=== PATIENT | female | born 1950 | race Caucasian/White ===

== ENCOUNTER → 2017-01-26 | Outpatient (CLI) | payer OTHER ==
[2017-01-26 16:51] LABS: CHCM 32.1; HCT 42.9 % (34.0-46.0); HDW 2.16; MCH 32.6 pg (25.0-35.0); MCHC 32.6 g/dL (31.0-37.0); MCV 99.9 fL (80.0-100.0); Mean Platelet Volume 8.9; RBC 4.29 m/uL (3.80-5.40); WBC 6.5 k/uL (3.8-10.6)
[2017-01-26 17:20] LABS: ALT 34 U/L (9-52); AST 21 U/L (14-36); Alkaline Phosphatase 95 U/L (38-126); Anion Gap 11 mmol/L; Blood Urea Nitrogen 8 mg/dL (7-17); Calcium 9.6 mg/dL (8.4-10.2); Carbon Dioxide 25 mmol/L (22-30); Chloride 106 mmol/L (98-107); Glucose 91 mg/dL (74-99); Non-African American GFR(MDRD) >60 (>60 ml/min/1.73 sqM); Potassium 4.3 mmol/L (3.5-5.1); Sodium 142 mmol/L (137-145); Total Bilirubin 0.3 mg/dL (0.2-1.3); Total Protein 6.6 g/dL (6.3-8.2)
[2017-01-26 17:34] LABS: Prolactin 8.1 ng/mL (3.0-18.6)
[2017-01-26 18:05] LABS: Vitamin B12 449 pg/mL (239-931)
== END | disposition home or self-care (01) ==
LOC: LABWHC1 16:10
PROVIDERS: ATTEND Internal Medicine Endocrinology, Diabetes & Metabolism
DX: R53.83 Other fatigue (principal)
CPT/HCPCS: 36415; 80053; 82533; 82607; 84146; 84439; 84443; 84481; 85027

== ENCOUNTER 2017-02-21 16:04 | Emergency (ER) | payer OTHER ==
[2017-02-21 16:16] VITALS: RESP 18; TEMP 98.1
[2017-02-21] MEDS ORDERED: SODIUM CHLORIDE 0.9% 1,000 ML IV STA (16:20)
[2017-02-21] MEDS ORDERED: LORazepam 2 MG/ML SYRINGE IV STA (16:20)
--- NOTE | 2017-02-21 16:24 | ED ---
General Adult HPI - General Chief complaint: Arrhythmia/Palpitations Stated complaint: Palpitations Time Seen by Provider: 02/21/17 16:14 Source: patient, RN notes reviewed Mode of arrival: EMS Limitations: no limitations - History of Present Illness Initial comments: Patient is a pleasant [age]-year-old female presenting to the emergency department complaining of palpitations. Onset of symptoms was several months ago. Patient admits to having some associated anxiety and tremors. Symptoms are intermittent and occur daily. Patient has seen a couple of doctors for this previously. Patient has also seen a psychiatrist. No chest pain. Patient is currently symptom-free. - Related Data Home Medications Medication Instructions Recorded Confirmed Albuterol Inhaler [Ventolin Hfa 1 - 2 puff INHALATION RT-BID 02/21/17 02/21/17 Inhaler] Diazepam [Valium] 5 mg PO BID PRN 02/21/17 02/21/17 Losartan Potassium [Cozaar] 50 mg PO HS 02/21/17 02/21/17 Multivit with Calcium,Iron,Min 1 tab PO DAILY 02/21/17 02/21/17 [Women's Multivitamin] [place]-3 Fatty Acids/Fish Oil [Fish 1 cap PO DAILY 02/21/17 02/21/17 Oil 1,000 mg Softgel] PARoxetine HCL [Paxil] 20 mg PO HS 02/21/17 02/21/17 Simvastatin [Zocor] 20 mg PO HS 02/21/17 02/21/17 Ubidecarenone [Co Q-10] 100 mg PO DAILY 02/21/17 02/21/17 Vitamin B Complex 1 cap PO DAILY 02/21/17 02/21/17 amLODIPine [Norvasc] 5 mg PO DAILY 02/21/17 02/21/17 Allergies Allergy/AdvReac Type Severity Reaction Status Date / Time No Known Allergies Allergy Unverified 02/21/17 16:41 Review of Systems ROS Statement: Those systems with pertinent positive or pertinent negative responses have been documented in the HPI. ROS Other: All systems not noted in ROS Statement are negative. Constitutional: Denies: fever Eyes: Denies: eye pain ENT: Denies: ear pain Respiratory: Denies: cough Cardiovascular: Reports: palpitations. Denies: chest pain Endocrine: Denies: heat or cold intolerance Gastrointestinal: Denies: abdominal pain Genitourinary: Denies: dysuria Musculoskeletal: Denies: back pain Skin: Denies: rash Neurological: Reports: headache (Patient does have occasional headaches.). Denies: weakness, confusion Past Medical History Past Medical History: COPD History of Any Multi-Drug Resistant Organisms: None Reported Past Surgical History: Breast Surgery, Tubal Ligation Past Psychological History: Depression Smoking Status: Current every day smoker Past Alcohol Use History: None Reported Past Drug Use History: None Reported General Exam Limitations: no limitations General appearance: alert, in no apparent distress Head exam: Present: atraumatic Eye exam: Present: normal appearance, PERRL ENT exam: Present: normal oropharynx Neck exam: Present: normal inspection Respiratory exam: Present: normal lung sounds bilaterally Cardiovascular Exam: Present: regular rate, normal rhythm Expanded Peripheral pulses: 2+: Radial (R), Radial (L) GI/Abdominal exam: Present: soft. Absent: tenderness Extremities exam: Present: normal inspection. Absent: pedal edema, calf tenderness Neurological exam: Present: alert Psychiatric exam: Present: anxious Skin exam: Absent: rash Course Vital Signs 02/21/17 16:13 Temperature 98.1 F Pulse Rate 80 Respiratory 18 Rate Blood Pressure 166/71 O2 Sat by Pulse 97 Oximetry EKG Findings - EKG Comments: EKG Findings:: Normal sinus rhythm at 77. SC 138. QRS 88. QT 44. QTC 457. Normal axis. Normal QRS. Normal ST-T. Medical Decision Making - Medical Decision Making Patient reexamined and resting comfortably in bed. Patient symptom-free at this time. Patient appears much more relaxed. Patient updated on results and need for follow-up. Patient is advised to consider Holter monitor. - Lab Data Result diagrams: 02/21/17 16:35 02/21/17 16:35 Lab Results 02/21/17 02/21/17 02/21/17 Range/Units 16:35 16:35 16:35 WBC 6.8 (3.8-10.6) k/uL RBC 4.67 (3.80-5.40) m/uL Hgb 14.8 (11.4-16.0) gm/dL Hct 45.5 (34.0-46.0) % MCV 97.3 (80.0-100.0) fL MCH 31.8 (25.0-35.0) pg MCHC 32.6 (31.0-37.0) g/dL RDW 13.3 (11.5-15.5) % Plt Count 250 (150-450) k/uL Neutrophils % 66 % Lymphocytes % 24 % Monocytes % 7 % Eosinophils % 1 % Basophils % 0 % Neutrophils # 4.5 (1.3-7.7) k/uL Lymphocytes # 1.6 (1.0-4.8) k/uL Monocytes # 0.5 (0-1.0) k/uL Eosinophils # 0.1 (0-0.7) k/uL Basophils # 0.0 (0-0.2) k/uL PT (9.0-12.0) sec INR (<1.1) APTT (22.0-30.0) sec Sodium 140 (137-145) mmol/L Potassium 4.0 (3.5-5.1) mmol/L Chloride 105 (98-107) mmol/L Carbon Dioxide 24 (22-30) mmol/L Anion Gap 11 mmol/L BUN 5 L (7-17) mg/dL Creatinine 0.66 (0.52-1.04) mg/dL Est GFR (MDRD) Af Amer >60 (>60 ml/min/1.73 sqM) Est GFR (MDRD) Non-Af >60 (>60 ml/min/1.73 sqM) Glucose 106 H (74-99) mg/dL Calcium 9.8 (8.4-10.2) mg/dL Magnesium 1.9 (1.6-2.3) mg/dL Total Bilirubin 0.6 (0.2-1.3) mg/dL AST 27 (14-36) U/L ALT 28 (9-52) U/L Alkaline Phosphatase 96 (38-126) U/L Total Creatine Kinase 101 (30-135) U/L CK-MB (CK-2) 0.5 (0.0-2.4) ng/mL CK-MB (CK-2) Rel Index 0.5 Troponin I <0.012 (0.000-0.034) ng/mL Total Protein 7.4 (6.3-8.2) g/dL Albumin 4.5 (3.5-5.0) g/dL TSH 1.090 (0.465-4.680) mIU/L Free T4 0.90 (0.78-2.19) ng/dL Free T3 pg/mL 3.4 (2.8-5.3) pg/ml 02/21/17 Range/Units 16:35 WBC (3.8-10.6) k/uL RBC (3.80-5.40) m/uL Hgb (11.4-16.0) gm/dL Hct (34.0-46.0) % MCV (80.0-100.0) fL MCH (25.0-35.0) pg MCHC (31.0-37.0) g/dL RDW (11.5-15.5) % Plt Count (150-450) k/uL Neutrophils % % Lymphocytes % % Monocytes % % Eosinophils % % Basophils % % Neutrophils # (1.3-7.7) k/uL Lymphocytes # (1.0-4.8) k/uL Monocytes # (0-1.0) k/uL Eosinophils # (0-0.7) k/uL Basophils # (0-0.2) k/uL PT 10.2 (9.0-12.0) sec INR 1.0 (<1.1) APTT 23.8 (22.0-30.0) sec Sodium (137-145) mmol/L Potassium (3.5-5.1) mmol/L Chloride (98-107) mmol/L Carbon Dioxide (22-30) mmol/L Anion Gap mmol/L BUN (7-17) mg/dL Creatinine (0.52-1.04) mg/dL Est GFR (MDRD) Af Amer (>60 ml/min/1.73 sqM) Est GFR (MDRD) Non-Af (>60 ml/min/1.73 sqM) Glucose (74-99) mg/dL Calcium (8.4-10.2) mg/dL Magnesium (1.6-2.3) mg/dL Total Bilirubin (0.2-1.3) mg/dL AST (14-36) U/L ALT (9-52) U/L Alkaline Phosphatase (38-126) U/L Total Creatine Kinase (30-135) U/L CK-MB (CK-2) (0.0-2.4) ng/mL CK-MB (CK-2) Rel Index Troponin I (0.000-0.034) ng/mL Total Protein (6.3-8.2) g/dL Albumin (3.5-5.0) g/dL TSH (0.465-4.680) mIU/L Free T4 (0.78-2.19) ng/dL Free T3 pg/mL (2.8-5.3) pg/ml - Radiology Data Radiology results: report reviewed (Computed tomography scan of the brain shows no acute process.), image reviewed (Chest x-ray shows no acute process.) Disposition Clinical Impression: Palpitations Disposition: HOME SELF-CARE Condition: Stable Instructions: Palpitations (ED) Additional Instructions: Please follow-up tomorrow with Dr. Kenyon as planned. Consider Holter monitor. Return for changing or worsening symptoms or other concerns. Referrals: Lavern Kenyon MD [Primary Care Provider] - 1-2 days
[2017-02-21 16:47] LABS: Basophils % (A) 0 %; CH 31.4; CHCM 32.4; Eosinophils # (A) 0.1 k/uL (0-0.7); Eosinophils % (A) 1 %; HCT 45.5 % (34.0-46.0); HGB 14.8 gm/dL (11.4-16.0); Luc # (Auto) 0.11; Luc % (Auto) 2; Lymphocytes # (A) 1.6 k/uL (1.0-4.8); Lymphocytes % (A) 24 %; MCH 31.8 pg (25.0-35.0); MCHC 32.6 g/dL (31.0-37.0); MCV 97.3 fL (80.0-100.0); Monocytes # (A) 0.5 k/uL (0-1.0); Monocytes % (A) 7 %; Neutrophils # (A) 4.5 k/uL (1.3-7.7); Neutrophils % (A) 66 %; RBC 4.67 m/uL (3.80-5.40); RDW 13.3 % (11.5-15.5); WBC 6.8 k/uL (3.8-10.6); WBC (Perox) 6.63
[2017-02-21 16:54] LABS: Partial Thromboplastin Time 23.8 sec (22.0-30.0); Prothrombin Time 10.2 sec (9.0-12.0)
[2017-02-21 17:02] LABS: ALT 28 U/L (9-52); AST 27 U/L (14-36); Alkaline Phosphatase 96 U/L (38-126); Anion Gap 11 mmol/L; Blood Urea Nitrogen 5 mg/dL (7-17); Calcium 9.8 mg/dL (8.4-10.2); Carbon Dioxide 24 mmol/L (22-30); Chloride 105 mmol/L (98-107); Glucose 106 mg/dL (74-99); Magnesium 1.9 mg/dL (1.6-2.3); Non-African American GFR(MDRD) >60 (>60 ml/min/1.73 sqM); Sodium 140 mmol/L (137-145); Total Bilirubin 0.6 mg/dL (0.2-1.3); Total Protein 7.4 g/dL (6.3-8.2)
[2017-02-21 17:12] LABS: Creatine Kinase 101 U/L (30-135)
[2017-02-21 17:24] LABS: Creatine Kinase MB 0.5 ng/mL (0.0-2.4); Troponin I <0.012 ng/mL (0.000-0.034)
--- NOTE | 2017-02-21 17:36 | XR ---
EXAMINATION TYPE: XR chest 1V portable DATE OF EXAM: 02/21/2017 5:25 PM COMPARISON: NONE HISTORY: Headache and neck pain with tachycardia TECHNIQUE: Single frontal view of the chest is obtained. FINDINGS: There is no focal air space opacity, pleural effusion, or pneumothorax seen. The cardiac silhouette size is within normal limits. Smoothly marginated calcific opacity projecting over the rig ht midlung zone just inferior to the scapula, likely pulmonary granuloma. The osseous structures are intact. IMPRESSION: No acute process.
--- NOTE | 2017-02-21 17:43 | CT ---
EXAMINATION TYPE: CT brain wo con DATE OF EXAM: 02/21/2017 5:30 PM COMPARISON: NONE HISTORY: headaches CT DLP: 1022 mGycm Automated exposure control for dose reduction was used. FINDINGS: There is no acute intracranial hemorrhage, mass effect, or midline shift identified. The ventricles and sulci are within normal limits in size. The globes are intact and the visualized sinuses are noel ar. IMPRESSION: No acute intracranial hemorrhage, mass effect, or midline shift is seen.
[2017-02-21 18:04] VITALS: BP 133/63; PULSE 73
== END 2017-02-21 18:25 | disposition home or self-care (01) ==
LOC: EC 16:04
DX: R00.2 Palpitations (principal); R25.1 Tremor, unspecified; F41.9 Anxiety disorder, unspecified; J44.9 Chronic obstructive pulmonary disease, unspecified; F32.9 Major depressive disorder, single episode, unspecified; F17.200 Nicotine dependence, unspecified, uncomplicated; Z79.899 Other long term (current) drug therapy
CPT/HCPCS: 99285; 96374; 36415; 93005; 84439; 84481; 80053; 82550; 82553; 83735; 84443; 84484; 85025; 85610; 85730; 71010; 70450; J2060

== ENCOUNTER 2017-03-03 17:44 | Emergency (ER) | payer OTHER ==
[2017-03-03 17:51] VITALS: RESP 16
[2017-03-03 19:58] VITALS: BP 134/76; PULSE 93; TEMP 98.5
[2017-03-03] MEDS ORDERED: LORazepam 1 MG TAB PO STA (20:10)
--- NOTE | 2017-03-03 20:13 | ED ---
Anxiety HPI - General Chief Complaint: Anxiety Stated Complaint: Anxiety Time Seen by Provider: 03/03/17 19:27 Source: patient, RN notes reviewed, old records reviewed Mode of arrival: ambulatory - History of Present Illness Initial Comments: Patient is a 66 year old woman with chief omplaint of anxiety. She reports she has suffered from anxiety for many months, and her PCP and psychiatrist have switched her from paxil to celexa to prozac, back to paxil. She states she was seen in and given Ativan. Patient reports she saw her PCP and was prescribed ativan and has been taking it as it was directed. She states that she called her PCP for refill of medication, and PCP is out of town. She denies any suicidal ideation, denies homicidal thoughts. She reports that she has racing thoughts and can't calm down. She states she has appt with psychiatrist in 2 weeks. - Related Data Home Medications: Home Medications Medication Instructions Recorded Confirmed Albuterol Inhaler [Ventolin Hfa 2 puff INHALATION RT-BID PRN 02/21/17 03/03/17 Inhaler] Losartan Potassium [Cozaar] 50 mg PO HS 02/21/17 03/03/17 Multivit with Calcium,Iron,Min 1 tab PO DAILY 02/21/17 03/03/17 [Women's Multivitamin] PARoxetine HCL [Paxil] 40 mg PO HS 02/21/17 03/03/17 amLODIPine [Norvasc] 5 mg PO DAILY 02/21/17 03/03/17 LORazepam [Ativan] 0.5 mg PO QID PRN 03/03/17 03/03/17 Previous Rx's Medication Instructions Recorded LORazepam [Ativan] 1 mg PO BID #20 tab 03/03/17 Allergies/Adverse Reactions: Allergies Allergy/AdvReac Type Severity Reaction Status Date / Time No Known Allergies Allergy Verified 03/03/17 19:31 Review of Systems ROS Statement: Those systems with pertinent positive or pertinent negative responses have been documented in the HPI. ROS Other: All systems not noted in ROS Statement are negative. Past Medical History Past Medical History: COPD History of Any Multi-Drug Resistant Organisms: None Reported Past Surgical History: Breast Surgery, Tubal Ligation Past Psychological History: Anxiety, Depression Smoking Status: Current every day smoker Past Alcohol Use History: None Reported Past Drug Use History: None Reported General Exam - General Exam Comments Initial Comments: pleasant, anxious appearing 66 year old female, no distress. Limitations: no limitations General appearance: alert, in no apparent distress Head exam: Present: atraumatic, normocephalic, normal inspection Eye exam: Present: normal appearance, PERRL, EOMI. Absent: scleral icterus, conjunctival injection, periorbital swelling ENT exam: Present: normal exam, mucous membranes moist Neck exam: Present: normal inspection. Absent: tenderness, meningismus, lymphadenopathy Respiratory exam: Present: normal lung sounds bilaterally. Absent: respiratory distress, wheezes, rales, rhonchi, stridor Cardiovascular Exam: Present: regular rate, normal rhythm, normal heart sounds. Absent: systolic murmur, diastolic murmur, rubs, gallop, clicks GI/Abdominal exam: Present: soft, normal bowel sounds. Absent: distended, tenderness, guarding, rebound, rigid Extremities exam: Present: normal inspection, full ROM, normal capillary refill. Absent: tenderness, pedal edema, joint swelling, calf tenderness Back exam: Present: normal inspection Neurological exam: Present: alert, oriented X3, CN II-XII intact Psychiatric exam: Present: normal affect, normal mood, anxious Skin exam: Present: warm, dry, intact, normal color. Absent: rash Course Vital Signs 03/03/17 03/03/17 17:46 19:32 Temperature 98.1 F 98.5 F Pulse Rate 98 93 Respiratory 16 16 Rate Blood Pressure 146/66 134/76 O2 Sat by Pulse 97 97 Oximetry Medical Decision Making - Medical Decision Making Patient is a 66 year old woman with chief omplaint of anxiety. She reports she has suffered from anxiety for many months, and her PCP and psychiatrist have switched her from paxil to celexa to prozac, back to paxil. She states she was seen in and given Ativan. Patient reports she saw her PCP and was prescribed ativan and has been taking it as it was directed. She states that she called her PCP for refill of medication, and PCP is out of town. Patient given refill for ativan, discussed follow up with PCP. Patient agrees to see psychiatrist. Patient understands treatment plan and return parameters, denies any other physical symptoms. Disposition Clinical Impression: Acute anxiety Disposition: HOME SELF-CARE Condition: Good Instructions: Generalized Anxiety Disorder (ED) Additional Instructions: Patient resting medications and follow-up with primary care provider. Return to the emergency department if any alarming signs or symptoms occur. Prescriptions: LORazepam [Ativan] 1 mg PO BID #20 tab Referrals: Lavern Kenyon MD [Primary Care Provider] - 1-2 days Time of Disposition: 20:10
== END 2017-03-03 20:39 | disposition home or self-care (01) ==
LOC: EC 17:44
DX: F41.9 Anxiety disorder, unspecified (principal); F32.9 Major depressive disorder, single episode, unspecified; F17.200 Nicotine dependence, unspecified, uncomplicated; Z79.899 Other long term (current) drug therapy
CPT/HCPCS: 99283

== ENCOUNTER → 2017-03-07 | Outpatient (CLI) | payer OTHER ==
--- NOTE | 2017-03-08 09:47 | WWHP ---
DATE OF SERVICE: 03/07/2017 CHIEF COMPLAINT: The patient is here for her routine gynecologic exam and mammogram. HPI: This is a 66-year-old G4, P3-0-1-3 with an LMP of 2005. The patient is without gynecologic complaints and denies any postmenopausal bleeding. PAST MEDICAL HISTORY: Chronic hypertension, emphysema, depression. MEDICATIONS: 1. Amlodipine 5 mg daily. 2. Losartan 50 mg daily. 3. Paroxetine 40 mg daily. 4. Ativan 2 mg daily. 5. Ventolin inhaler b.i.d. ALLERGIES: No known drug allergies. 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 SOCIAL HISTORY: She still smokes about 1 pack of cigarettes per day and denies alcohol and drug use. She has been since 2010. Her has chronic kidney problems. She is retired. REVIEW OF SYSTEMS: She has lost about 10 pounds over the last year. She denies respiratory, cardiac, or GI problems. PHYSICAL EXAM: Blood pressure 129/60. Height 5 feet 4-1/2 inches. Weight 164 pounds. Temperature 97.9, pulse 85. This is a well-developed, well-nourished white female who is alert and oriented x3 in no acute distress. HEENT is within normal limits. NECK: Supple without mass or thyromegaly. CHEST AND LUNGS: Clear to auscultation. HEART: Regular rate and rhythm. BREASTS: Without mass or discharge. Axillary exam is negative for adenopathy. BACK: Negative for CVA tenderness. ABDOMEN: Soft, nontender, without palpable masses. PELVIC EXAM: External genitalia reveals mild atrophy without lesions. Cervix and vagina reveal mild atrophy without lesions. There is no significant prolapse. The uterus is midposition, nongravid size and nontender. There are no palpable adnexal masses or tenderness. Rectovaginal exam is negative for mass or tenderness and is negative for occult blood. EXTREMITIES: Nontender. IMPRESSION: A 66-year-old menopausal female with normal gynecologic exam. PLAN: 1. Pap smear was deferred since she had a normal one last year. 2. Self-breast examination was discussed. 3. Mammogram will be done today. 4. Osteoporosis prevention was discussed. Will plan on repeating bone density testing in about 4 years. 5. She will return in one year.
--- NOTE | 2017-03-09 10:42 | MM ---
Reason for exam: screening (asymptomatic). Last mammogram was performed 1 year and 5 months ago. History: Patient is postmenopausal. Benign excisional biopsy of the left breast, 1997. Physical Findings: A clinical breast exam by your physician is recommended on an annual basis and results should be correlated with mammographic findings. MG 3D Screening Mammo W/Cad Bilateral CC and MLO view(s) were taken. Prior study comparison: October 20, 2015, bilateral MG 3d screening mammo w/cad. There are scattered fibroglandular densities. Finding: There are typically benign round calcifications in the right breast. No significant changes in finding since October 20, 2015. ASSESSMENT: Benign, BI-RAD 2 RECOMMENDATION: Routine screening mammogram of both breasts in 1 year.
== END | disposition home or self-care (01) ==
LOC: WWCWWP 15:16
PROVIDERS: ATTEND Obstetrics & Gynecology
DX: Z12.31 Encounter for screening mammogram for malignant neoplasm of breast (principal)
CPT/HCPCS: 77063; G0202

== ENCOUNTER → 2017-04-12 | Outpatient (CLI) | payer OTHER ==
[2017-04-12 17:11] LABS: Blood Urea Nitrogen 11 mg/dL (7-17); Non-African American GFR(MDRD) >60 (>60 ml/min/1.73 sqM)
--- NOTE | 2017-04-12 21:54 | MR ---
EXAMINATION TYPE: MR brain wo/w con DATE OF EXAM: 04/12/2017 COMPARISON: CT brain February 21, 2017. HISTORY: Headaches per order not further specified. Headaches and dizziness per patient. TECHNIQUE: Multiplanar, multisequence images of the brain and brainstem is performed without and with IV contras t, utilizing 15 mL intravenous MultiHance . FINDINGS: Diffusion weighted images demonstrate no evidence of a recent infarct or other diffusion ab normality. There is no worrisome extra-axial fluid collection. The ventricular system and cisternal spaces are normal in size and appearance. The brain volume is age appropriate. There are few scatte red foci of T2 hyperintensity seen throughout the white matter bilaterally. Less than 6 lesions are p resent. For reference largest lesion measures 3 mm right frontal lobe on axial image 24. Lesions are nonspecific in appearance and distribution. Midline structures demonstrate normal morphology. The craniocervical junction appears within normal limits. Post contrast images demonstrate no abnormal enhancement. The dural venous sinuses appear pa tent. The visualized sinuses are clear. There is artifact distortion of both globes which appear with in normal limits on CT. On inferior most axial images there is round well-circumscribed 11 mm T2 hype rintense nonenhancing lesion favoring thin-walled cyst in the superior oropharynx left aspect at leve l of the parotid gland deep aspect favoring benign etiology, can be correlated with contrast-enhanced neck CT if desired. T2 shine through suspected on diffusion-weighted imaging. IMPRESSION: 1. Minimal nonspecific white matter changes likely of clinical insignificance as detailed above, no s ignificant finding is seen to account for patient's symptoms. Attention to deep left parotid gland at level of the superior oropharynx.
== END | disposition home or self-care (01) ==
LOC: RADMRIMAIN 16:37
PROVIDERS: ATTEND Psychiatry & Neurology Pain Medicine
DX: R90.82 White matter disease, unspecified (principal); R51 Headache
CPT/HCPCS: 82565; 84520; 70553; A9577

== ENCOUNTER 2017-05-28 19:16 | Emergency (ER) | payer OTHER ==
[2017-05-28 19:26] VITALS: RESP 20
--- NOTE | 2017-05-28 19:49 | ED ---
Psych HPI - General Chief Complaint: Psychiatric Symptoms Stated Complaint: mental health Time Seen by Provider: 05/28/17 19:38 Source: patient, family, RN notes reviewed Mode of arrival: ambulatory Limitations: no limitations - History of Present Illness Initial Comments: This a 66-year-old female presents emergency department with family chief complaint psychiatric evaluation. Patient states that that she has been on multiple psychiatric medications and had constantly switching her. Patient states that she is currently being weaned off Prozac and states that she is switching to another medication. Patient uses see a psychiatrist but currently does not. Patient states she cannot live like this anymore she states that she feels that she is suicidal but has not that plan herself. Denies any homicidal thoughts. Denies any drug abuse or any alcohol abuse. Patient has no physical complaints this time. Patient offers no other complaints. - Related Data Home Medications Medication Instructions Recorded Confirmed Albuterol Inhaler [Ventolin Hfa 2 puff INHALATION RT-BID PRN 02/21/17 05/28/17 Inhaler] Losartan Potassium [Cozaar] 50 mg PO HS 02/21/17 05/28/17 amLODIPine [Norvasc] 5 mg PO DAILY 02/21/17 05/28/17 FLUoxetine HCL [PROzac] 10 mg PO DAILY 05/28/17 05/28/17 LORazepam [Ativan] 1 mg PO DAILY PRN 05/28/17 05/28/17 Simvastatin [Zocor] 20 mg PO HS 05/28/17 05/28/17 Verapamil HCl [Verapamil ER] 120 mg PO HS 05/28/17 05/28/17 Vortioxetine Hydrobromide 5 mg PO Q48H 05/28/17 05/28/17 [Trintellix] Allergies Allergy/AdvReac Type Severity Reaction Status Date / Time No Known Allergies Allergy Verified 05/28/17 19:53 Review of Systems ROS Statement: Those systems with pertinent positive or pertinent negative responses have been documented in the HPI. ROS Other: All systems not noted in ROS Statement are negative. Past Medical History Past Medical History: COPD History of Any Multi-Drug Resistant Organisms: None Reported Past Surgical History: Breast Surgery, Tubal Ligation Past Psychological History: Anxiety, Depression Smoking Status: Current every day smoker Past Alcohol Use History: None Reported Past Drug Use History: None Reported General Exam Limitations: no limitations General appearance: alert, in no apparent distress Head exam: Present: atraumatic, normocephalic, normal inspection Respiratory exam: Present: normal lung sounds bilaterally. Absent: respiratory distress, wheezes, rales, rhonchi, stridor Cardiovascular Exam: Present: regular rate, normal rhythm, normal heart sounds. Absent: systolic murmur, diastolic murmur, rubs, gallop, clicks GI/Abdominal exam: Present: soft, normal bowel sounds. Absent: distended, tenderness, guarding, rebound, rigid Neurological exam: Present: alert, oriented X3, CN II-XII intact Skin exam: Present: warm, dry, intact, normal color. Absent: rash Course Vital Signs 05/28/17 19:23 Temperature 98.6 F Pulse Rate 106 H Respiratory 20 Rate Blood Pressure 138/69 O2 Sat by Pulse 99 Oximetry Medical Decision Making - Medical Decision Making 66-year-old female presented emergency Department for psychiatric evaluation. 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 They do not recommend inpatient treatment this time. Patient is on a low-dose dose of all her psychiatric medication isn't currently being weaned off him. This most likely is making worsening of her symptoms. - Lab Data Lab Results 05/28/17 Range/Units 19:59 Urine Color Colorless Urine Appearance Clear (Clear) Urine pH 6.5 (5.0-8.0) Ur Specific [place] 1.000 L (1.001-1.035) Urine Protein Negative (Negative) Urine Glucose (UA) Negative (Negative) Urine Ketones Negative (Negative) Urine Blood Negative (Negative) Urine Nitrite Negative (Negative) Urine Bilirubin Negative (Negative) Urine Urobilinogen <2.0 (<2.0) mg/dL Ur Leukocyte Esterase Negative (Negative) Urine Opiates Screen Not Detected (NotDetected) Ur Oxycodone Screen Not Detected (NotDetected) Urine Methadone Screen Not Detected (NotDetected) Ur Propoxyphene Screen Not Detected (NotDetected) Ur Barbiturates Screen Not Detected (NotDetected) U Tricyclic Antidepress Not Detected (NotDetected) Ur Phencyclidine Scrn Not Detected (NotDetected) Ur Amphetamines Screen Not Detected (NotDetected) U Methamphetamines Scrn Not Detected (NotDetected) U Benzodiazepines Scrn Not Detected (NotDetected) Urine Cocaine Screen Not Detected (NotDetected) U Marijuana (THC) Screen Not Detected (NotDetected) Disposition Clinical Impression: Acute anxiety Disposition: HOME SELF-CARE Condition: Stable Instructions: Generalized Anxiety Disorder (ED) Additional Instructions: Please return to the Emergency Department if symptoms worsen or any other concerns. Referrals: Frank Grant MD [Primary Care Provider] - 1-2 days Time of Disposition: 22:00
[2017-05-28 20:17] LABS: Appearance,Urine Clear (Clear); Bilirubin,Urine Negative (Negative); Glucose,Urine (UA) Negative (Negative); Ketones,Urine Negative (Negative); Leukocyte Esterase,Urine Negative (Negative); Nitrite,Urine Negative (Negative); PH, Urine 6.5 (5.0-8.0); Protein,Urine Negative (Negative); UA Billing (MACRO vs. MICRO) CHEM; Urobilinogen,Urine <2.0 mg/dL (<2.0)
[2017-05-28 22:11] VITALS: BP 148/70; PULSE 77; TEMP 97.4
== END 2017-05-28 22:24 | disposition home or self-care (01) ==
LOC: EC 19:16
DX: R45.851 Suicidal ideations (principal); F41.9 Anxiety disorder, unspecified; F32.9 Major depressive disorder, single episode, unspecified; F17.200 Nicotine dependence, unspecified, uncomplicated; Z79.899 Other long term (current) drug therapy
CPT/HCPCS: 80306; 81003; 82075; 99284

== ENCOUNTER → 2017-06-28 | Outpatient (CLI) | payer OTHER ==
--- NOTE | 2017-06-28 14:08 | CT ---
EXAMINATION TYPE: CT soft tissue neck wo con DATE OF EXAM: 06/28/2017 COMPARISON: NONE HISTORY: Parotid cyst (pt doesn't know what side feels nothing) CT DLP: 373.[address] of the neck was performed from the skull base through the lung apices. The lack of cont rast does limit evaluation. AIRWAY: The supraglottic, glottic, and subglottic portions of the airway appear patent and free of mass. SALIVARY GLANDS: The submandibular and parotid glands are free of mass or inflammatory process. THYROID GLAND: No nodules or masses seen. LYMPH NODES: No adenopathy seen greater than 1cm. LUNG APICES: No nodule or mass is seen. OTHER: Vascular structures are patent. Moderate to severe degenerative narrowing and reversal of cer vical lordosis. No abscess seen. IMPRESSION: No distinct parotid lesions identified.
== END | disposition home or self-care (01) ==
LOC: RADCTMAIN 13:12
PROVIDERS: ATTEND Family Medicine
DX: K11.6 Mucocele of salivary gland (principal)
CPT/HCPCS: 70490

== ENCOUNTER → 2017-11-17 | Outpatient (CLI) | payer MEDICARE, OTHER ==
[2017-11-17 13:22] LABS: Blood Urea Nitrogen 11 mg/dL (7-17)
--- NOTE | 2017-11-17 14:22 | MR ---
EXAMINATION TYPE: MR brain wo/w con DATE OF EXAM: 11/17/2017 COMPARISON: Prior MRI brain April 12, 2017 HISTORY: BAUTISTA unusual duration per order. Brain spots per cheryl ent. TECHNIQUE: Multiplanar, multisequence images of the brain and brainstem is performed without and with IV contras t, utilizing 7.5 mL intravenous Gadavist gadolinium contrast is administered intravenously. Demyelin ating disease protocol with additional Sagittal Flair sequence performed. FINDINGS: T2 Lesions Present : Yes Approximate Number of Lesions: (Less than 6 Locations Identified : Stable scattered Size of Reference Lesion(s): 1. 0.4 x 0.3 x 0.2 cm on axial image 22 and sagittal image 14 left frontal lesion felt stable. Enhancing Lesion(s) Present: No Change from Prior: Stable Diffusion weighted images demonstrate no evidence of a recent infarct or other diffusion abnormality. There is no worrisome extra-axial fluid collection. The ventricular system and cisternal spaces ar e normal in size and appearance. The brain volume is age appropriate. Midline structures demonstrate normal morphology. The craniocervical junction appears within normal limits. Post contrast images demonstrate no abnormal enhancement. The dural venous sinuses appear pa tent. The visualized sinuses are clear and the globes are intact. Thin-walled cystic lesion deep inf erior left parotid gland level is not clearly identified on current study. IMPRESSION: Mild to minimal nonspecific white matter changes redemonstrated felt stable. No new or en hancing lesions are seen. No significant new finding identified to account for patient's symptoms.
== END | disposition home or self-care (01) ==
LOC: RADMRIMAIN 12:42
PROVIDERS: ATTEND Psychiatry & Neurology Neurology
DX: R90.82 White matter disease, unspecified (principal)
CPT/HCPCS: 82565; 84520; 70553; A9581

== ENCOUNTER → 2018-03-16 | Outpatient (CLI) | payer MEDICARE, OTHER ==
[2018-03-16 18:00] LABS: Blood Urea Nitrogen 7 mg/dL (7-17)
--- NOTE | 2018-03-17 11:21 | CT ---
EXAMINATION TYPE: CT abdomen wo/w con DATE OF EXAM: 03/16/2018 COMPARISON: NONE HISTORY: Upper Abdominal pain CT DLP: 1595 mGycm Automated exposure control for dose reduction was used. TECHNIQUE: Helical acquisition of images was performed from the lung bases through the top of iliac crest to include entire abdomen. CONTRAST: Performed with Oral Contrast and without and with IV Contrast, patient injected with 100 mL of Isovu e 300. FINDINGS: LUNG BASES: No significant abnormality is appreciated. LIVER/GB: At least 2 subcentimeter hepatic cysts are seen. No solid hepatic lesions noted. The gallbl adder is unremarkable. PANCREAS: No significant abnormality is seen. SPLEEN: No significant abnormality is seen. ADRENALS: No significant abnormality is seen. KIDNEYS: No significant abnormality is seen. BOWEL: Appendix is normal. Visualized small and large bowel are of normal caliber. LYMPH NODES: No significant abnormality is seen. OSSEOUS STRUCTURES: No significant abnormality is seen. FREE AIR: No free air is visualized. OTHER: . Atheromatous change of the abdominal aorta without evidence for aneurysm. IMPRESSION: 1. NO SIGNIFICANT ABNORMALITY TO ACCOUNT FOR THE PATIENT'S SYMPTOMS.
== END | disposition home or self-care (01) ==
LOC: RADCTMAIN 17:28
PROVIDERS: ATTEND Urology
DX: D41.01 Neoplasm of uncertain behavior of right kidney (principal)
CPT/HCPCS: 82565; 84520; 74170; 36415; Q9967

== ENCOUNTER → 2018-05-22 | Outpatient (CLI) | payer MEDICARE, OTHER ==
[2018-05-22 13:00] VITALS: BP 123/77; PULSE 77; TEMP 97.8
--- NOTE | 2018-05-22 13:44 | P.HPOB ---
History of Present Illness H&P Date: 05/22/18 Chief Complaint: The patient is here for her routine gynecologic exam and mammogram. This is a 67-year-old with an LMP of 2004. The patient recently was experiencing some intermittent right pelvic pains and underwent a pelvic ultrasound at [facility] within the last 2 months. She states the ultrasound was unremarkable. She is otherwise without gynecologic complaints and denies any postmenopausal bleeding. Review of Systems Weight has been stable. She denies respiratory, cardiac and G.I. problems. She denies maltreatment. She states she did have some episodes of following during the past year when she was wearing a cast. She is no longer having problems with this. : she denies any significant problems with urinary leakage. 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 History of Any Multi-Drug Resistant Organisms: None Reported Past Surgical History: Breast Surgery (Biopsy 1992), Joint Replacement (Hip surgery 2006), Tubal Ligation Additional Past Surgical History / Comment(s): D&C 2007, colonoscopy 2018(2nd) Past Psychological History: Anxiety, Depression Smoking Status: Current every day smoker (1- 1 1/2 packs per day) Past Alcohol Use History: None Reported Past Drug Use History: None Reported Additional History: She has been since 2010. Her has dementia and chronic renal problems. She is retired. - Past Family History Father Family Medical History: Myocardial Infarction ([place]) Mother Family Medical History: Cancer ([place]erv[place]) Sister(s) Family Medical History: Diabetes Mellitus Medications and Allergies Home Medications Medication Instructions Recorded Confirmed Type Losartan Potassium [Cozaar] 50 mg PO HS 02/21/17 05/22/18 History amLODIPine [Norvasc] 5 mg PO DAILY 02/21/17 05/22/18 History FLUoxetine HCL [PROzac] 30 mg PO DAILY 05/28/17 05/22/18 History Simvastatin [Zocor] 20 mg PO HS 05/28/17 05/22/18 History ALPRAZolam [Xanax XR] mg PO DAILY 05/22/18 History risperiDONE [Risperdal M-Tab] mg PO DAILY 05/22/18 History Allergies Allergy/AdvReac Type Severity Reaction Status Date / Time No Known Allergies Allergy Verified 05/22/18 12:52 Exam Vital Signs Temp Pulse BP 05/22/18 12:52 97.8 F 77 123/77 Intake and Output 05/21/18 05/22/18 05/22/18 22:59 06:59 14:59 Other: Weight 79.379 kg Height 5'4", BMI 30.0. This is a well-developed well-nourished white female who is alert and oriented times 3 in no acute distress. HEENT: Within normal limits. NECK: Supple without mass or thyromegaly. CHEST AND LUNGS: mildly increased time of expiration , otherwise clear to auscultation. HEART: Regular rate and rhythm. BREASTS: Are without mass or discharge. AXILLARY EXAM: Negative for adenopathy. BACK: Negative for CVA tenderness. ABDOMEN: Soft, nontender, without palpable masses. PELVIC EXAM: Normal external genitalia with mild atrophy. Cervix and vagina appear normal with mild atrophy. There is no unusual discharge. There is no evidence of prolapse. The uterus is midposition, nongravid size and nontender. There are no palpable adnexal masses or tenderness. RECTAL EXAM: recto- vaginal exam is negative for mass or tenderness and is negative for occult blood. EXTREMITIES: non-tender. IMPRESSION: 1. 67-year-old menopausal female with normal gynecologic exam. PLAN: 1. Pap smear was performed. 2. Self breast awareness was discussed. 3. Screening mammogram will be done today. 4. Osteoporosis prevention was discussed. She had a normal bone density test on 10/20/2015. We will plan on repeating this in the year 2020. 5. She will try to have the pelvic ultrasound done within the last 2 months results sent to me. 6. She does not get flu shots in the fall and is not interested in getting them. 7. I have recommended that she tried to quit smoking and we've discussed ways of trying to do this. 8. She will return one year.
--- NOTE | 2018-05-24 11:46 | MM ---
Reason for exam: screening (asymptomatic). Last mammogram was performed 1 year and 2 months ago. History: Patient is postmenopausal. Benign excisional biopsy of the left breast, 1997. Physical Findings: A clinical breast exam by your physician is recommended on an annual basis and results should be correlated with mammographic findings. MG 3D Screening Mammo W/Cad Bilateral CC and MLO view(s) were taken. Prior study comparison: March 07, 2017, bilateral MG 3d screening mammo w/cad. October 20, 2015, bilateral MG 3d screening mammo w/cad. There are scattered fibroglandular densities. No significant changes when compared with prior studies. ASSESSMENT: Negative, BI-RAD 1 RECOMMENDATION: Routine screening mammogram of both breasts in 1 year.
== END | disposition home or self-care (01) ==
LOC: WWCWWP 12:32
PROVIDERS: ATTEND Obstetrics & Gynecology
DX: Z12.31 Encounter for screening mammogram for malignant neoplasm of breast (principal); Z78.0 Asymptomatic menopausal state
CPT/HCPCS: 77063; 77067

== ENCOUNTER → 2018-11-28 | Outpatient (CLI) | payer MEDICARE, OTHER ==
--- NOTE | 2018-11-28 21:32 | MR ---
EXAMINATION TYPE: MR lumbar spine wo con DATE OF EXAM: 11/28/2018 COMPARISON: CT abdomen March 16, 2018 HISTORY: Acute Low back pain with sciatica per order. Lower back and bilateral leg pain/weakness for several weeks per patient. TECHNIQUE: Multiplanar, multisequence imaging of the lumbar spine is performed without IV contrast. FINDINGS: Sagittal images of the lumbar spine show vertebral body heights and alignment to remain sat isfactory. Multilevel disc desiccation is seen. There is persistent moderate to advanced disc space narrowing L4-L5 level with vacuum disc phenomenon and advanced disc space narrowing L5-S1 level. Hete rogeneous multinodular type II endplate changes at these levels are present with moderate anterior sp urring. Posterior disc herniations are seen at these levels as well as at L2-L3 level on sagittal vale ges. The conus medullaris is normal in position and signal ending inferior L1 level. Axial images at the T12-L1 level shows mild broad-based disc bulge minimally effaces the anterior the yessi sac, bilateral neural foramina are patent. Axial images at L1-L2 level mild broad disc bulge mildly effaces the anterior thecal sac on axial vale ge 29 with mild facet degenerative changes bilaterally. Bilateral neural foramen are patent. Axial images at L2-L3 level show moderate broad disc bulge with right paracentral superior protrusion component effacing the anterior thecal sac and mild facet degenerative changes bilaterally. There is mild to moderate bilateral anterior inferior neural foraminal narrowing seen. Axial images at L3-L4 level show mild broad disc bulge but spinal canal is minimally effaced and bila teral neural foramina are patent. Axial images at L4-L5 level shows mild facet degenerative changes bilaterally. There is moderate to s evere broad-based disc bulge effacing anterior thecal sac. There is moderate left greater than right inferior neural foraminal narrowing. Axial images at L5-S1 level show moderate facet degenerative changes bilaterally. There is broad-base d posterior disc protrusion seen. There is moderate left and [id number] right-sided inferior ne ural foraminal narrowing noted. No suspicious incidental retroperitoneal findings are seen. IMPRESSION: Multilevel degenerative changes in the lumbar spine most prominent at L2-L3, L4-L5, and L 5-S1 levels as detailed above.
== END | disposition home or self-care (01) ==
LOC: RADMRIMAIN 17:03
PROVIDERS: ATTEND Family Medicine
DX: M47.816 Spondylosis without myelopathy or radiculopathy, lumbar region (principal); M47.817 Spondylosis without myelopathy or radiculopathy, lumbosacral region
CPT/HCPCS: 72148

== ENCOUNTER 2019-08-19 07:53 | Day surgery (SDC) | payer MEDICARE, OTHER ==
[2019-08-14 15:28] VITALS: BMI 26.2
[~2019-08-19 07:53] MED LIST: DEXAMETHASONE SOD PHOSPHATE 10 MG/ML 1 ML VIAL IV ONE; HEPARIN SODIUM,PORCINE 5,000 UNIT/ML 1 ML VIAL SQ ONE; LACTATED RINGERS 1,000 ML IV SCH; LIDOCAINE 1% 20 ML VIAL (10MG/ML) FOR IV START INTRADERMA PRN; MIDAZOLAM 2 MG/2 ML VIAL IV PRN; fentaNYL (PF) 50 MCG/ML 2 ML AMP IV PRN
[2019-08-19] MEDS ORDERED: DEXAMETHASONE SOD PHOSPHATE 10 MG/ML 1 ML VIAL IV ONE (08:18)
[2019-08-19] MEDS ORDERED: MIDAZOLAM PF (FBP) 2 MG/2 ML VIAL IV ONE (08:47)
--- NOTE | 2019-08-19 08:51 | P.GSHP ---
History of Present Illness H&P Date: 08/19/19 Chief Complaint: Right upper quadrant pain This is a 69-year-old female referred from Dr. Hernandez. The patient presents today for laparoscopic cholestatic. She's had chronic issues right quadrant pain. Her recent HIDA scan shows abnormal ejection fraction consistent with ch ronic cholecystitis. Past Medical History Past Medical History: COPD, Fibromyalgia, GERD/Reflux, Hyperlipidemia, Hypertension, Osteoarthritis (OA), Sleep Apnea/CPAP/BIPAP Additional Past Medical History / Comment(s): heart skips a beat occ., no CPAP used, IBS, History of Any Multi-Drug Resistant Organisms: None Reported Past Surgical History: Breast Surgery, Tubal Ligation Additional Past Surgical History / Comment(s): lumpectomy left breast Past Anesthesia/Blood Transfusion Reactions: Previous Problems w/ Anesthesia Additional Past Anesthesia/Blood Transfusion Reaction / Comment(s): "i get violent when I come out" Smoking Status: Current every day smoker - Past Family History Father Family Medical History: Myocardial Infarction ([place]) Mother Family Medical History: Cancer Sister(s) Family Medical History: Diabetes Mellitus Medications and Allergies Home Medications Medication Instructions Recorded Confirmed Type Losartan Potassium [Cozaar] 50 mg PO HS 02/21/17 08/19/19 History amLODIPine [Norvasc] 5 mg PO DAILY 02/21/17 08/19/19 History Simvastatin [Zocor] 20 mg PO HS 05/28/17 08/19/19 History ALPRAZolam [Xanax] 0.5 mg PO BID PRN 08/14/19 08/19/19 History FLUoxetine HCL [PROzac] 40 mg PO DAILY 08/14/19 08/19/19 History Lurasidone [Latuda] 20 mg PO HS 08/14/19 08/19/19 History Multivitamins, Thera [Multivitamin 1 tab PO DAILY 08/14/19 08/19/19 History (formulary)] lamoTRIgine [LaMICtal] 200 mg PO HS 08/14/19 08/19/19 History Allergies Allergy/AdvReac Type Severity Reaction Status Date / Time No Known Allergies Allergy Verified 08/14/19 15:16 Surgical - Exam Vital Signs Temp Pulse Resp BP Pulse Ox 97.1 F L 70 16 132/86 96 08/19/19 08:10 08/19/19 08:10 08/19/19 08:10 08/19/19 08:10 08/19/19 08:10 - General well developed, well nourished, no distress - Eyes PERRL - ENT normal pinna - Neck no masses - Respiratory normal expansion - Cardiovascular Rhythm: regular - Abdomen Abdomen: soft, non tender Assessment and Plan Assessment: Right upper quadrant pain Chronic cholecystitis We'll perform laparoscopic cholecystectomy.
[2019-08-19] MEDS ORDERED: GLYCOPYRROLATE 0.2 MG/ML 2 ML VIAL ONE (09:10)
[2019-08-19] MEDS ORDERED: HYDROmorphone (PF) 1 MG/ML ONE (09:10)
[2019-08-19] MEDS ORDERED: ePHEDrine SULFATE/0.9% NACL/PF 50 MG/5 ML SYRINGE IV ONE (09:10)
[2019-08-19] MEDS ORDERED: MIDAZOLAM 2 MG/2 ML VIAL ONE (09:10)
[2019-08-19] MEDS ORDERED: LIDOCAINE 1% INJ 10MG/ML (20 ML MDV) ONE (09:10)
[2019-08-19] MEDS ORDERED: ROCURONIUM BROMIDE 10 MG/ML 10 ML VIAL IV ONE (09:10)
[2019-08-19] MEDS ORDERED: NEOSTIGMINE 1 MG/ML 10 ML VIAL ONE (09:10)
[2019-08-19] MEDS ORDERED: PROPOFOL 10 MG/ML 20 ML VIAL IV ONE (09:10)
[2019-08-19] MEDS ORDERED: SUCCINYLCHOLINE CHLORIDE 100 MG/5 ML SYR IV ONE (09:10)
[2019-08-19] MEDS ORDERED: fentaNYL (PF) 50 MCG/ML 2 ML AMP ONE (09:10)
[2019-08-19] MEDS ORDERED: BUPIVACAINE (PF) 0.25% 30 ML VIAL SQ ONE (09:25)
--- NOTE | 2019-08-19 09:48 | P.OP ---
Date of Procedure: 08/19/19 Preoperative Diagnosis: Biliary dyskinesia Postoperative Diagnosis: Biliary dyskinesia Chronic cholecystitis Procedure(s) Performed: Laparoscopic cholecystectomy Anesthesia: JARETT Surgeon: Isidro Turner Estimated Blood Loss (ml): 5 Pathology: other (Gallbladder) Condition: stable Disposition: PACU Description of Procedure: The patient was placed on the operating table. The patient received a general endotracheal tube anesthesia. The patients abdomen was prepped and draped in the usual sterile fashion. Through an infraumbilical stab incision, the fascia of the anterior abdominal wall was grasped with a pair of Kochers and then the Veress needle was placed in the peritoneal cavity. Position of the Veress needle was confirmed with positive drop test. The abdomen was then insufflated. After adequate insufflation, the 10 mm trocar was placed in the peritoneal cavity. Following this the laparoscope was placed in the peritoneal cavity. The patient was placed in the head-up, right side up position and then a 5 mm trocar was placed in the right lateral and right subcostal position under direct visualization. A 8 mm trocar was placed in the epigastric position. The gallbladder was grasped in the fundus and infundibulum. Traction on the gallbladder was placed in the lateral and the cephalad positions. The triangle of Calot was visualized.. The cystic duct was bluntly dissected until the union of the cystic duct and common bile duct w as seen. A critical view of safety was achieved. The cystic duct was then divided and sealed with the Harmonic scissors. A PDS Endoloop was then placed throughout the cystic duct stump. The cystic artery divided and sealed with the Harmonic scissors. The gallbladder was then removed from the liver bed using Harmonic scissors. The gallbladder was then extracted through the epigastric port site. Operative field was checked for any bleeding spots and Harmonic scissors was used to coagulate the liver bed. The abdomen was irrigated. The trocars were removed. The skin was closed using interrupted 3-0 Vicryl suture. Dermabond dressing were applied. The patient tolerated the procedure well.
[2019-08-19 10:00] VITALS: TEMP 97.5
[2019-08-19] MEDS: HYDROmorphone 1 MG/ML 1 ML SYRINGE IVP ONE ×4 (10:05→10:49)
[2019-08-19] MEDS ORDERED: ONDANSETRON 4 MG/2 ML VIAL IVP ONE (11:06)
[2019-08-19 12:19] VITALS: RESP 18
[2019-08-19 13:12] VITALS: BP 122/64; PULSE 66
== END 2019-08-19 13:42 | disposition home or self-care (01) ==
LOC: OR 07:53
PROVIDERS: ATTEND Surgery
DX: K81.1 Chronic cholecystitis (principal); I10 Essential (primary) hypertension; E78.5 Hyperlipidemia, unspecified; K21.9 Gastro-esophageal reflux disease without esophagitis; J44.9 Chronic obstructive pulmonary disease, unspecified; M79.7 Fibromyalgia; M19.90 Unspecified osteoarthritis, unspecified site; G47.33 Obstructive sleep apnea (adult) (pediatric); F39 Unspecified mood [affective] disorder; K58.9 Irritable bowel syndrome, unspecified; F17.200 Nicotine dependence, unspecified, uncomplicated; Z98.51 Tubal ligation status; Z83.3 Family history of diabetes mellitus; Z82.49 Family history of ischemic heart disease and other diseases of the circulatory system; Z97.2 Presence of dental prosthetic device (complete) (partial); Z79.899 Other long term (current) drug therapy
CPT/HCPCS: 88304; 47562; J2250 ×2; J1644; J1100; J2710; J0690; J2405; J2001; J3010; J1170; J0330; J2704

== ENCOUNTER → 2020-01-14 | Outpatient (CLI) | payer MEDICARE, OTHER ==
[2020-01-14 15:39] VITALS: BP 155/80; PULSE 88; RESP 20; TEMP 98.6
--- NOTE | 2020-01-14 17:36 | P.HPOB ---
History of Present Illness H&P Date: 01/14/20 Chief Complaint: The patient is here for her routine gynecologic exam and ma mmogram. This is a 69-year-old with an LMP of 2005. The patient states she has been experiencing bad hot flashes at night for the past 4 months and now is experiencing some hot flashes during the day as well. The hot flashes can be associated with headaches as well. She has not had these types of hot flashes since her menopausal change about 15 years ago. She believes this may be due to multiple medication changes for her depression during the past 6 months. She states her depression medications have changed about 6 times over the past few months. She denies any postmenopausal bleeding. Review of Systems The patient's weight has been stable over the last year. She denies respiratory, cardiac, or G.I. problems. Past Medical History Past Medical History: COPD, Fibromyalgia, GERD/Reflux, Hyperlipidemia, Hypertension, Osteoarthritis (OA), Sleep Apnea/CPAP/BIPAP Additional Past Medical History / Comment(s): Sleep apnea no CPAP used, IBS. 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 History of Any Multi-Drug Resistant Organisms: None Reported Past Surgical History: Breast Surgery, Joint Replacement, Tubal Ligation Additional Past Surgical History / Comment(s): lumpectomy left breast. Hip replacement surgery 2006. D&C 2007, colonoscopy 2018(2ND). Past Anesthesia/Blood Transfusion Reactions: Previous Problems w/ Anesthesia Additional Past Anesthesia/Blood Transfusion Reaction / Comment(s): "i get violent when I come out" Past Psychological History: Anxiety, Depression Smoking Status: Current every day smoker (2 packs per day which is increased following her 's ) Past Alcohol Use History: None Reported Additional Past Alcohol Use History / Comment(s): smokes 1 1/2 PPD FOR ABOUT 45 YRS Past Drug Use History: None Reported Additional History: She is a since 2019. Her had dementia and chronic health problems. She is retired. - Past Family History Father Family Medical History: Myocardial Infarction ([place]) Mother Family Medical History: Cancer Additional Family Medical History / Comment(s): Cervical cancer. Sister(s) Family Medical History: Diabetes Mellitus Medications and Allergies Home Medications Medication Instructions Recorded Confirmed Type Losartan Potassium [Cozaar] 50 mg PO HS 02/21/17 01/14/20 History amLODIPine [Norvasc] 5 mg PO DAILY 02/21/17 01/14/20 History Simvastatin [Zocor] 20 mg PO HS 05/28/17 01/14/20 History FLUoxetine HCL [PROzac] 40 mg PO DAILY 08/14/19 01/14/20 History lamoTRIgine [LaMICtal] 200 mg PO HS 08/14/19 01/14/20 History Cariprazine HCl [Vraylar] 1.5 mg PO DAILY 01/14/20 01/14/20 History LORazepam [Ativan] 1 mg PO HS 01/14/20 01/14/20 History Allergies Allergy/AdvReac Type Severity Reaction Status Date / Time No Known Allergies Allergy Verified 01/14/20 15:30 Exam Vital Signs Temp Pulse Resp BP Pulse Ox 01/14/20 15:34 98.6 F 88 20 155/80 95 Intake and Output 01/14/20 01/14/20 01/14/20 06:59 14:59 22:59 Other: Weight 80.286 kg Height 5 feet 4 inches, weight 177 pounds, BMI 30.4. This is a well-developed well-nourished white female who is alert and oriented times 3 in no acute distress. HEENT: Within normal limits. NECK: Supple without mass or thyromegaly. CHEST AND LUNGS: Clear to auscultation. HEART: Regular rate and rhythm. BREASTS: Are without mass or discharge. AXILLARY EXAM: Negative for adenopathy. BACK: Negative for CVA tenderness. ABDOMEN: Soft, nontender, without palpable masses. PELVIC EXAM: Normal external genitalia with mild atrophy. Cervix and vagina appear normal of mild atrophy. There is no unusual discharge. There is no evidence of prolapse. The uterus is midposition, nongravid size and nontender. There are no palpable adnexal masses or tenderness. RECTAL EXAM: Rectovaginal exam is negative for mass or tenderness and is negative for occult blood. EXTREMITIES: Nontender. IMPRESSION: 1. 69-year-old menopausal female with normal gynecologic exam. 2. Recent onset of vasomotor symptoms. Since this is very remote from her and a possible change 15 years ago, I do not believe this is gynecologic in nature nor is it related to her menopausal status. PLAN: 1. Pap smear was deferred since she had a normal one on 05/22/2018. 2. Self breast awareness was discussed with the patient. 3. Screening mammogram will be done today. 4. Osteoporosis prevention was discussed. I have stressed the importance of adequate calcium, vitamin D and regular exercise. Recommended amounts of calcium and vitamin D were also discussed. Her last bone density test was normal in 2014. I have recommended that she repeat this in the upcoming year. The order slip was given to the patient for this. 5. She will discuss her hot flashes and night sweats with her PCP and her healthcare provider that treats her depression. I did not feel that they are gynecologic in nature nor are they related to her long time postmenopausal status. Other health conditions should be considered as well as possible side effects from her medications or changes in medications. 6. She was advised to return in one year for her annual well woman exam.
--- NOTE | 2020-01-15 11:14 | MM ---
Reason for exam: screening (asymptomatic). Last mammogram was performed 1 year and 8 months ago. History: Patient is postmenopausal. Benign excisional biopsy of the left breast, 1997. Physical Findings: A clinical breast exam by your physician is recommended on an annual basis and results should be correlated with mammographic findings. MG 3D Screening Mammo W/Cad Bilateral CC and MLO view(s) were taken. Prior study comparison: May 22, 2018, bilateral MG 3d screening mammo w/cad. March 07, 2017, bilateral MG 3d screening mammo w/cad. There are scattered fibroglandular densities. There are benign appearing round calcifications in the right breast. Asymmetric breast tissue left outer breast, stable. There is no discrete abnormality. ASSESSMENT: Benign, BI-RAD 2 RECOMMENDATION: Routine screening mammogram of both breasts in 1 year.
== END ==
LOC: WWCWWP 15:03
PROVIDERS: ATTEND Obstetrics & Gynecology
DX: Z12.31 Encounter for screening mammogram for malignant neoplasm of breast (principal)
CPT/HCPCS: 77063; 77067

== ENCOUNTER 2023-02-14 13:42 | Emergency (ER) | payer MEDICARE, OTHER ==
[2023-02-14 13:53] VITALS: RESP 18; TEMP 98
--- NOTE | 2023-02-14 14:14 | ED ---
General Adult HPI - General Chief complaint: Chest Pain Stated complaint: chest pain Time Seen by Provider: 02/14/23 13:43 Source: patient, EMS, RN notes reviewed, old records reviewed Mode of arrival: EMS Limitations: no limitations - History of Present Illness Initial comments: 72-year-old female presents for evaluation of chest pain. Pain began just prior to arrival. Paramedics were called. The patient had severe chest pain radiating into her upper back. She describes this as dull in nature. She has no prior history of CAD. She states she does have high blood pressure. She states she had similar episode in the past which prompted an admission at outside hospital. She has no chest pain at the time my evaluation. There was nausea without significant vomiting or diaphoresis. She has no chest pain or back pain currently. - Related Data Home Medications Medication Instructions Recorded Confirmed Simvastatin [Zocor] 20 mg PO HS 05/28/17 02/14/23 ALPRAZolam [Xanax] 1 mg PO TID 02/14/23 02/14/23 ARIPiprazole [Abilify] 5 mg PO DAILY 02/14/23 02/14/23 Albuterol Sulfate [Albuterol 1 - 2 puff PO RT-Q4H PRN 02/14/23 02/14/23 Sulfate Hfa] Chlorthalidone 50 mg PO DAILY 02/14/23 02/14/23 Famotidine [Pepcid] 20 mg PO BID 02/14/23 02/14/23 Folic Acid 1 mg PO DAILY 02/14/23 02/14/23 Metoprolol Succinate [Toprol XL] 50 mg PO HS 02/14/23 02/14/23 PARoxetine HCL [Paxil] 40 mg PO DAILY 02/14/23 02/14/23 PARoxetine [Paxil] 10 mg PO DAILY 02/14/23 02/14/23 Sucralfate [Carafate] 1 gm PO AC-BID 02/14/23 02/14/23 Valsartan 320 mg PO HS 02/14/23 02/14/23 busPIRone HCl [Buspar] 10 mg PO TID 02/14/23 02/14/23 predniSONE See Taper PO DAILY 02/14/23 02/14/23 Allergies Allergy/AdvReac Type Severity Reaction Status Date / Time No Known Allergies Allergy Verified 02/14/23 14:47 Review of Systems ROS Statement: Those systems with pertinent positive or pertinent negative responses have been documented in the HPI. ROS Other: All systems not noted in ROS Statement are negative. Past Medical History Past Medical History: COPD, Fibromyalgia, GERD/Reflux, Hyperlipidemia, Hypertension, Osteoarthritis (OA), Sleep Apnea/CPAP/BIPAP Additional Past Medical History / Comment(s): Sleep apnea no CPAP used, IBS. 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 History of Any Multi-Drug Resistant Organisms: None Reported Past Surgical History: Breast Surgery, Joint Replacement, Tubal Ligation Additional Past Surgical History / Comment(s): lumpectomy left breast. Hip replacement surgery 2007. D&C 2008, colonoscopy 2018(2ND). Past Anesthesia/Blood Transfusion Reactions: Previous Problems w/ Anesthesia Additional Past Anesthesia/Blood Transfusion Reaction / Comment(s): "i get violent when I come out" Past Psychological History: Anxiety, Depression Past Alcohol Use History: None Reported Past Drug Use History: None Reported - Past Family History Father Family Medical History: Myocardial Infarction (OR) Mother Family Medical History: Cancer Additional Family Medical History / Comment(s): Cervical cancer. Sister(s) Family Medical History: Diabetes Mellitus General Exam Limitations: no limitations General appearance: alert, in no apparent distress Head exam: Present: atraumatic, normocephalic Eye exam: Present: normal appearance, PERRL ENT exam: Present: normal exam Neck exam: Present: normal inspection. Absent: tenderness, meningismus Respiratory exam: Present: normal lung sounds bilaterally. Absent: respiratory distress, wheezes Cardiovascular Exam: Present: regular rate, normal rhythm GI/Abdominal exam: Present: soft. Absent: distended, tenderness, guarding, rebound Extremities exam: Present: normal inspection, normal capillary refill. Absent: pedal edema, joint swelling Neurological exam: Present: alert, oriented X3, CN II-XII intact. Absent: motor sensory deficit Psychiatric exam: Present: normal affect, normal mood Skin exam: Present: warm, dry, intact. Absent: cyanosis, diaphoretic Course Vital Signs 02/14/23 02/14/23 13:48 14:57 Temperature 98.0 F Pulse Rate 58 L 66 Respiratory 18 18 Rate Blood Pressure 143/63 120/79 O2 Sat by Pulse 99 98 Oximetry EKG Findings - EKG Comments: EKG Findings:: EKG: Sinus rhythm intracranial rate is 63, TN interval 133, QRS d uration 87, QTC 435. No ST segment elevation Medical Decision Making - Medical Decision Making Was pt. sent in by a medical professional or institution ([facility], [employer], urgent care, hospital, or group home...) When possible be specific @ -[No] Did you speak to anyone other than the patient for history (EMS, parent, family, police, friend...)? What history was obtained from this source @ -[No] Did you review nursing and triage notes (agree or disagree)? Why? @ -[I reviewed and agree with nursing and triage notes] Were old charts reviewed (outside hosp., previous admission, EMS record, old EKG, old radiological studies, urgent care reports/EKG's, group home records)? Report findings @ -[No old charts were reviewed] Differential Diagnosis (chest pain, altered mental status, abdominal pain women, abdominal pain men, vaginal bleeding, weakness, fever, dyspnea, syncope, headache, dizziness, GI bleed, back pain, seizure, CVA, palpatations, mental health, musculoskeletal)? @ -Differential Chest Pain: Stable Angina, Unstable Angina, STEMI, NSTEMI Aortic Dissection, Pneumothorax, Musculoskeletal, Esophageal Spasm GERD, Cholecystitis, Pancreatitis, Zoster, this is not meant to be an all-inclusive list. EKG interpreted by me (3pts min.). @ -[As above] X-rays interpreted by me (1pt min.). @ -Chest x-ray negative for acute cardiopulmonary findings CT interpreted by me (1pt min.). @ -CT showing chronic stable findings without aortic dissection or acute pathology U/S interpreted by me (1pt. min.). @ -[None done] What testing was considered but not performed or refused? (CT, X-rays, U/S, labs)? Why? @ -[None] What meds were considered but not given or refused? Why? @ -[None] Did you discuss the management of the patient with other professionals (professionals i.e. [facility], [employer], lab, RT, psych nurse, social science teacher, race car driver, teacher, branch lending officer, onsite case manager)? Give summary @ -[No] Was smoking cessation discussed for >3mins.? @ -[No] Was critical care preformed (if so, how long)? @ -[No] Were there social determinants of health that impacted care today? How? (Homelessness, low income, unemployed, alcoholism, drug addiction, transportation, low edu. Level, literacy, decrease access to med. care, alf, rehab)? @ -[No] Was there de-escalation of care discussed even if they declined (Discuss DNR or withdrawal of care, Hospice)? DNR status @ -[No] What co-morbidities impacted this encounter? (DM, HTN, Smoking, COPD, CAD, Cancer, CVA, ARF, Chemo, Hep., AIDS, mental health diagnosis, sleep apnea, morbid obesity)? @ -Hypertension, COPD Was patient admitted / discharged? Hospital course, mention meds given and route, prescriptions, significant lab abnormalities, going to OR and other pertinent info. @ -72-year-old female presented with an episode of chest pain and back pain which was resolved prior to arrival. EKG is sinus rhythm without ST segment elevation. I did perform laboratory testing as well as chest x-ray and CT imaging. Laboratory testing revealed a mild leukocytosis of 14.7. A positive d-dimer which did prompt CT angiography of the aorta. Patient remained asymptomatic throughout her stay in the emergency department and didn't want to be discharged. She did not want any further testing stating that she's had multiple hospital admissions and evaluations for this same complaint. She stat es she's had at least 6 times in the past year. She states that she follows with cardiology on a regular basis. She is informed that she did not have a specific diagnosis made for the cause of her chest pain and despite this she prefers to be discharged. Undiagnosed new problem with uncertain prognosis? @ -[Chest pain] Drug Therapy requiring intensive monitoring for toxicity (Heparin, Nitro, Insulin, Cardizem)? @ -[No] Were any procedures done? @ -[No] Diagnosis/symptom? @ -[Chest pain] Acute, or Chronic, or Acute on Chronic? @ -[Acute] Uncomplicated (without systemic symptoms) or Complicated (systemic symptoms)? @ -[Complicated] Side effects of treatment? @ -[No] Exacerbation, Progression, or Severe Exacerbation? @ -[No] Poses a threat to life or bodily function? How? (Chest pain, [place], OR, pneumonia, PE, COPD, DKA, ARF, appy, cholecystitis, CVA, Diverticulitis, Homicidal, Suicidal, threat to staff... and all critical care pts) @ -[Yes, cardiac ischemia, arrhythmia, sudden cardiac - Lab Data Result diagrams: 02/14/23 14:13 02/14/23 14:13 Lab Results 02/14/23 02/14/23 02/14/23 Range/Units 14:13 14:13 14:13 WBC 14.7 H (3.8-10.6) k/uL RBC 4.15 (3.80-5.40) m/uL Hgb 12.4 (11.4-16.0) gm/dL Hct 39.7 (34.0-46.0) % MCV 95.6 (80.0-100.0) fL MCH 30.0 (25.0-35.0) pg MCHC 31.3 (31.0-37.0) g/dL RDW 14.4 (11.5-15.5) % Plt Count 403 (150-450) k/uL MPV 8.1 Neutrophils % 54 % Lymphocytes % 36 % Monocytes % 7 % Eosinophils % 1 % Basophils % 0 % Neutrophils # 7.9 H (1.3-7.7) k/uL Lymphocytes # 5.3 H (1.0-4.8) k/uL Monocytes # 1.1 H (0-1.0) k/uL Eosinophils # 0.1 (0-0.7) k/uL Basophils # 0.0 (0-0.2) k/uL Manual Slide Review Performed PT 9.5 (9.0-12.0) sec INR 0.9 (<1.2) APTT 20.4 L (22.0-30.0) sec D-Dimer 0.75 H (<0.60) mg/L FEU Sodium 139 (137-145) mmol/L Potassium 4.4 (3.5-5.1) mmol/L Chloride 102 (98-107) mmol/L Carbon Dioxide 33 H (22-30) mmol/L Anion Gap 4 mmol/L BUN 19 H (7-17) mg/dL Creatinine 0.95 (0.52-1.04) mg/dL Est GFR (CKD-EPI)AfAm 71 (>60 ml/min/1.73 sqM) Est GFR (CKD-EPI)NonAf 61 (>60 ml/min/1.73 sqM) Glucose 95 (74-99) mg/dL Calcium 8.7 (8.4-10.2) mg/dL Magnesium 2.1 (1.6-2.3) mg/dL Total Bilirubin 0.3 (0.2-1.3) mg/dL AST 25 (14-36) U/L ALT 37 H (4-34) U/L Alkaline Phosphatase 95 (38-126) U/L Troponin I (0.000-0.034) ng/mL Total Protein 6.6 (6.3-8.2) g/dL Albumin 3.7 (3.5-5.0) g/dL Lipase 262 (23-300) U/L 02/14/23 Range/Units 14:13 WBC (3.8-10.6) k/uL RBC (3.80-5.40) m/uL Hgb (11.4-16.0) gm/dL Hct (34.0-46.0) % MCV (80.0-100.0) fL MCH (25.0-35.0) pg MCHC (31.0-37.0) g/dL RDW (11.5-15.5) % Plt Count (150-450) k/uL MPV Neutrophils % % Lymphocytes % % Monocytes % % Eosinophils % % Basophils % % Neutrophils # (1.3-7.7) k/uL Lymphocytes # (1.0-4.8) k/uL Monocytes # (0-1.0) k/uL Eosinophils # (0-0.7) k/uL Basophils # (0-0.2) k/uL Manual Slide Review PT (9.0-12.0) sec INR (<1.2) APTT (22.0-30.0) sec D-Dimer (<0.60) mg/L FEU Sodium (137-145) mmol/L Potassium (3.5-5.1) mmol/L Chloride (98-107) mmol/L Carbon Dioxide (22-30) mmol/L Anion Gap mmol/L BUN (7-17) mg/dL Creatinine (0.52-1.04) mg/dL Est GFR (CKD-EPI)AfAm (>60 ml/min/1.73 sqM) Est GFR (CKD-EPI)NonAf (>60 ml/min/1.73 sqM) Glucose (74-99) mg/dL Calcium (8.4-10.2) mg/dL Magnesium (1.6-2.3) mg/dL Total Bilirubin (0.2-1.3) mg/dL AST (14-36) U/L ALT (4-34) U/L Alkaline Phosphatase (38-126) U/L Troponin I <0.012 (0.000-0.034) ng/mL Total Protein (6.3-8.2) g/dL Albumin (3.5-5.0) g/dL Lipase (23-300) U/L Disposition Clinical Impression: Chest pain Disposition: HOME SELF-CARE Condition: Fair Instructions (If sedation given, give patient instructions): Chest Pain (ED) Is patient prescribed a controlled substance at d/c from ED?: No Referrals: Robin Jose MD [Primary Care Provider] - 1-2 days Time of Disposition: 17:01
[2023-02-14 14:21] LABS: Basophils % (A) 0 %; Eosinophils # (A) 0.1 k/uL (0-0.7); Eosinophils % (A) 1 %; HCT 39.7 % (34.0-46.0); HGB 12.4 gm/dL (11.4-16.0); Lymphocytes # (A) 5.3 k/uL (1.0-4.8); Lymphocytes % (A) 36 %; MCHC 31.3 g/dL (31.0-37.0); MCV 95.6 fL (80.0-100.0); Mean Platelet Volume 8.1; Monocytes # (A) 1.1 k/uL (0-1.0); Monocytes % (A) 7 %; Neutrophils # (A) 7.9 k/uL (1.3-7.7); Neutrophils % (A) 54 %; Platelet Count 403 k/uL (150-450); RBC 4.15 m/uL (3.80-5.40); RDW 14.4 % (11.5-15.5); WBC 14.7 k/uL (3.8-10.6)
--- NOTE | 2023-02-14 14:35 | XR ---
EXAMINATION TYPE: XR chest 2V DATE OF EXAM: 02/14/2023 2:30 PM COMPARISON: Chest radiographs from 02/21/2017 TECHNIQUE: XR chest 2V Frontal and lateral views of the chest. CLINICAL INDICATION:Female, 72 years old with history of Chest Pain; FINDINGS: Lungs/Pleura: There is flattening of the diaphragm with increased lucency of the lungs. No evidence o f pneumothorax, pleural effusion or focal consolidation. Pulmonary vascularity: Unremarkable. Heart/mediastinum: Cardiomediastinal silhouette is unremarkable. Musculoskeletal: No acute osseous pathology. IMPRESSION: 1. No acute cardiopulmonary disease process. 2. COPD changes.
[2023-02-14 14:41] LABS: INR 0.9 (<1.2); Prothrombin Time 9.5 sec (9.0-12.0)
[2023-02-14 14:44] LABS: Albumin 3.7 g/dL (3.5-5.0); Calcium 8.7 mg/dL (8.4-10.2); Magnesium 2.1 mg/dL (1.6-2.3); Potassium 4.4 mmol/L (3.5-5.1); Total Bilirubin 0.3 mg/dL (0.2-1.3); Total Protein 6.6 g/dL (6.3-8.2)
[2023-02-14 14:58] VITALS: BP 120/79; PULSE 66
[2023-02-14 14:58] LABS: Partial Thromboplastin Time 20.4 sec (22.0-30.0)
--- NOTE | 2023-02-14 16:43 | CT ---
EXAMINATION TYPE: CT angio thor/abd pel aorta CT DLP: 2070.8 mGycm, Automated exposure control for dose reduction was used. DATE OF EXAM: 02/14/2023 4:08 PM COMPARISON: CT abdomen 03/16/2018. CLINICAL INDICATION:Female, 72 years old with history of CP/Back pain; PHH, chest and back pain TECHNIQUE: Dissection protocol: Multiple axial CT images of the chest, abdomen, and pelvis were obtai susanne prior and to the administration of IV contrast. 3-D reformats and maximum intensity projection fo rmat were performed on a separate workstation. Contrast used:80 mL of Isovue 370 with IV Contrast, Oral contrast used: without Oral Contrast FINDINGS: ARTERIAL VASCULATURE: The aorta is normal in course and caliber. There is no evidence of acute aortic dissection. Stable focal outpouching suggestive of a penetrating atheromatous ulcer redemonstrated i nvolving the distal abdominal aorta (series 501, image 179). Great arch vessels patent and normal in course and caliber. Mild atherosclerotic changes of the thoracic aorta. Moderate atherosclerotic calc ification of the abdominal aorta and its branches. Moderate stenosis at the origin of the SMA. 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 The single bila teral renal arteries are patent. The DOM is patent. The bilateral common and arteries are patent. Sev ere stenosis at the origin of the right common hepatic artery secondary to calcified plaque. Lungs/pleura: No pleural effusion or pneumothorax. Moderate centrilobular emphysematous changes. Con solidative density along the posterior aspect of the left upper lobe abutting the major fissure measu ring 1.0 x 2.0 cm (series 506, image 45). Heart: Within normal limits. No pericardial effusion. Mild coronary artery calcifications. Mediastinum: No gross evidence of adenopathy. Lower Neck: No significant findings. Abdomen: Liver: Unremarkable. Gallbladder and Bile ducts: Unremarkable. Pancreas: Unremarkable. Spleen: Unremarkable. Adrenal glands: Unremarkable. Kidneys and Ureters: Unremarkable. No hydronephrosis. Stomach and Bowel: Small hiatal hernia. Distal colonic diverticulosis without evidence for acute div erticulitis. No evidence of bowel obstruction. Peritoneum/retroperitoneum: No evidence of pneumoperitoneum, free fluid, or adenopathy. Similar stra nding density around the origin of the celiac access dating back to 03/16/2018. Bladder: Unremarkable. Reproductive: Unremarkable. Abdominal wall/soft tissues: Small fat filled umbilical hernia. Musculoskeletal: The osseous structures appear intact. Mild to moderate bilateral hip osteoarthritic changes. Mild multilevel degenerative disc disease most pronounced involving the lumbar spine. IMPRESSION: 1. No evidence for acute aortic dissection. 2. 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 3. 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 Clinical correlation is recommended. Additionally there is moderate stenosis at the origin of the SMA again demonstrated. Additionally the re is a 1 cm aneurysm emanating from the proximal SMA. 4. Moderate COPD changes. 5. Consolidative opacity demonstrated within the posterior aspect of the left upper lobe abutting the major fissure which may represent atelectasis. Continued follow-up is recommended. 6. Colonic diverticulosis without evidence for acute diverticulitis. 7. Small hiatal hernia.
== END 2023-02-14 17:50 | disposition home or self-care (01) ==
LOC: EC 13:42
DX: R07.9 Chest pain, unspecified (principal); E78.5 Hyperlipidemia, unspecified; I10 Essential (primary) hypertension; J44.9 Chronic obstructive pulmonary disease, unspecified; F41.9 Anxiety disorder, unspecified; F32.A Depression, unspecified; K21.9 Gastro-esophageal reflux disease without esophagitis; Z98.51 Tubal ligation status; Z79.899 Other long term (current) drug therapy; Z96.649 Presence of unspecified artificial hip joint
CPT/HCPCS: 36415; 93005; 85379; 80053; 83690; 83735; 84484; 85025; 85610; 85730; 71046; 71275; 74174; 99285; Q9967

== ENCOUNTER → 2023-05-08 | Outpatient (CLI) | payer MEDICARE, OTHER ==
[2023-05-08 14:56] LABS: African American GFR (CKD) 62 (>60 ml/min/1.73 sqM); Blood Urea Nitrogen 21 mg/dL (7-17); Non-African American GFR(CKD) 54 (>60 ml/min/1.73 sqM)
--- NOTE | 2023-05-08 20:16 | CT ---
EXAMINATION TYPE: CT chest wo/w con CT DLP: Combined DLP of 2865.7 mGycm, Automated exposure control for dose reduction was used. DATE OF EXAM: 05/08/2023 3:37 PM COMPARISON: CTA thoracoabdominal pelvis aorta 02/14/2023 CLINICAL INDICATION:Female, 72 years old with history of I10.401 R60.0 Z91.89; PHH, Epigastric pain, acid reflux, hx of GERD and hiatal hernia. TECHNIQUE: Multiple axial images were obtained through the chest before and after the administration of 50 cc of Isovue 300. . Coronal and sagittal reformats reviewed. FINDINGS: LUNGS/ PLEURA: No pleural effusion, pneumothorax, focal consolidation. Mild centrilobular emphysemato us changes. No suspicious pulmonary nodule or mass. AIRWAY: Patent and unremarkable.. HEART: Size within normal limits. No pericardial effusion. Mild coronary tear calcifications. MEDIASTINUM: No evidence of adenopathy. VASCULATURE: No aortic aneurysm. Mild atherosclerotic calcification of the aorta. MUSCULOSKELETAL: No acute osseous abnormalities SOFT TISSUES/LYMPH NODES: Unremarkable. LOWER NECK: No significant findings. UPPER ABDOMEN: Please refer to dedicated CT abdomen of the same day for findings. IMPRESSION: 1. No acute thoracic process. 2. Mild COPD changes.
--- NOTE | 2023-05-09 11:29 | CT ---
EXAMINATION TYPE: CT abdomen w con DATE OF EXAM: 05/08/2023 COMPARISON: None INDICATION: Epigastric pain, acid reflux, hx of GERD and hiatal hernia. DLP: Combined DLP of 2865.7 mGycm, Automated exposure control for dose reduction was used. CONTRAST: 50 ml mL of Isovue 300. Study performed with Oral Contrast TECHNIQUE: Axial images were obtained from above the diaphragm to the pubic rami in the axial plane a t 5 mm thick sections. Reconstructed images are reviewed on the computer in the coronal plane. FINDINGS: Limited CT sections are obtained the lung bases. The lung bases are clear. Small hiatal hernia may be present. No reflux is identified during the exam. CT ABDOMEN: Liver: Normal Spleen: Normal Pancreas: Normal Adrenal glands: The adrenal glands are normal. Gallbladder: Not identified. Kidneys: No masses are evident. No hydronephrosis is present. No cysts are present. No renal stone s are identified. No hydroureter is evident within the field of view. Aorta: Vascular calcification is within the aorta. Inferior vena cava: Normal. Loops of bowel within the abdomen and pelvis are normal. Note is made of partially visualized sigmoi d colon diverticulosis. No diverticulitis within the [id number] is evident. There are loops of b owel which are incompletely distended or lack oral contrast limiting their evaluation. Appendix: Normal as visualized. IMPRESSIONS: 1. No suspicious acute changes CT abdomen. 2. Small hiatal hernia. Reflux is not identified during the exam.
== END | disposition home or self-care (01) ==
LOC: RADCTMAIN 13:56
PROVIDERS: ATTEND Family Medicine
DX: J44.9 Chronic obstructive pulmonary disease, unspecified (principal); R60.0 Localized edema; R91.1 Solitary pulmonary nodule; R10.9 Unspecified abdominal pain; Z91.89 Other specified personal risk factors, not elsewhere classified
CPT/HCPCS: 82565; 84520; 71270; 74160; 36415; Q9967

== ENCOUNTER → 2023-08-01 | Outpatient (CLI) | payer MEDICARE, OTHER ==
[2023-08-01 14:05] VITALS: BP 122/79; PULSE 79; RESP 18; TEMP 98.6
--- NOTE | 2023-08-01 15:15 | P.HPOB ---
History of Present Illness H&P Date: 08/01/23 Chief Complaint: The patient is here for her routine gynecologic exam and ma mmogram. This is a 73-year-old 013 with an LMP of 2005. The patient is without gynecologic complaints and denies any postmenopausal bleeding. She states she has had multiple medical issues over the past 1-2 years. She attributes many of these problems including weight gain, water retention, and heart issues to the Covid vaccination since she states many of these issues started after receiving the Covid vaccination. Review of Systems She is getting about 69 pounds over the past 3 years. Respiratory: She does get short of breath on exertion. She denies current cardiac or GI problems. Past Medical History Past Medical History: COPD, Fibromyalgia, GERD/Reflux, Hyperlipidemia, Hypertension, Osteoarthritis (OA), Sleep Apnea/CPAP/BIPAP, Thyroid Disorder Additional Past Medical History / Comment(s): Sleep apnea no CPAP used, IBS. Possible CHF however different doctors differ on this diagnosis. 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 History of Any Multi-Drug Resistant Organisms: None Reported Past Surgical History: Breast Surgery, Joint Replacement, Tubal Ligation Additional Past Surgical History / Comment(s): lumpectomy left breast. Hip replacement surgery 2006. D&C 2008, colonoscopy 2018(2ND). Past Anesthesia/Blood Transfusion Reactions: Previous Problems w/ Anesthesia Additional Past Anesthesia/Blood Transfusion Reaction / Comment(s): "i get v iolent when I come out" Past Psychological History: Anxiety, Depression (She is currently being treated for depression. Her PHQ 9 score is 21. She denies any thoughts of hurting herself.) Smoking Status: Former smoker Past Alcohol Use History: None Reported Additional Past Alcohol Use History / Comment(s): smokes 1 1/2 PPD FOR ABOUT 45 YRS . Quit smoking 2020. Past Drug Use History: Marijuana (Occasional use, not daily.) Additional History: She is a since 2019. She is retired. - Past Family History Father Family Medical History: Myocardial Infarction ([place]) Mother Family Medical History: Cancer Additional Family Medical History / Comment(s): Cervical cancer. Sister(s) Family Medical History: Diabetes Mellitus Medications and Allergies Home Medications Medication Instructions Recorded Confirmed Type Simvastatin [Zocor] 20 mg PO HS 05/28/17 08/01/23 History ALPRAZolam [Xanax] 1 mg PO TID 02/14/23 08/01/23 History ARIPiprazole [Abilify] 5 mg PO DAILY 02/14/23 08/01/23 History Albuterol Sulfate [Albuterol 1 - 2 puff PO RT-Q4H PRN 02/14/23 08/01/23 History Sulfate Hfa] Chlorthalidone 50 mg PO DAILY 02/14/23 08/01/23 History Famotidine [Pepcid] 20 mg PO BID 02/14/23 08/01/23 History Folic Acid 1 mg PO DAILY 02/14/23 08/01/23 History Metoprolol Succinate [Toprol XL] 50 mg PO HS 02/14/23 08/01/23 History PARoxetine HCL [Paxil] 40 mg PO DAILY 02/14/23 08/01/23 History PARoxetine [Paxil] 10 mg PO DAILY 02/14/23 08/01/23 History Sucralfate [Carafate] 1 gm PO AC-BID 02/14/23 08/01/23 History Valsartan 320 mg PO HS 02/14/23 08/01/23 History predniSONE See Taper PO DAILY 02/14/23 08/01/23 History Allergies Allergy/AdvReac Type Severity Reaction Status Date / Time No Known Allergies Allergy Verified 08/01/23 13:56 Exam Vital Signs Temp Pulse Resp BP Pulse Ox 08/01/23 13:58 98.6 F 79 18 122/79 99 Intake and Output 07/31/23 08/01/23 08/01/23 22:59 06:59 14:59 Other: Weight 111.584 kg Height 5 feet 4 inches, weight 246 pounds, BMI 42.2. This is a well-developed well-nourished obese white female who is alert and oriented times 3 in no acute distress. HEENT: Within normal limits. NECK: Supple without mass or thyromegaly. CHEST AND LUNGS: Clear to auscultation. HEART: Regular rate and rhythm. BREASTS: Are without mass or discharge. AXILLARY EXAM: Negative for adenopathy. BACK: Negative for CVA tenderness. ABDOMEN: Soft, obese, nontender, without palpable masses. PELVIC EXAM: Normal external genitalia with mild atrophy. Cervix and vagina appear normal mild atrophy. There is no unusual discharge. There is no evidence of prolapse. The uterus is midposition, nongravid size and nontender. There are no palpable adnexal masses or tenderness. Bimanual examination is somewhat limited secondary to her size. RECTAL EXAM: Rectovaginal exam is negative for mass or tenderness and is negative for occult blood. EXTREMITIES: Nontender. IMPRESSION: 1. 73-year-old menopausal female with normal gynecologic exam 2. Multiple medical problems 3. Obesity. 4. Depression which seems not well controlled with her current medications. She denies suicidal thoughts or thoughts of hurting herself. PLAN: 1. Pap smear was performed. She had negative Pap smears on 10/20/2015 and 05/22/2018. If today's Pap smear is negative, we will plan on discontinuing the Pap smears. 2. Self breast awareness was discussed with the patient. We have also discussed symptoms associated with inflammatory breast cancer. 3. Screening mammogram will be done today. 4. Bone density test was last done in 2014 and was normal. I recommended repeating the bone density test and the order slip was given to the patient for this. 5. Her PHQ 9 score is 21 which seems to indicate her depression is not well controlled despite her treatment for depression. I recommended that she further discuss her depression symptoms with her PCP. If her depression is not improving, she understands that a psychiatrist may be worthwhile to see for her depression. She denies any suicidal thoughts or thoughts of hurting herself. She was advised to go to the emergency room if she does have such thoughts. 6. Weight control was discussed with the patient. I stressed the importance of good nutrition, regular meals, adequate fiber and regular exercise as tolerated. 7. She was advised to return in one year for her annual well woman exam.
--- NOTE | 2023-08-03 09:30 | MM ---
Reason for Exam: Screening (asymptomatic). Last mammogram was performed 3 year(s) and 6 month(s) ago. Patient History: Menarche at age 16. First Full-Term at age 20. Postmenopausal. Estrogen and Progesterone for 1 year from age 52 until age 53. 1998, Benign Excisional Biopsy on the left side. Risk Values: Tiana 5 year model risk: 1.4%. NCI Lifetime model risk: 3.8%. Prior Study Comparison: 03/07/2017 Bilateral Screening Mammogram, [facility]. 05/22/2018 Bilateral Screening Mammogram, [facility]. 01/14/2020 Bilateral Screening Mammogram, [facility]. Tissue Density: There are scattered fibroglandular densities. Findings: Analyzed By CAD. There is no suspicious group of microcalcifications or new suspicious mass in either breast. Overall Assessment: Negative, BI-RAD 1 Management: Screening Mammogram of both breasts in 1 year. . Patient should continue monthly self-breast exams. A clinical breast exam by your physician is recommended on an annual basis. This exam should not preclude additional follow-up of suspicious palpable abnormalities. Note on Tiana scores and lifetime risk: 1. A Tiana score greater than 3% is considered moderate risk. If this is the case, consider specialist referral to assess eligibility for a risk reducing agent. 2. If overall lifetime risk for the development of breast cancer is 20% or higher, the patient may qualify for future screening with alternating mammogram and breast MRI. Electronically signed and approved by: Iker Pérez M.D. Radiologis
== END ==
LOC: WWCWWP 13:48
PROVIDERS: ATTEND Obstetrics & Gynecology
DX: Z01.419 Encounter for gynecological examination (general) (routine) without abnormal findings (principal); E66.9 Obesity, unspecified; E78.5 Hyperlipidemia, unspecified; F32.A Depression, unspecified; G47.30 Sleep apnea, unspecified; I10 Essential (primary) hypertension; J44.9 Chronic obstructive pulmonary disease, unspecified; K21.9 Gastro-esophageal reflux disease without esophagitis; M19.90 Unspecified osteoarthritis, unspecified site; M79.7 Fibromyalgia; E07.9 Disorder of thyroid, unspecified; K58.9 Irritable bowel syndrome, unspecified; Z87.891 Personal history of nicotine dependence; Z12.31 Encounter for screening mammogram for malignant neoplasm of breast; Z71.82 Exercise counseling; Z68.41 Body mass index [BMI] 40.0-44.9, adult; Z79.899 Other long term (current) drug therapy; Z79.51 Long term (current) use of inhaled steroids
CPT/HCPCS: 77063; 77067

== ENCOUNTER 2023-09-11 07:48 | Day surgery (SDC) | payer MEDICARE, OTHER ==
[~2023-09-11 07:48] MED LIST changes: -DEXAMETHASONE SOD PHOSPHATE 10 MG/ML 1 ML VIAL IV ONE; -HEPARIN SODIUM,PORCINE 5,000 UNIT/ML 1 ML VIAL SQ ONE; -LACTATED RINGERS 1,000 ML IV SCH; -LIDOCAINE 1% 20 ML VIAL (10MG/ML) FOR IV START INTRADERMA PRN; -MIDAZOLAM 2 MG/2 ML VIAL IV PRN; +SODIUM CHLORIDE 0.9% 1,000 ML IV SCH; -fentaNYL (PF) 50 MCG/ML 2 ML AMP IV PRN
[2023-09-11 08:22] VITALS: BP 146/65; PULSE 80; RESP 18; TEMP 97.6
--- NOTE | 2023-09-11 10:35 | P.EPPROC ---
- EP Procedure Note Electrophysiology Procedure Note: Diagnosis Recurrent presyncope and dizzy spells History of hypertension on multiple medications including amlodipine 2.5 g by mouth daily, valsartan 320 mg in the evening Spironolactone 25 mg in the morning, metoprolol succinate 50 mg daily Twelve-lead EKG Sinus mechanism normal CO narrow QRS normal ST segments Tilt table test for protocol Baseline blood pressure 144/64 mmHg, baseline 167 beats a minute Patient was tilted upright at an angle of 70 per protocol Heart rate and blood pressure remained within the normal range Blood pressures were normal based on [employer] data There was no evidence for dysautonomia No evidence for neurocardiogenic syncope When she was laid supine her blood pressure was in the 130s/60s Heart rate was in the 60s Impression Normal 12-lead EKG and Reasonably well controlled blood pressure on current medications
== END 2023-09-11 10:26 | disposition home or self-care (01) ==
LOC: CATHEP 07:48
PROVIDERS: ATTEND Internal Medicine Clinical Cardiac Electrophysiology
DX: R55 Syncope and collapse (principal); I10 Essential (primary) hypertension; J44.9 Chronic obstructive pulmonary disease, unspecified; E78.5 Hyperlipidemia, unspecified; I25.10 Atherosclerotic heart disease of native coronary artery without angina pectoris; Z82.49 Family history of ischemic heart disease and other diseases of the circulatory system; F17.210 Nicotine dependence, cigarettes, uncomplicated; Z79.82 Long term (current) use of aspirin; Z79.899 Other long term (current) drug therapy
CPT/HCPCS: 93660

== ENCOUNTER → 2024-01-26 | Outpatient (CLI) | payer MEDICARE, OTHER ==
[2024-01-26 15:26] LABS: ABG Base Excess 2.9 mmol/L; ABG HCO3 27 mmol/L (21-25); ABG PCO2 39 mmHg (35-45); ABG PH 7.45 (7.35-7.45); ABG PO2 67 mmHg (83-108); ABG TCO2 28 mmol/L (19-24); Allen Test Performed? Yes
[2024-01-27 04:46] LABS: ALT 19 U/L (8-44); AST 24 U/L (13-35); Albumin/Globulin Ratio 1.43 Ratio (1.60-3.17); Alkaline Phosphatase 107 U/L (41-126); BUN/Creat Ratio 18.94 Ratio (12.00-20.00); Blood Urea Nitrogen 30.3 mg/dL (9.0-27.0); Calcium 9.3 mg/dL (8.7-10.3); Carbon Dioxide 26.1 mmol/L (21.6-31.8); Chloride 105 mmol/L (96-109); Creatine Kinase 173 U/L (26-186); Globulin 2.8 g/dL (1.6-3.3); Glucose 99 mg/dL (70-110); Potassium 3.9 mmol/L (3.5-5.5); Rheumatoid Factor, Qnt <15 IU/mL (0-15); Sodium 145 mmol/L (135-145); T4, Free (Free Thyroxine) 1.16 ng/dL (0.80-1.80); Total Bilirubin 0.2 mg/dL (0.3-1.2); Total Protein 6.8 g/dL (6.2-8.2)
[2024-01-27 05:01] LABS: Basophils # (A) 0.04 X 10*3/uL (0.00-0.10); Basophils % (A) 0.6 %; Eosinophils # (A) 0.23 X 10*3/uL (0.04-0.35); Eosinophils % (A) 3.7 %; HCT 38.1 % (37.2-46.3); HGB 11.4 g/dL (12.0-15.0); Lymphocytes # (A) 1.96 X 10*3/uL (0.90-5.00); Lymphocytes % (A) 31.2 %; MCH 29.2 pg (27.0-32.0); MCHC 29.9 g/dL (32.0-37.0); MCV 97.7 FL (80.0-97.0); Mean Platelet Volume 11.8 FL (9.5-12.2); Monocytes # (A) 0.56 X 10*3/uL (0.20-1.00); Monocytes % (A) 8.9 %; NRBC Per 100 WBC 0 X 10*3/uL (0.00-0.01); Neutrophils # (A) 3.49 X 10*3/uL (1.80-7.70); Neutrophils % (A) 55.4 %; Platelet Count 314 X 10*3/uL (140-440); RDW 14.8 % (11.5-14.5); WBC 6.29 X 10*3/uL (4.50-10.00)
[2024-01-27 05:24] LABS: Erythrocyte Sedimentation Rate 54 mm/Hr (0-30)
== END | disposition home or self-care (01) ==
LOC: LABWHC1 14:53
PROVIDERS: ATTEND Internal Medicine Critical Care Medicine
DX: E66.2 Morbid (severe) obesity with alveolar hypoventilation (principal)
CPT/HCPCS: 36415; 36600; 80053; 82550; 82805; 84439; 84443; 85025; 85652; 86038; 86140; 86431

== ENCOUNTER → 2024-04-26 | Outpatient (CLI) | payer MEDICARE, OTHER ==
--- NOTE | 2024-04-26 19:43 | CA ---
Transthoracic Echo Report Name: Africa Stevens Age: 73 Gender: F : 1950 Exam Date: 04/26/2024 16:49 Exam Location: [facility] Ht (in): 64 Wt (lb): 213 Ordering Physician: Richardson Rodriguez MD ([id number]) Attending/Referring Phys: Richardson Rodriguez MD ([id number]) Internal Review And Audit Compliance Pilar Smith RDCS Procedure CPT: Indications: Z01.818 ENCOUNTER FOR OTHER PREPROCEDURAL EXAMINAT Cardiac Hx: Pt. sittimg upright in wheelchair during Echocardiogram. Technical Quality: Technically difficult study Contrast 1: Total Dose (mL): Contrast 2: Total Dose (mL): MEASUREMENTS (Male / Female) Normal Values 2D ECHO LV Diastolic Diameter PLAX 3.4 cm 4.2 - 5.9 / 3.9 - 5.3 cm LV Systolic Diameter PLAX 2.6 cm IVS Diastolic Thickness 1.1 cm 0.6 - 1.0 / 0.6 - 0.9 cm LVPW Diastolic Thickness 1.1 cm 0.6 - 1.0 / 0.6 - 0.9 cm LV Relative Wall Thickness 0.6 RV Internal Dim ED PLAX 2.2 cm LV Diastolic Volume MOD 4C 37.2 cm??? LV Systolic Volume MOD 4C 17.2 cm??? LV Ejection Fraction MOD 4C 53.9 % LV Diastolic Length 4C 5.7 cm LV Systolic Length 4C 5.5 cm M-MODE Aortic Root Diameter MM 3.1 cm LA Systolic Diameter MM 3.4 cm LA Ao Ratio MM 1.1 AV Cusp Separation MM 2.1 cm DOPPLER Mitral E Point Velocity 69.1 cm/s Mitral A Point Velocity 103.1 cm/s Mitral E to A Ratio 0.7 MV Deceleration Time 258.4 ms TR Peak Velocity 294.8 cm/s TR Peak Gradient 34.8 mmHg Right Ventricular Systolic Press 39.8 mmHg FINDINGS Left Ventricle Left ventricular ejection fraction is estimated at 55-60 %. Mildly increased septal wall thickness. Mildly increased posterior wall thickness. Left ventricular cavity size normal. No obvious regional wall motion abnormalities. Right Ventricle Normal right ventricular size and function. Mild pulmonary hypertension. Right Atrium Normal right atrial size. Left Atrium Normal left atrial size. Mitral Valve Structurally normal mitral valve. Mild mitral regurgitation. Aortic Valve Trileaflet aortic valve. No aortic valve stenosis or regurgitation. Tricuspid Valve Structurally normal tricuspid valve. Mild tricuspid regurgitation. Pulmonic Valve Structurally normal pulmonic valve. Trace pulmonic regurgitation. No pulmonic stenosis. Pericardium No pericardial or pleural effusion. Aorta Normal size aortic root and proximal ascending aorta. CONCLUSIONS Left ventricular ejection fraction is estimated at 55-60 %. No obvious regional wall motion abnormalities. No significant valvular dysfunction No significant chamber size abnormality Previewed by: Dr Van Lemos (Electronically Signed) Final Date: 26 April 2024 19:42
== END | disposition home or self-care (01) ==
LOC: RADECHMAIN 04-25 17:36
PROVIDERS: ATTEND Internal Medicine Clinical Cardiac Electrophysiology
DX: Z01.818 Encounter for other preprocedural examination (principal); R06.02 Shortness of breath
CPT/HCPCS: 93306

== ENCOUNTER 2024-05-03 05:43 | Day surgery (SDC) | payer MEDICARE, OTHER ==
[2024-04-30 10:44] VITALS: BMI 36.8
[2024-05-03] MEDS: LACTATED RINGERS 1,000 ML IV SCH (05:58)
[2024-05-03] MEDS ORDERED: TRANEXAMIC 1,000 MG/100ML-NACL 1,000 MG in SALINE 1 100ML.BAG IV PRN (06:00)
[2024-05-03] MEDS ORDERED: TRANEXAMIC 1,000 MG/100ML-NACL 1,000 MG in SALINE 1 100ML.BAG IVPB PRN (06:00)
[2024-05-03] MEDS ORDERED: MIDAZOLAM 2 MG/2 ML VIAL IV PRN (07:00)
[2024-05-03] MEDS ORDERED: HYDROmorphone 0.5 MG/0.5 ML SYRINGE IVP PRN ×3 (07:00→09:59)
[2024-05-03] MEDS: MIDAZOLAM 2 MG/2 ML VIAL IVP ONE (07:00)
[2024-05-03] MEDS: fentaNYL (PF) 50 MCG/ML 2 ML AMP IVP ONE (07:00)
[2024-05-03] MEDS: FAMOTIDINE 20 MG/2 ML VIAL IVP PRN (07:15)
[2024-05-03] MEDS: KETOROLAC 15 MG/ML 1 ML VIAL IVP PRN (07:15)
[2024-05-03] MEDS: DEXAMETHASONE SOD PHOSPHATE 10 MG/ML 1 ML VIAL IV PRN (07:16)
[2024-05-03] MEDS: ONDANSETRON 4 MG/2 ML VIAL IVP PRN (07:16)
[2024-05-03] MEDS: DOCUSATE 100 MG CAP PO PRN (07:17)
[2024-05-03] MEDS: ACETAMINOPHEN TAB 500 MG TAB PO PRN (07:17)
[2024-05-03] MEDS: oxyCODONE ER 10 MG TAB.ER.12H PO PRN (07:17)
--- NOTE | 2024-05-03 07:26 | P.ANPRN ---
Procedure Note - Anesthesia - Nerve Block Performed Left Omid Single Time Out Performed: Yes Date of Procedure: 05/03/24 Procedure Start Time: 06:59 Procedure Stop Time: 07:03 Location of Patient: PreOp Indication: Acute Post-Operative Pain, Requested by Surgeon Specifically requested for management of pain by DrYue: Ricky Beth Sedation Type: Sedate with meaningful contact maintained Preparation: Sterile Prep, Sterile Dressing Catheter: None Needle Types: Facet Needle Gauge: 20 Ultrasound used to visualize needle placement: Yes Ultrasound used to observe medication spread: Yes Injectate: 0.5% Ropivacaine (see comment for volume) (30 ml + decadron 4 mg) Blood Aspirated: No Pain Paresthesia on Injection Noted: No Resistance on Injection: Normal Image Stored and Saved: Yes Events: Uneventful and Well Tolerated
[2024-05-03] MEDS ORDERED: fentaNYL (PF) 50 MCG/ML 2 ML AMP ONE (07:32)
[2024-05-03] MEDS ORDERED: KETAMINE HCL IN 0.9 % NACL 50 MG/5 ML SYRINGE ONE (07:32)
[2024-05-03] MEDS ORDERED: PROPOFOL 10 MG/ML 20 ML VIAL IV ONE (07:32)
[2024-05-03] MEDS ORDERED: GLYCOPYRROLATE 0.2 MG/ML 2 ML VIAL ONE (07:32)
[2024-05-03] MEDS ORDERED: ROCURONIUM 10 MG/ML (5 ML VIAL) IV ONE (07:32)
[2024-05-03] MEDS ORDERED: LIDOCAINE 1% INJ 10MG/ML (20 ML MDV) ONE (07:32)
[2024-05-03] MEDS ORDERED: TRANEXAMIC 1,000 MG/100ML-NACL PREMIX BAG ONE (07:32)
[2024-05-03] MEDS ORDERED: NEOSTIGMINE 1 MG/ML 10 ML VIAL ONE (07:32)
[2024-05-03] MEDS ORDERED: ROPIVACAINE 5 MG/ML 30 ML VIAL ONE (07:32)
[2024-05-03] MEDS ORDERED: SUCCINYLCHOLINE CHLORIDE 200 MG/10 ML VIAL IV ONE (07:32)
[2024-05-03] MEDS ORDERED: DEXAMETHASONE SOD PHOSPHATE 4 MG/ML 1 ML VIAL ONE (07:32)
[2024-05-03] MEDS: ROPIVACAINE/EPI/CLONIDINE/KET 50 ML SYRINGE MISCELLANE PRN (09:15)
[2024-05-03] MEDS: LACTATED RINGERS 1,000 ML IV ONE (09:47)
[2024-05-03] MEDS ORDERED: HYDROcodone/APAP 5-325MG 1 EACH TAB PO PRN (09:59)
[2024-05-03] MEDS ORDERED: MAGNESIUM HYDROXIDE 2,400 MG/30 ML CUP PO PRN (09:59)
[2024-05-03] MEDS ORDERED: NALOXONE 0.4 MG/ML 1 ML VIAL IV PRN (09:59)
--- NOTE | 2024-05-03 10:02 | P.OP ---
Date of Procedure: 05/03/24 Preoperative Diagnosis: 1. Severe left hip arthritis 2. COPD 3. BMI 36.6 Postoperative Diagnosis: same Procedure(s) Performed: left direct anterior total hip arthroplasty Implants: 1. Tristen Trident II Acetabular Cup, Size #48 2. [place] Insignia Size # 3 Femoral Stem, Standard Offset 3. Dual Mobility OD 38 mm, ID 22.2 mm, +0 mm neck Anesthesia: JARETT, regional Surgeon: Ricky Beth Home Economist #1: Can Celaya Estimated Blood Loss (ml): 300 IV fluids (ml): 800 Pathology: none sent Condition: stable Disposition: PACU Indications for Procedure: I had a long discussion with the patient in the office on the potential risks and complications of an elective total hip replacement through a direct anterior approach. Risks discussed include, but are certainly not limited to, risks from anesthesia, superficial infection requiring local wound care or antibiotics, deep milana-prosthetic joint infection and the treatment required to eradicate infection, intraoperative fracture, postoperative periprosthetic fracture, damage to local blood vessels or nerves particularly the lateral femoral cutaneous nerve, delayed wound healing requiring local wound care or possibly surgical debridement, hip dislocation, leg length discrepancy, soft tissue irritation around the total hip implant such as iliopsoas tendinitis or trochanteric bursitis, wear and osteolysis from the implants, squeaking or nella ble noises, groin pain, thigh pain, heterotopic ossification, stiffness, aseptic loosening of the implants, dissatisfaction with surgical outcome, need for revision surgery, DVT, PE, swelling of the operative extremity, acute coronary event, stroke, failure to thrive, and possibly loss of life or limb. The patient understands that while these are the most common complications after an elective hip replacement there are certainly other less common complications possible. They were given ample time to ask questions regarding the potential complications of a hip replacement. Following our discussion the patient provided their verbal and written consent to go forward with an elective total hip replacement. Operative Findings: severe left hip osteoarthritis Description of Procedure: The patient was identified in the preoperative holding area and the correct hip was marked with my initials. I reviewed the procedure and consent with the patient. All of their questions were answered. The patient was then brought back into the operating room by anesthesia. While on the [facility] anesthesia was administered by the anesthesia team. Preoperative antibiotics and tranexamic acid were also given. After the patient was under anesthesia I examined their ankles to determine their preoperative leg length discrepancy. The skin over the anterior aspect of the hip was shaved to remove hair over the site of planned incision. Both feet and ankles were padded with webril and boots for the Success were applied. The patient was then carefully transferred onto the Success table. A perineal post was immediately placed. The arms were placed on arm holders and were well-padded. Both boots were secured to the spars on the Success table. The patient was positioned so that the pelvis was centered over the post. Nonsterile drapes were applied. A timeout was performed identifying the correct patient, operative extremity, and procedure. At this point fluoroscopy was brought in to take preoperative images of the pelvis and operative hip. Using the standing AP pelvis from the office as a template, a comparable image was obtained with fluoroscopy. A metallic bar was used to create a bi-ischial line for use as a reference to leg length adjustments during the procedure. Global offset was also measured on both the operative and nonoperative leg. Fluoroscopy was then brought out and a pre-scrub using a chlorhexidine scrub brush was performed. The operative limb was then prepped and draped in the standard sterile fashion. An anterior longitudinal incision was made lateral and distal to the ASIS. The skin and subcutaneous tissues were incised sharply. The underlying tensor fascia was identified and incised in its midportion. The fascia was dissected free from the underlying muscle and the muscle belly was retracted. A blunt tipped cobra retractor was placed over the superior neck under the muscle fibers of the gluteus minimus. The deep enveloping fascia of the tensor was incised. The anterior leash of vessels were then identified and cauterized. The fascia between the rectus and the capsule was then incised and the pre-capsular fat was excised. A second Cobra was placed inferior to the neck. The interval between the rectus and iliocapsularis and the hip capsule was developed and a retractor was placed carefully over the anterior rim of the acetabulum. A T-shaped anterior capsulotomy was performed. The superior capsular leaflet was left in place in the inferior capsular flap was excised. The Cobra retractors were placed intracapsularly. We then made a femoral neck osteotomy according to preoperative and intraoperative templating and confirmed the level of the osteotomy using fluoroscopic imaging. The femoral head was removed, passed off to the back table, and sized. The superior capsular flap was excised. Retractors were placed circumferentially exposing the acetabulum. We then circumferentially debrided the acetabulum free of labrum and osteophytes. The pulvinar was removed to fully visualize the cotyloid fossa. We then sequentially reamed to achieve peripheral fit and excellent bleeding subchondral bone. The socket was thoroughly irrigated. The acetabular component was impacted into the appropriate position using fluoroscopy to guide version, inclination, and depth of insertion taking care to have a comparable image of the AP pelvis to the standing image taken in the office. An excellent press-fit was achieved and final position was confirmed using fluoroscopy. The press fit was augmented with bony cancellus dome screws. The liner was then impacted into the socket. Attention was then turned to the femur. The remnant dorsal lateral capsule was excised. The short external rotators were visible and protected. A bone hook was used to confirm appropriate translation of the trochanter away from the acetabulum. The leg was then extended and adducted and the bone hook was used to elevate the femur for broaching. A box osteotome and blunt tipped canal sound was then utilized to gain access to the femoral canal. We then sequentially broached the femur in appropriate anteversion until excellent torsional stability was achieved. The neck cut was brought flush to the trial broach with a calcar planar. A trial neck and head were then placed onto the broach and the hip was atraumatically reduced under direct visualization. External rotation to 90 was performed to assess stability. Fluoroscopy was brought in. An AP and lateral fluoroscopic image of the proximal femur was obtained to assess position and fill of the trial broach. An AP of the pelvis was then obtained and matched to the preoperative image taken. A bi-ischial bar was then placed and measurements were taken to assess changes in length and offset. The hip was then carefully dislocated, the proximal femur was exposed, and the trial implants were removed. The wound and proximal femur was thoroughly irrigated using sterile saline and pulsatile lavage. The final femoral implant was dispensed and gently tapped into place generating an excellent press-fit. The trunnion was cleansed and the final head was tapped into place to engage the Ramos taper. The acetabulum was irrigated and visualized to be free of debris. The hip was carefully reduced. Stability was checked clinically with external rotation to 90 and there was no evidence of instability. Final fluoroscopic images were taken. The wound was then thoroughly irrigated and soaked with a dilute Betadine rinse for 3 minutes. 3 L of sterile saline was irrigated through the wound using pulsatile lavage. Local anesthetic cocktail was injected into the soft tissues around the surgical field. The wound was then closed in layers. An incisional wound VAC was placed over the closed incision to help lower the risk of delayed wound healing and surgical site infection. After connecting the wound VAC to it's power source, there was an excellent seal. The drapes were taken down and the patient was carefully transferred off of the Success table. Following removal of the boots the leg lengths felt acceptable. The patient was then taken to recovery room having tolerated the procedure well. Can Celaya PA-C was required as a skilled campaign assistant due to the complexity of the procedure for patient positioning, draping, exposure, retraction, closure of wound and application of dressing. PLAN: The patient can weight-bear as tolerated on the operative extremity. 2 doses of postoperative antibiotics. DVT prophylaxis with aspirin 81 mg twice a day based on preoperative risk stratification. Physical therapy for gait training.
[2024-05-03] MEDS: IV FLUID CONTINUATION 900 ML IV ONE (10:17)
--- NOTE | 2024-05-03 11:37 | FL ---
EXAMINATION TYPE: FL guidance operating room, XR Hip Limited LT Intraoperative/procedural fluoroscopi c services were provided. Total fluoroscopy time is 6 seconds with a total of 20.7 submitted images t o PACS. Please see the operative/procedural note for further details. DAP: 0.65 5 Gycm2
[2024-05-03] MEDS: SODIUM CHLORIDE 0.9% 1,000 ML IV SCH (13:35)
[2024-05-03] MEDS ORDERED: PANTOPRAZOLE 40 MG TABLET PO PRN (17:18)
--- NOTE | 2024-05-03 20:50 | P.CONS ---
History of Present Illness - Reason for Consult Consult date: 05/03/24 Medical management Requesting physician: Ricky Beth - Chief Complaint Left hip surgery - History of Present Illness Very pleasant 73-year-old patient who follows with Dr. Shrestha. Chronic stable medical condition include COPD, fibromyalgia, GERD, hypertension, hyperlipidemia, osteoarthritis, hypothyroid supposed to use oxygen at home only to but does not use it, IBS anxiety depression. Patient is undergone, left total hip anterior arthroplasty. Pain is controlled. No nausea vomiting. Did eat a light supper. Denies any chest pain. Review of systems: GEN.: None EYES: None HEENT: None NECK: None RESPIRATORY: None CARDIOVASCULAR: None GASTROINTESTINAL: None GENITOURINARY: None MUSCULOSKELETAL: Joint pains e LYMPHATICS: None HEMATOLOGICAL: None PSYCHIATRY: None NEUROLOGICAL: None Social history: Smoked 1 and half pack a day for about 45 years. Stopped in 2021. No alcohol. Does smoke some marijuana Physical examination: VITAL SIGNS: Afebrile, 66, 16, 109/60, 96% on 2 L GENERAL: BMI 36.6, reclining bed awake a bit tired. EYES: Pupils equal. Conjunctiva sumeet l. HEENT: External appearance of nose and ears normal, oral cavity grossly normal. NECK: JVD not raised; masses not palpable. HEART: First and second heart sounds are normal; no edema. LUNGS: Respiratory rate normal; decreased breath sounds. ABDOMEN: Soft, nontender, liver spleen not palpable, no masses palpable. PSYCH: Alert and oriented x3; mood and affect sumeet l. MUSCULOSKELETAL:No Clubbing/cyanosis;muscles-grossly intact. OA. Dressing over the left hip incision site. Prevena NEUROLOGICAL: Cranial nerves grossly intact; no facial asymmetry, power and sensation grossly intact. LYMPHATICS: No lymph nodes palpable in the axilla and neck INVESTIGATIONS, reviewed in the clinical context: March 27, 2024: White count 6.2 hemoglobin 11.4 platelets 314 potassium 3.9 BUN 30.3 creatinine 1.6 Assessment plan: -Left total hip arthroplasty anterior approach Aspirin for DVT prophylaxis. Pain controlled. IV cefazolin for infection prophylaxis -Essential hypertension. Currently blood pressure running on the lower side. Resume Toprol-XL. Hold amlodipine. Hold valsartan -Primary osteoarthritis Pain medications as needed -GERD PPI -Hypothyroid Synthroid 25 mcg a day -Anxiety and depression Paxil. Xanax. Abilify. -COPD and a prior smoker Symbicort 1 puff twice daily. Albuterol as needed -Hyperlipidemia Zocor 20 mg nightly -Suspect chronic kidney disease stage III from nephrosclerosis Note that patient takes Motrin and NSAIDs at home IV fluids. Repeat labs in the morning -Obesity BMI 36.6 Weight loss measures Care was discussed with the patient. Questions answered. Check CBC BMP in the morning. Thank you Dr. Beth. Past Medical History Past Medical History: COPD, Fibromyalgia, GERD/Reflux, Hyperlipidemia, Hypertension, Osteoarthritis (OA), Thyroid Disorder Additional Past Medical History / Comment(s): "suppose to sleep with oxygen @ 1 L NC but I don't use it.",idris lower ext edema, IBS. "I have a little leaking in a heart valve-not sure which one," tilt table test 2022 History of Any Multi-Drug Resistant Organisms: None Reported Past Surgical History: Breast Surgery, Joint Replacement, Tubal Ligation Additional Past Surgical History / Comment(s): lumpectomy left breast. Hip replacement surgery 2006. D&C 2007, colonoscopy 2017. Gallbladder 2019. Past Anesthesia/Blood Transfusion Reactions: Previous Problems w/ Anesthesia Additional Past Anesthesia/Blood Transfusion Reaction / Comm: "I get violent when I come out". no problems with prior blood transfusion approx 40 yrs ago Past Psychological History: Anxiety, Depression Smoking Status: Former smoker Past Alcohol Use History: None Reported Additional Past Alcohol Use History / Comment(s): smokes 1 1/2 PPD FOR ABOUT 45 YRS . Quit smoking cigarettes 2021. Past Drug Use History: Marijuana Additional Drug Use History / Comment(s): smokes marijuana weekly - Past Family History Father Family Medical History: Myocardial Infarction (NH) Mother Family Medical History: Cancer Additional Family Medical History / Comment(s): Cervical cancer. Sister(s) Family Medical History: Diabetes Mellitus Medications and Allergies Home Medications Medication Instructions Recorded Confirmed Type Simvastatin [Zocor] 20 mg PO HS 05/28/17 05/03/24 History ALPRAZolam [Xanax] 1 mg PO TID PRN 02/14/23 05/03/24 History ARIPiprazole [Abilify] 15 mg PO QAM 02/14/23 05/03/24 History Albuterol Sulfate [Albuterol 1 - 2 puff PO RT-Q4H PRN 02/14/23 05/03/24 History Sulfate Hfa] Folic Acid 1 mg PO QAM 02/14/23 05/03/24 History Metoprolol Succinate [Toprol XL] 50 mg PO HS 02/14/23 05/03/24 History PARoxetine HCL [Paxil] 40 mg PO QAM 02/14/23 05/03/24 History Valsartan 320 mg PO HS 02/14/23 05/03/24 History Aspirin [Adult Low Dose Aspirin EC] 81 mg PO QAM 09/08/23 05/03/24 History Budesonide-Formot 160-4.5 Mcg 1 dose INHALATION BID 09/08/23 05/03/24 History [Symbicort 160-4.5 Mcg Inhaler] Cholecalciferol [Vitamin D3 (25 50 mcg PO QAM 09/08/23 05/03/24 History Mcg = 1000 Iu)] Levothyroxine Sodium [Synthroid] 25 mcg PO QAM 09/08/23 05/03/24 History Omeprazole 20 mg PO QAM PRN 09/08/23 05/03/24 History Ondansetron [Zofran] 4 mg PO TID PRN 09/08/23 05/03/24 History amLODIPine [Norvasc] 2.5 mg PO QAM 09/08/23 05/03/24 History Mupirocin 2% Oint [Bactroban 2% 1 applic EA NOSTRIL BID 04/30/24 05/03/24 History Oint] oxyCODONE-APAP 7.5-325MG [Percocet 1 tab PO BID PRN 04/30/24 05/03/24 History 7.5-325 mg] Aspirin 81 mg PO BID #60 tab 05/03/24 Rx Diclofenac Sodium [Voltaren] 75 mg PO BID #60 tab 05/03/24 Rx Omeprazole 20 mg PO DAILY #30 tab 05/03/24 Rx Ondansetron [Zofran] 4 mg PO Q6HR PRN #30 tab 05/03/24 Rx Sennosides-Docusate Sodium 1 tab PO BID PRN #60 tablet 05/03/24 Rx [Senokot-S] oxyCODONE HCL/ACETAMINOPHEN 1 tab PO Q4HR PRN #21 tab 05/03/24 Rx [Percocet 7.5-325 mg] Allergies Allergy/AdvReac Type Severity Reaction Status Date / Time No Known Allergies Allergy Verified 05/03/24 06:27 Physical Exam Vitals: Vital Signs Temp Pulse Pulse Resp BP BP Pulse Ox 05/03/24 13:28 66 16 109/60 96 05/03/24 13:09 123/61 05/03/24 12:57 60 16 104/46 96 05/03/24 12:45 61 16 95/47 96 05/03/24 12:30 61 16 90/46 97 05/03/24 12:15 63 16 101/43 96 05/03/24 12:00 66 16 89/47 96 05/03/24 11:45 79 16 90/47 96 05/03/24 11:30 62 14 97/53 96 05/03/24 11:00 68 14 111/45 95 05/03/24 10:54 70 14 100/50 96 05/03/24 10:39 76 14 119/56 95 05/03/24 10:24 67 13 93/57 94 L 05/03/24 10:09 98.1 F 76 16 125/65 98 05/03/24 07:30 67 16 148/68 98 05/03/24 06:08 97.5 F L 71 16 153/67 96 05/03/24 01:45 70 16 120/61 92 L Intake and Output 05/03/24 05/03/24 05/03/24 06:59 14:59 22:59 Intake Total 100 1650 Output Total 300 Balance 100 1350 Intake: IV 100 1650 Output: Estimated Blood Loss 300 Other: # Voids 1 Weight 96.62 kg 96.62 kg
[2024-05-03] MEDS ORDERED: VALSARTAN 160 MG TAB PO SCH (21:00)
[2024-05-03] MEDS: SYMBICORT 160-4.5 MCG INHALER INHALATION SCH (21:09)
[2024-05-03] MEDS: SENNOSIDES-DOCUSATE SODIUM 1 EACH TAB PO SCH (22:09)
[2024-05-03] MEDS: METOPROLOL SUCCINATE (ER) 50 MG TAB.ER.24H PO SCH (22:09)
[2024-05-03] MEDS: ASPIRIN 81 MG PO SCH (22:09)
[2024-05-03] MEDS: ATORVASTATIN 10 MG TAB PO SCH (22:09)
[2024-05-03] MEDS: ALPRAZolam 1 MG TAB PO PRN (22:28)
[2024-05-04] MEDS: MUPIROCIN 2% OINT 22 GM TUBE NASAL SCH (00:20)
[2024-05-04] MEDS: HYDROcodone/APAP 10-325MG 1 EACH TAB PO PRN (03:22)
[2024-05-04] MEDS: LEVOTHYROXINE 25 MCG TAB PO SCH (06:05)
[2024-05-04 06:48] LABS: Basophils % (A) 0 %; Eosinophils # (A) 0.1 k/uL (0-0.7); Eosinophils % (A) 1 %; HCT 27.9 % (34.0-46.0); HGB 8.6 gm/dL (11.4-16.0); Hypochromasia Marked; Lymphocytes # (A) 1.1 k/uL (1.0-4.8); Lymphocytes % (A) 12 %; MCH 29.9 pg (25.0-35.0); MCHC 30.6 g/dL (31.0-37.0); MCV 97.8 fL (80.0-100.0); Macrocytosis Slight; Monocytes # (A) 0.8 k/uL (0-1.0); Monocytes % (A) 8 %; Neutrophils # (A) 7.5 k/uL (1.3-7.7); Neutrophils % (A) 79 %; Platelet Count 184 k/uL (150-450); RBC 2.86 m/uL (3.80-5.40); RDW 15.7 % (11.5-15.5); WBC 9.6 k/uL (3.8-10.6)
[2024-05-04 07:26] LABS: African American GFR (CKD) 59 (>60 ml/min/1.73 sqM); Anion Gap 3 mmol/L; Blood Urea Nitrogen 16 mg/dL (7-17); Carbon Dioxide 25 mmol/L (22-30); Chloride 111 mmol/L (98-107); Glucose 126 mg/dL (74-99); Non-African American GFR(CKD) 51 (>60 ml/min/1.73 sqM); Sodium 139 mmol/L (137-145)
[2024-05-04] MEDS: ARIPiprazole 15 MG TAB PO SCH (08:09)
[2024-05-04] MEDS: PARoxetine 20 MG TAB PO SCH (08:09)
[2024-05-04] MEDS: hydrOXYzine pamoate 25 MG CAP PO PRN (08:14)
--- NOTE | 2024-05-04 08:21 | P.PN ---
Subjective Patient is doing well this morning. She is sitting up at bedside in the My evaluation. She has mild discomfort in her left hip is otherwise doing well. She denies chest pain or shortness of breath. She has been up to the bathroom several times with a walker and assistance. Objective - Vital Signs Vital signs: Vital Signs Temp 97.8 F 05/04/24 02:19 Pulse 68 05/04/24 02:19 Resp 18 05/04/24 02:19 BP 97/57 05/04/24 02:19 Pulse Ox 94 L 05/04/24 02:19 FiO2 Intake & Output 05/03/24 05/04/24 05/04/24 18:59 06:59 18:59 Intake Total 1650 Output Total 300 Balance 1350 Weight 96.62 kg Intake: IV 1650 Output: Estimated Blood Loss 300 Other: Voiding Method Toilet # Voids 1 1 - Exam The patient is sitting up at bedside. She is alert and able to answer qu estions. A focused exam the left lower extremity was conducted. On inspection there is no intact incisional wound VAC with good seal. Her thigh is soft. Femoral nerve function is intact. She is able to actively plantarflex and dorsiflex her ankle and her toes. - Labs CBC & Chem 7: 05/04/24 06:37 05/04/24 06:37 Labs: Abnormal Lab Results - Last 24 Hours (Table) 05/04/24 05/04/24 Range/Units 06:37 06:37 RBC 2.86 L (3.80-5.40) m/uL Hgb 8.6 L (11.4-16.0) gm/dL Hct 27.9 L (34.0-46.0) % MCHC 30.6 L (31.0-37.0) g/dL RDW 15.7 H (11.5-15.5) % Chloride 111 H (98-107) mmol/L Creatinine 1.09 H (0.52-1.04) mg/dL Glucose 126 H (74-99) mg/dL Calcium 8.0 L (8.4-10.2) mg/dL Assessment and Plan Assessment: Postoperative day #1 status post left direct anterior total hip arthroplasty, doing well. Plan: 1. Weight bear as tolerated on the operative extremity, up with assistance and a walker 2. DVT prophylaxis with aspirin 81 mg BID 3. 2 doses of post operative antibiotics, followed by doxycycline 100 mg twice a day until her incision heals given her body habitus 4. Leave surgical dressing in place 5. Internal medicine for milana-operative medical management 6. Physical therapy for gait training and mobilization 7. Dispo: Awaiting evaluation by physical therapy for discharge recommendations, home versus rehab. We will plan on keeping the patient until tomorrow. If she is cleared to discharge home we will discharge her and if she requires discharged to rehab she will likely be in-house over the weekend.
[2024-05-04] MEDS: DOXYCYCLINE 100 MG CAP PO SCH (09:21)
[2024-05-04] MEDS: FERROUS SULFATE 325 MG TAB PO SCH (13:32)
[2024-05-04] MEDS: SODIUM FERRIC GLUCONAT-SUCROSE 125 MG in SODIUM CHLORIDE 0.9% 100 ML IVPB SCH (13:35)
--- NOTE | 2024-05-04 15:08 | P.PN ---
Progress Note - Text Progress Note Date: 05/04/24 - Chief Complaint Left hip surgery - History of Present Illness Very pleasant 73-year-old patient who follows with Dr. Shrestha. Chronic stable medical condition include COPD, fibromyalgia, GERD, hypertension, hyperlipidemia, osteoarthritis, hypothyroid supposed to use oxygen at home only to but does not use it, IBS anxiety depression. Patient is undergone, left total hip anterior arthroplasty. Pain is controlled. No nausea vomiting. Did eat a light supper. Denies any chest pain. May 04: Feels a bit tired. Denies lightheadedness. Hemoglobin dropped. IV Ferrlecit 2 doses ordered. Blood pressure borderline. Currently amlodipine and valsartan has been held. Discussed with patient. Eating fair. Has been out of bed. Active Medications Hydrocodone Bitart/Acetaminophen (Hydrocodone/Apap 5-325mg 1 Each Tab) 1 each PO Q6HR PRN PRN Reason: Pain Scale 1 to 5 Stop: 06/02/24 10:00 Hydrocodone Bitart/Acetaminophen (Hydrocodone/Apap 10-325mg 1 Each Tab) 1 each PO Q6H PRN PRN Reason: Pain Scale 6 to 10 Stop: 06/02/24 10:00 Last Admin: 05/04/24 13:32 Dose: 1 each Alprazolam (Alprazolam 1 Mg Tab) 1 mg PO TID PRN PRN Reason: Anxiety Last Admin: 05/04/24 15:02 Dose: 1 mg Aripiprazole (Aripiprazole 15 Mg Tab) 15 mg PO QAM [facility] Last Admin: 05/04/24 08:09 Dose: 15 mg Aspirin (Aspirin 81 Mg) 81 mg PO BID [facility] Stop: 06/02/24 21:01 Last Admin: 05/04/24 08:09 Dose: 81 mg Atorvastatin Calcium (Atorvastatin 10 Mg Tab) 10 mg PO HS [facility] Last Admin: 05/03/24 22:09 Dose: 10 mg Budesonide/Formoterol Fumarate (Symbicort 160-4.5 Mcg Inhaler) 2 puff INHALATION RT-BID [facility] Last Admin: 05/04/24 08:47 Dose: 2 puff Doxycycline Monohydrate (Doxycycline 100 Mg Cap) 100 mg PO BID [facility]; Protocol Last Admin: 05/04/24 09:21 Dose: 100 mg Ferrous Sulfate (Ferrous Sulfate 325 Mg Tab) 325 mg PO W/LUNCH [facility] Last Admin: 05/04/24 13:32 Dose: 325 mg Hydromorphone HCl (Hydromorphone 0.5 Mg/0.5 Ml Syringe) 0.125 mg IVP Q3HR PRN PRN Reason: Pain Scale 1 to 3 Stop: 06/02/24 10:00 Hydromorphone HCl (Hydromorphone 0.5 Mg/0.5 Ml Syringe) 0.25 mg IVP Q3HR PRN PRN Reason: Pain Scale 4 to 6 Stop: 06/02/24 10:00 Hydromorphone HCl (Hydromorphone 0.5 Mg/0.5 Ml Syringe) 0.5 mg IVP Q3HR PRN PRN Reason: Pain Scale 7 to 10 Stop: 06/02/24 10:00 Hydroxyzine Pamoate (Hydroxyzine Pamoate 25 Mg Cap) 25 mg PO Q4HR PRN PRN Reason: Nausea, Anxiety, Pain Control Stop: 06/02/24 10:00 Last Admin: 05/04/24 13:35 Dose: 25 mg Sodium Chloride (Saline 0.9%) 1,000 mls @ 100 mls/hr IV .Q10H [facility] Stop: 06/02/24 10:01 Last Admin: 05/04/24 07:07 Dose: Not Given Ferric Sodium Gluconate 125 mg (/ Sodium Chloride) 110 mls @ 100 mls/hr IVPB DAILY [facility] Stop: 05/05/24 10:05 Last Admin: 05/04/24 13:35 Dose: 100 mls/hr Levothyroxine Sodium (Levothyroxine 25 Mcg Tab) 25 mcg PO DAILY@0630 [facility] Last Admin: 05/04/24 06:05 Dose: 25 mcg Magnesium Hydroxide (Magnesium Hydroxide 2,400 Mg/30 Ml Cup) 2,400 mg PO DAILY PRN PRN Reason: Constipation Stop: 06/02/24 10:00 Metoprolol Succinate (Metoprolol Succinate (Er) 50 Mg Tab.Er.24h) 50 mg PO HS [facility] Last Admin: 05/03/24 22:09 Dose: Not Given Mupirocin (Mupirocin 2% Oint 22 Gm Tube) 1 applic NASAL BID [facility]; Protocol Last Admin: 05/04/24 08:09 Dose: 1 applic Naloxone HCl (Naloxone 0.4 Mg/Ml 1 Ml Vial) 0.2 mg IV Q2M PRN PRN Reason: Opioid Reversal Stop: 06/02/24 10:00 Pantoprazole Sodium (Pantoprazole 40 Mg Tablet) 40 mg PO QAM PRN PRN Reason: reflux Paroxetine HCl (Paroxetine 20 Mg Tab) 40 mg PO QAM [facility] Last Admin: 05/04/24 08:09 Dose: 40 mg Senna/Docusate Sodium (Sennosides-Docusate Sodium 1 Each Tab) 2 each PO HS [facility] Stop: 06/02/24 21:01 Last Admin: 05/03/24 22:09 Dose: 2 each Social history: Smoked 1 and half pack a day for about 45 years. Stopped in 2021. No alcohol. Does smoke some marijuana Physical examination: VITAL SIGNS: 98, 70, 18, 112 565, 95% room air GENERAL: Awake pending bed, comfortable EYES: Pupils equal. Conjunctiva sumeet l. HEENT: External appearance of nose and ears normal, oral cavity grossly normal. NECK: JVD not raised; masses not palpable. HEART: First and second heart sounds are normal; no edema. LUNGS: Respiratory rate normal; decreased breath sounds. ABDOMEN: Soft, nontender, liver spleen not palpable, no masses palpable. PSYCH: Alert and oriented x3; mood and affect sumeet l. MUSCULOSKELETAL:No Clubbing/cyanosis;muscles-grossly intact. OA. Dressing over the left hip incision site. Prevena NEUROLOGICAL: Cranial nerves grossly intact; no facial asymmetry, power and sensation grossly intact. INVESTIGATIONS, reviewed in the clinical context: May 04: White count 9.6 hemoglobin 8.6 platelets 184 potassium 4 creatinine 1.09 March 27, 2024: White count 6.2 hemoglobin 11.4 platelets 314 potassium 3.9 BUN 30.3 creatinine 1.6 Assessment plan: -Left total hip arthroplasty anterior approach Aspirin for DVT prophylaxis. Pain controlled. IV cefazolin for infection prophylaxis -Essential hypertension. Currently blood pressure running on the lower side. Resume Toprol-XL. Hold amlodipine. Hold valsartan -Acute postprocedure blood loss anemia expected from surgery IV Ferrlecit x 2 doses. Oral ferrous sulfate -Primary osteoarthritis Pain medications as needed -GERD PPI -Hypothyroid Synthroid 25 mcg a day -Anxiety and depression Paxil. Xanax. Abilify. -COPD and a prior smoker Symbicort 1 puff twice daily. Albuterol as needed -Hyperlipidemia Zocor 20 mg nightly -Suspect chronic kidney disease stage III from nephrosclerosis Note that patient takes Motrin and NSAIDs at home IV fluids. Repeat labs in the morning -Obesity BMI 36.6 Weight loss measures Discussed with patient. IV Ferrlecit. Hold antihypertensives as above Thank you Dr. Beth. Past Medical History Past Medical History: COPD, Fibromyalgia, GERD/Reflux, Hyperlipidemia, Hypertension, Osteoarthritis (OA), Thyroid Disorder Additional Past Medical History / Comment(s): "suppose to sleep with oxygen @ 1 L NC but I don't use it.",idris lower ext edema, IBS. "I have a little leaking in a heart valve-not sure which one," tilt table test 2022 History of Any Multi-Drug Resistant Organisms: None Reported Past Surgical History: Breast Surgery, Joint Replacement, Tubal Ligation Additional Past Surgical History / Comment(s): lumpectomy left breast. Hip replacement surgery 2006. D&C 2007, colonoscopy 2017. Gallbladder 2019. Past Anesthesia/Blood Transfusion Reactions: Previous Problems w/ Anesthesia Additional Past Anesthesia/Blood Transfusion Reaction / Comm: "I get violent when I come out". no problems with prior blood transfusion approx 40 yrs ago Past Psychological History: Anxiety, Depression Smoking Status: Former smoker Past Alcohol Use History: None Reported Additional Past Alcohol Use History / Comment(s): smokes 1 1/2 PPD FOR ABOUT 45 YRS . Quit smoking cigarettes 2021. Past Drug Use History: Marijuana Additional Drug Use History / Comment(s): smokes marijuana weekly
--- NOTE | 2024-05-05 09:51 | P.PN ---
Subjective Progress Note Date: 05/05/24 This is a 73-year-old female who is status post left direct anterior total hip arthroplasty. This is postoperative day #2 and patient is seen and evaluated at bedside today. Patient states that she is still requiring assistance with mobility and does not feel ready to go home today. Patient states that she is able to bear weight and ambulate with her walker, but is still quite sore and stiff. Objective - Vital Signs Vital signs: Vital Signs Temp 98.7 F 05/05/24 07:14 Pulse 74 05/05/24 07:14 Resp 18 05/05/24 07:14 BP 109/68 05/05/24 07:14 Pulse Ox 93 L 05/05/24 07:14 FiO2 Intake & Output 05/04/24 05/05/24 05/05/24 18:59 06:59 18:59 Intake Total 300 300 Output Total 1161 Balance 300 -1161 300 Intake: Oral 300 300 Output: Urine 600 Straight 600 Post Void Residual 561 Other: Voiding Method Toilet Toilet # Voids 3 1 - Exam Vital signs are stable. Patient is in no acute distress and is alert and oriented 3. Calf is soft and nontender to palpation. Prevena wound vac is cl ash, dry, and intact. Patient has full foot and ankle motion without pain or difficulty. Sensation intact. Neurovascular status and circulatory status are intact. - Labs CBC & Chem 7: 05/04/24 06:37 05/04/24 06:37 Assessment and Plan (1) Osteoarthritis of left hip Current Visit: Yes Status: Acute Code(s): M16.12 - UNILATERAL PRIMARY OSTEOARTHRITIS, LEFT HIP SNOMED Code(s): 933293612987996 (2) S/P total hip arthroplasty Current Visit: Yes Status: Acute Code(s): Z96.649 - PRESENCE OF UNSPECIFIED ARTIFICIAL HIP JOINT SNOMED Code(s): 414073033194 Plan: Continue routine postop care and pain control. Continue anticoagulation. Weightbearing as tolerated with a walker. Leave Prevena wound vac in place for 7 days. Appreciate input from internal medicine. Anticipate discharge home with homecare or to ECF in the next 24-48 hours.
--- NOTE | 2024-05-05 18:02 | P.PN ---
Progress Note - Text Progress Note Date: 05/05/24 - Chief Complaint Left hip surgery - History of Present Illness Very pleasant 73-year-old patient who follows with Dr. Shrestha. Chronic stable medical condition include COPD, fibromyalgia, GERD, hypertension, hyperlipidemia, osteoarthritis, hypothyroid supposed to use oxygen at home only to but does not use it, IBS anxiety depression. Patient is undergone, left total hip anterior arthroplasty. Pain is controlled. No nausea vomiting. Did eat a light supper. Denies any chest pain. May 04: Feels a bit tired. Denies lightheadedness. Hemoglobin dropped. IV Ferrlecit 2 doses ordered. Blood pressure borderline. Currently amlodipine and valsartan has been held. Discussed with patient. Eating fair. Has been out of bed. May 05: Patient feeling rather tired. Stiff. Pain at the operative site. Blood pressure stable off amlodipine and valsartan. Discussed with patient. Getting IV Ferrlecit. Active Medications Hydrocodone Bitart/Acetaminophen (Hydrocodone/Apap 5-325mg 1 Each Tab) 1 each PO Q6HR PRN PRN Reason: Pain Scale 1 to 5 Stop: 06/02/24 10:00 Hydrocodone Bitart/Acetaminophen (Hydrocodone/Apap 10-325mg 1 Each Tab) 1 each PO Q6H PRN PRN Reason: Pain Scale 6 to 10 Stop: 06/02/24 10:00 Last Admin: 05/05/24 15:00 Dose: 1 each Alprazolam (Alprazolam 1 Mg Tab) 1 mg PO TID PRN PRN Reason: Anxiety Last Admin: 05/05/24 12:00 Dose: 1 mg Aripiprazole (Aripiprazole 15 Mg Tab) 15 mg PO QAM [facility] Last Admin: 05/05/24 08:27 Dose: 15 mg Aspirin (Aspirin 81 Mg) 81 mg PO BID [facility] Stop: 06/02/24 21:01 Last Admin: 05/05/24 08:27 Dose: 81 mg Atorvastatin Calcium (Atorvastatin 10 Mg Tab) 10 mg PO HS [facility] Last Admin: 05/04/24 20:38 Dose: 10 mg Budesonide/Formoterol Fumarate (Symbicort 160-4.5 Mcg Inhaler) 2 puff INHALATION RT-BID [facility] Last Admin: 05/05/24 08:29 Dose: 2 puff Doxycycline Monohydrate (Doxycycline 100 Mg Cap) 100 mg PO BID [facility]; Protocol Last Admin: 05/05/24 08:27 Dose: 100 mg Ferrous Sulfate (Ferrous Sulfate 325 Mg Tab) 325 mg PO W/LUNCH [facility] Last Admin: 05/05/24 12:00 Dose: 325 mg Hydromorphone HCl (Hydromorphone 0.5 Mg/0.5 Ml Syringe) 0.125 mg IVP Q3HR PRN PRN Reason: Pain Scale 1 to 3 Stop: 06/02/24 10:00 Hydromorphone HCl (Hydromorphone 0.5 Mg/0.5 Ml Syringe) 0.25 mg IVP Q3HR PRN PRN Reason: Pain Scale 4 to 6 Stop: 06/02/24 10:00 Hydromorphone HCl (Hydromorphone 0.5 Mg/0.5 Ml Syringe) 0.5 mg IVP Q3HR PRN PRN Reason: Pain Scale 7 to 10 Stop: 06/02/24 10:00 Hydroxyzine Pamoate (Hydroxyzine Pamoate 25 Mg Cap) 25 mg PO Q4HR PRN PRN Reason: Nausea, Anxiety, Pain Control Stop: 06/02/24 10:00 Last Admin: 05/05/24 08:27 Dose: 25 mg Sodium Chloride (Saline 0.9%) 1,000 mls @ 100 mls/hr IV .Q10H [facility] Stop: 06/02/24 10:01 Last Admin: 05/05/24 08:35 Dose: Not Given Levothyroxine Sodium (Levothyroxine 25 Mcg Tab) 25 mcg PO DAILY@0630 [facility] Last Admin: 05/05/24 06:34 Dose: 25 mcg Magnesium Hydroxide (Magnesium Hydroxide 2,400 Mg/30 Ml Cup) 2,400 mg PO DAILY PRN PRN Reason: Constipation Stop: 06/02/24 10:00 Metoprolol Succinate (Metoprolol Succinate (Er) 50 Mg Tab.Er.24h) 50 mg PO [facility] Last Admin: 05/04/24 20:38 Dose: 50 mg Mupirocin (Mupirocin 2% Oint 22 Gm Tube) 1 applic NASAL BID [facility]; Protocol Last Admin: 05/05/24 08:28 Dose: 1 applic Naloxone HCl (Naloxone 0.4 Mg/Ml 1 Ml Vial) 0.2 mg IV Q2M PRN PRN Reason: Opioid Reversal Stop: 06/02/24 10:00 Pantoprazole Sodium (Pantoprazole 40 Mg Tablet) 40 mg PO QAM PRN PRN Reason: reflux Paroxetine HCl (Paroxetine 20 Mg Tab) 40 mg PO QAM [facility] Last Admin: 05/05/24 08:27 Dose: 40 mg Senna/Docusate Sodium (Sennosides-Docusate Sodium 1 Each Tab) 2 each PO HS [facility] Stop: 06/02/24 21:01 Last Admin: 05/04/24 20:38 Dose: 2 each Social history: Smoked 1 and half pack a day for about 45 years. Stopped in 2021. No alcohol. Does smoke some marijuana Physical examination: VITAL SIGNS: 98.5, 73, 17, 115/70, 94% room air GENERAL: Reclining in bed EYES: Pupils equal. Conjunctiva sumeet l. HEENT: External appearance of nose and ears normal, oral cavity grossly normal. NECK: JVD not raised; masses not palpable. HEART: First and second heart sounds are normal; no edema. LUNGS: Respiratory rate normal; decreased breath sounds. ABDOMEN: Soft, nontender, liver spleen not palpable, no masses palpable. PSYCH: Alert and oriented x3; mood and affect sumeet l. MUSCULOSKELETAL:No Clubbing/cyanosis;muscles-grossly intact. OA. Dressing over the left hip incision site. Prevena NEUROLOGICAL: Cranial nerves grossly intact; no facial asymmetry, power and sensation grossly intact. INVESTIGATIONS, reviewed in the clinical context: May 04: White count 9.6 hemoglobin 8.6 platelets 184 potassium 4 creatinine 1.09 March 27, 2024: White count 6.2 hemoglobin 11.4 platelets 314 potassium 3.9 BUN 30.3 creatinine 1.6 Assessment plan: -Left total hip arthroplasty anterior approach Aspirin for DVT prophylaxis. Pain controlled. IV cefazolin for infection prophylaxis -Essential hypertension. Currently blood pressure running on the lower side. Resume Toprol-XL. Hold amlodipine. Hold valsartan -Acute postprocedure blood loss anemia expected from surgery IV Ferrlecit x 2 doses. Oral ferrous sulfate -Primary osteoarthritis Pain medications as needed -GERD PPI -Hypothyroid Synthroid 25 mcg a day -Anxiety and depression Paxil. Xanax. Abilify. -COPD and a prior smoker Symbicort 1 puff twice daily. Albuterol as needed -Hyperlipidemia Zocor 20 mg nightly -Suspect chronic kidney disease stage III from nephrosclerosis Note that patient takes Motrin and NSAIDs at home IV fluids. Repeat labs in the morning -Obesity BMI 36.6 Weight loss measures Continue current medications. Discussed with patient. Thank you Dr. Beth. Past Medical History Past Medical History: COPD, Fibromyalgia, GERD/Reflux, Hyperlipidemia, Hypertension, Osteoarthritis (OA), Thyroid Disorder Additional Past Medical History / Comment(s): "suppose to sleep with oxygen @ 1 L NC but I don't use it.",idirs lower ext edema, IBS. "I have a little leaking in a heart valve-not sure which one," tilt table test 2022 History of Any Multi-Drug Resistant Organisms: None Reported Past Surgical History: Breast Surgery, Joint Replacement, Tubal Ligation Additional Past Surgical History / Comment(s): lumpectomy left breast. Hip replacement surgery 2006. D&C 2007, colonoscopy 2017. Gallbladder 2019. Past Anesthesia/Blood Transfusion Reactions: Previous Problems w/ Anesthesia Additional Past Anesthesia/Blood Transfusion Reaction / Comm: "I get violent when I come out". no problems with prior blood transfusion approx 40 yrs ago Past Psychological History: Anxiety, Depression Smoking Status: Former smoker Past Alcohol Use History: None Reported Additional Past Alcohol Use History / Comment(s): smokes 1 1/2 PPD FOR ABOUT 45 YRS . Quit smoking cigarettes 2021. Past Drug Use History: Marijuana Additional Drug Use History / Comment(s): smokes marijuana weekly
--- NOTE | 2024-05-06 08:19 | P.DS ---
Providers Date of admission: 05/03/2024 Attending physician: Ricky Beth Consults: 05/03/24 09:59 Consult Physician Stat Consulting Provider: Rodger Villagomez Consult Reason/Comments: Medical management Do you want consulting provider notified?: Yes Primary care physician: Arron Shrestha - Discharge Diagnosis(es) (1) S/P total hip arthroplasty Status: Acute Hospital Course: This is a 73-year-old female who presented for severe left hip osteoarthritis. On 05/03/2024 the patient had a left direct anterior total hip arthroplasty. Patient tolerated the procedure well. Patient was transferred to the floor. On 05/04/2204 POD#1 patient was up to the bathroom with a walker and worked with physical therapy. On 05/05/2024 POD#2 patient states that she is able to bear weight and ambulate with her walker, but did not feel ready for home yet. On 05/06/2024 POD#3 patient was evaluated at bedside, patient states that the have less pain in the left hip than prior to surgery and they have been up to the bathroom with a walker and feels they are ready to be discharged home with home health care. Assessment: S/P left total hip arthroplasty Plan - Discharge Summary Discharge Rx Participant: No New Discharge Prescriptions: New Aspirin 81 mg PO BID #60 tab Sennosides-Docusate Sodium [Senokot-S] 1 tab PO BID PRN #60 tablet PRN Reason: Constipation Ondansetron [Zofran] 4 mg PO Q6HR PRN #30 tab PRN Reason: Nausea Omeprazole 20 mg PO DAILY #30 tab oxyCODONE HCL/ACETAMINOPHEN [Percocet 7.5-325 mg] 1 tab PO Q4HR PRN #21 tab PRN Reason: Pain Diclofenac Sodium [Voltaren] 75 mg PO BID #60 tab Doxycycline Monohydrate [Monodox] 100 mg PO BID #28 cap No Action Simvastatin [Zocor] 20 mg PO HS Albuterol Sulfate [Albuterol Sulfate Hfa] 1 - 2 puff PO RT-Q4H PRN PRN Reason: Shortness Of Breath Folic Acid 1 mg PO QAM Cholecalciferol [Vitamin D3 (25 Mcg = 1000 Iu)] 50 mcg PO QAM Levothyroxine Sodium [Synthroid] 25 mcg PO QAM Omeprazole 20 mg PO QAM PRN PRN Reason: reflux Budesonide-Formot 160-4.5 Mcg [Symbicort 160-4.5 Mcg Inhaler] 1 dose INHALATION BID Mupirocin 2% Oint [Bactroban 2% Oint] 1 applic EA NOSTRIL BID Valsartan 320 mg PO HS ARIPiprazole [Abilify] 15 mg PO QAM ALPRAZolam [Xanax] 1 mg PO TID PRN PRN Reason: Anxiety PARoxetine HCL [Paxil] 40 mg PO QAM Metoprolol Succinate [Toprol XL] 50 mg PO HS amLODIPine [Norvasc] 2.5 mg PO QAM Aspirin [Adult Low Dose Aspirin EC] 81 mg PO QAM Ondansetron [Zofran] 4 mg PO TID PRN PRN Reason: Nausea oxyCODONE-APAP 7.5-325MG [Percocet 7.5-325 mg] 1 tab PO BID PRN PRN Reason: Pain Discharge Medication List Simvastatin [Zocor] 20 mg PO HS 05/28/17 [History] ALPRAZolam [Xanax] 1 mg PO TID PRN 02/14/23 [History] ARIPiprazole [Abilify] 15 mg PO QAM 02/14/23 [History] Albuterol Sulfate [Albuterol Sulfate Hfa] 1 - 2 puff PO RT-Q4H PRN 02/14/23 [History] Folic Acid 1 mg PO QAM 02/14/23 [History] Metoprolol Succinate [Toprol XL] 50 mg PO HS 02/14/23 [History] PARoxetine HCL [Paxil] 40 mg PO QAM 02/14/23 [History] Valsartan 320 mg PO HS 02/14/23 [History] Aspirin [Adult Low Dose Aspirin EC] 81 mg PO QAM 09/08/23 [History] Budesonide-Formot 160-4.5 Mcg [Symbicort 160-4.5 Mcg Inhaler] 1 dose INHALATION BID 09/08/23 [History] Cholecalciferol [Vitamin D3 (25 Mcg = 1000 Iu)] 50 mcg PO QAM 09/08/23 [History] Levothyroxine Sodium [Synthroid] 25 mcg PO QAM 09/08/23 [History] Omeprazole 20 mg PO QAM PRN 09/08/23 [History] Ondansetron [Zofran] 4 mg PO TID PRN 09/08/23 [History] amLODIPine [Norvasc] 2.5 mg PO QAM 09/08/23 [History] Mupirocin 2% Oint [Bactroban 2% Oint] 1 applic EA NOSTRIL BID 04/30/24 [History] oxyCODONE-APAP 7.5-325MG [Percocet 7.5-325 mg] 1 tab PO BID PRN 04/30/24 [History] Aspirin 81 mg PO BID #60 tab 05/03/24 [Rx] Diclofenac Sodium [Voltaren] 75 mg PO BID #60 tab 05/03/24 [Rx] Omeprazole 20 mg PO DAILY #30 tab 05/03/24 [Rx] Ondansetron [Zofran] 4 mg PO Q6HR PRN #30 tab 05/03/24 [Rx] Sennosides-Docusate Sodium [Senokot-S] 1 tab PO BID PRN #60 tablet 05/03/24 [Rx] oxyCODONE HCL/ACETAMINOPHEN [Percocet 7.5-325 mg] 1 tab PO Q4HR PRN #21 tab 05/03/24 [Rx] Doxycycline Monohydrate [Monodox] 100 mg PO BID #28 cap 05/04/24 [Rx] Follow up Appointment(s)/Referral(s): Ricky Beth MD [Medical Doctor] - 2 Weeks Activity/Diet/Wound Care/Special Instructions: 1. Weight bear as tolerated on your operative extremity, use a walker or cane to ambulate. 2. Leave surgical dressing in place until your follow-up appointment. It is okay to shower 48 hours after surgery but do not soak your leg 3. Take pain medications as prescribed. 4. Take Aspirin 81 mg twice a day for blood clot prevention. 5. Follow-up in the office in 2 weeks for your first postoperative appointment. Please call the office for any concerns. Discharge Disposition: HOME WITH HOME HEALTH SERVICES
[2024-05-06 08:23] LABS: Basophils # (A) 0.02 X 10*3/uL (0.00-0.10); Basophils % (A) 0.3 %; Eosinophils # (A) 0.12 X 10*3/uL (0.04-0.35); Eosinophils % (A) 1.6 %; HCT 24.8 % (37.2-46.3); HGB 7.1 g/dL (12.0-15.0); Lymphocytes # (A) 1.89 X 10*3/uL (0.90-5.00); Lymphocytes % (A) 25.4 %; MCH 28.3 pg (27.0-32.0); MCHC 28.6 g/dL (32.0-37.0); MCV 98.8 FL (80.0-97.0); Mean Platelet Volume 11.8 FL (9.5-12.2); Monocytes # (A) 0.94 X 10*3/uL (0.20-1.00); Monocytes % (A) 12.7 %; NRBC Per 100 WBC 0 X 10*3/uL (0.00-0.01); Neutrophils # (A) 4.44 X 10*3/uL (1.80-7.70); Neutrophils % (A) 59.7 %; Platelet Count 188 X 10*3/uL (140-440); RBC 2.51 X 10*6/uL (4.10-5.20); RDW 16.6 % (11.5-14.5); WBC 7.43 X 10*3/uL (4.50-10.00)
[2024-05-06] MEDS: HYDROmorphone 0.5 MG/0.5 ML SYRINGE IVP PRN (09:37)
[2024-05-06 16:02] VITALS: BP 141/72; PULSE 76; RESP 16; TEMP 98.6
--- NOTE | 2024-05-06 16:05 | P.PN ---
Progress Note - Text Progress Note Date: 05/06/24 - Chief Complaint Left hip surgery - History of Present Illness Very pleasant 73-year-old patient who follows with Dr. Shrsetha. Chronic stable medical condition include COPD, fibromyalgia, GERD, hypertension, hyperlipidemia, osteoarthritis, hypothyroid supposed to use oxygen at home only to but does not use it, IBS anxiety depression. Patient is undergone, left total hip anterior arthroplasty. Pain is controlled. No nausea vomiting. Did eat a light supper. Denies any chest pain. May 04: Feels a bit tired. Denies lightheadedness. Hemoglobin dropped. IV Ferrlecit 2 doses ordered. Blood pressure borderline. Currently amlodipine and valsartan has been held. Discussed with patient. Eating fair. Has been out of bed. May 05: Patient feeling rather tired. Stiff. Pain at the operative site. Blood pressure stable off amlodipine and valsartan. Discussed with patient. Getting IV Ferrlecit. May 06: Doing much better today. Seen by orthopedics. Being discharged home. Discussed with patient. Amlodipine discontinued. Patient to resume valsartan when systolic blood pressure equal to greater than 140. Scratch Social history: Smoked 1 and half pack a day for about 45 years. Stopped in 2021. No alcohol. Does smoke some marijuana Physical examination: VITAL SIGNS: 98.7, 74, 17, 121 x 55, 95% room air GENERAL: Comfortable EYES: Pupils equal. Conjunctiva sumeet l. HEENT: External appearance of nose and ears normal, oral cavity grossly normal. NECK: JVD not raised; masses not palpable. HEART: First and second heart sounds are normal; no edema. LUNGS: Respiratory rate normal; decreased breath sounds. ABDOMEN: Soft, nontender, liver spleen not palpable, no masses palpable. PSYCH: Alert and oriented x3; mood and affect sumeet l. MUSCULOSKELETAL:No Clubbing/cyanosis;muscles-grossly intact. OA. Dressing over the left hip incision site. Prevena INVESTIGATIONS, reviewed in the clinical context: May 06: White count 7.4 hemoglobin 7.1 May 04: White count 9.6 hemoglobin 8.6 platelets 184 potassium 4 creatinine 1.09 March 27, 2024: White count 6.2 hemoglobin 11.4 platelets 314 potassium 3.9 BUN 30.3 creatinine 1.6 Assessment plan: -Left total hip arthroplasty anterior approach Aspirin for DVT prophylaxis. Pain controlled. IV cefazolin for infection prophylaxis -Essential hypertension. Currently blood pressure running on the lower side. Resume Toprol-XL. Stop amlodipine. Resume valsartan when morning blood pressure systolic equal to greater than 140 -Acute postprocedure blood loss anemia expected from surgery IV Ferrlecit x 2 doses. Oral ferrous sulfate -Primary osteoarthritis Pain medications as needed -GERD PPI -Hypothyroid Synthroid 25 mcg a day -Anxiety and depression Paxil. Xanax. Abilify. -COPD and a prior smoker Symbicort 1 puff twice daily. Albuterol as needed -Hyperlipidemia Zocor 20 mg nightly -Suspect chronic kidney disease stage III from nephrosclerosis Note that patient takes Motrin and NSAIDs at home IV fluids. Repeat labs in the morning -Obesity BMI 36.6 Weight loss measures Discussed with patient Thank you Dr. Beth. Past Medical History Past Medical History: COPD, Fibromyalgia, GERD/Reflux, Hyperlipidemia, Hypertension, Osteoarthritis (OA), Thyroid Disorder Additional Past Medical History / Comment(s): "suppose to sleep with oxygen @ 1 L NC but I don't use it.",idris lower ext edema, IBS. "I have a little leaking in a heart valve-not sure which one," tilt table test 2022 History of Any Multi-Drug Resistant Organisms: None Reported Past Surgical History: Breast Surgery, Joint Replacement, Tubal Ligation Additional Past Surgical History / Comment(s): lumpectomy left breast. Hip replacement surgery 2006. D&C 2007, colonoscopy 2017. Gallbladder 2019. Past Anesthesia/Blood Transfusion Reactions: Previous Problems w/ Anesthesia Additional Past Anesthesia/Blood Transfusion Reaction / Comm: "I get violent when I come out". no problems with prior blood transfusion approx 40 yrs ago Past Psychological History: Anxiety, Depression Smoking Status: Former smoker Past Alcohol Use History: None Reported Additional Past Alcohol Use History / Comment(s): smokes 1 1/2 PPD FOR ABOUT 45 YRS . Quit smoking cigarettes 2021. Past Drug Use History: Marijuana Additional Drug Use History / Comment(s): smokes marijuana weekly
== END 2024-05-06 16:19 | disposition home health service (06) ==
LOC: OR 05:43 → 4SSUR 09:55 → OR 05-06 16:19
PROVIDERS: ATTEND Orthopaedic Surgery
DX: M16.12 Unilateral primary osteoarthritis, left hip (principal); G89.18 Other acute postprocedural pain; I13.10 Hypertensive heart and chronic kidney disease without heart failure, with stage 1 through stage 4 chronic kidney disease, or unspecified chronic kidney disease; N18.30 Chronic kidney disease, stage 3 unspecified; E78.5 Hyperlipidemia, unspecified; J43.9 Emphysema, unspecified; E66.01 Morbid (severe) obesity due to excess calories; Z68.35 Body mass index [BMI] 35.0-35.9, adult; M79.7 Fibromyalgia; K21.9 Gastro-esophageal reflux disease without esophagitis; F41.8 Other specified anxiety disorders; E03.9 Hypothyroidism, unspecified; Z87.891 Personal history of nicotine dependence; Z79.82 Long term (current) use of aspirin; Z79.890 Hormone replacement therapy; Z79.899 Other long term (current) drug therapy; Z79.51 Long term (current) use of inhaled steroids; Z79.1 Long term (current) use of non-steroidal anti-inflammatories (NSAID)
CPT/HCPCS: 94640 ×3; 97116; 97161; 64447; 86900; 86901; 80048; 85025 ×2; 86850; 73501; 27130; C1776; J2250; J1100; J0690 ×2; J2405; J3010; J3490; J2916 ×2; J1885; J1170

== ENCOUNTER → 2024-05-23 | Outpatient (CLI) | payer MEDICARE, OTHER ==
--- NOTE | 2024-05-23 17:10 | US ---
EXAMINATION TYPE: US venous doppler duplex LE DATE OF EXAM: 05/23/2024 4:52 PM COMPARISON: NONE CLINICAL INDICATION: Female, 73 years old with history of I80.9 PHLEBITIS THROMBOPHLEBITIS; Swelling in bilateral legs. Hx of left hip surgery 3 weeks ago. No hx of DVT. Takes baby aspirin daily. Pt has had hx of swelling in bilateral legs and just got off lasix SIDE PERFORMED: Bilateral TECHNIQUE: The lower extremity deep venous system is examined utilizing real time linear array sonog joyce with graded compression, doppler sonography and color-flow sonography. VESSELS IMAGED: Common Femoral Vein Deep Femoral Vein Greater Saphenous Vein * Femoral Vein Popliteal Vein Small Saphenous Vein * Proximal Calf Veins (* superficial vessels) Severely limited exam. Pt could not get out of wheelchair. Left leg slightly limited due to domi a Right Leg: No evidence for DVT in vessels seen Left Leg: No evidence for DVT in vessels seen IMPRESSION: 1. Bilateral lower extremity ultrasound negative thrombosis. 2. There is limitation of the examination discussed above
== END | disposition home or self-care (01) ==
LOC: RADUSWWP 16:22
PROVIDERS: ATTEND Orthopaedic Surgery
DX: I80.9 Phlebitis and thrombophlebitis of unspecified site (principal); R60.9 Edema, unspecified; Z47.1 Aftercare following joint replacement surgery; Z96.642 Presence of left artificial hip joint
CPT/HCPCS: 93970

== ENCOUNTER 2024-05-25 17:31 | Inpatient (IN) | payer MEDICARE, OTHER ==
--- NOTE | 2024-05-25 17:50 | ED ---
Recheck HPI - General Chief Complaint: Recheck/Abnormal Lab/Rx Stated Complaint: Weakness, Abnormal Labs Time Seen by Provider: 05/25/24 17:38 Source: patient, EMS, RN notes reviewed, old records reviewed Mode of arrival: EMS Limitations: no limitations - History of Present Illness Initial Comments: This is a 73-year-old female to the ER for evaluation patient presents today for evaluation of severe abnormal outpatient lab values including anemia significant and severe anemia MD Complaint: abnormal lab (Low hemoglobin) -: hour(s) Returns Today for: Called Because of Abnormal Lab/Test (low hgb) Symptoms Since Prior Visit: no new symptoms (low Hgb) Context: called for abnormal lab result Associated Symptoms: none - Related Data Home Medications Medication Instructions Recorded Confirmed Simvastatin [Zocor] 20 mg PO HS 05/28/17 05/03/24 ALPRAZolam [Xanax] 1 mg PO TID PRN 02/14/23 05/03/24 ARIPiprazole [Abilify] 15 mg PO QAM 02/14/23 05/03/24 Albuterol Sulfate [Albuterol 1 - 2 puff PO RT-Q4H PRN 02/14/23 05/03/24 Sulfate Hfa] Folic Acid 1 mg PO QAM 02/14/23 05/03/24 Metoprolol Succinate [Toprol XL] 50 mg PO HS 02/14/23 05/03/24 PARoxetine HCL [Paxil] 40 mg PO QAM 02/14/23 05/03/24 Valsartan 320 mg PO HS 02/14/23 05/03/24 Budesonide-Formot 160-4.5 Mcg 1 dose INHALATION BID 09/08/23 05/03/24 [Symbicort 160-4.5 Mcg Inhaler] Cholecalciferol [Vitamin D3 (25 50 mcg PO QAM 09/08/23 05/03/24 Mcg = 1000 Iu)] Levothyroxine Sodium [Synthroid] 25 mcg PO QAM 09/08/23 05/03/24 Omeprazole 20 mg PO QAM PRN 09/08/23 05/03/24 Mupirocin 2% Oint [Bactroban 2% 1 applic EA NOSTRIL BID 04/30/24 05/03/24 Oint] Previous Rx's Medication Instructions Recorded Aspirin 81 mg PO BID #60 tab 05/03/24 Diclofenac Sodium [Voltaren] 75 mg PO BID #60 tab 05/03/24 Omeprazole 20 mg PO DAILY #30 tab 05/03/24 Ondansetron [Zofran] 4 mg PO Q6HR PRN #30 tab 05/03/24 Sennosides-Docusate Sodium 1 tab PO BID PRN #60 tablet 05/03/24 [Senokot-S] oxyCODONE HCL/ACETAMINOPHEN 1 tab PO Q4HR PRN #21 tab 05/03/24 [Percocet 7.5-325 mg] Doxycycline Monohydrate [Monodox] 100 mg PO BID #28 cap 05/04/24 Ferrous Sulfate [Iron (65 MG 325 mg PO W/LUNCH #30 tab 05/06/24 Elemental)] Allergies Allergy/AdvReac Type Severity Reaction Status Date / Time No Known Allergies Allergy Verified 05/25/24 17:40 Review of Systems ROS Statement: Those systems with pertinent positive or pertinent negative responses have been documented in the HPI. ROS Other: All systems not noted in ROS Statement are negative. Past Medical History Past Medical History: COPD, Fibromyalgia, GERD/Reflux, Hyperlipidemia, Hypertension, Osteoarthritis (OA), Sleep Apnea/CPAP/BIPAP, Thyroid Disorder Additional Past Medical History / Comment(s): Sleep apnea no CPAP used, IBS. Possible CHF however different doctors differ on this diagnosis. 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 History of Any Multi-Drug Resistant Organisms: None Reported Past Surgical History: Breast Surgery, Joint Replacement, Tubal Ligation Additional Past Surgical History / Comment(s): lumpectomy left breast. Hip replacement surgery 2006. D&C 2007, colonoscopy 2018. Gallbladder 2019. Past Anesthesia/Blood Transfusion Reactions: Previous Problems w/ Anesthesia Additional Past Anesthesia/Blood Transfusion Reaction / Comment(s): "i get violent when I come out" Past Psychological History: Anxiety, Depression Smoking Status: Former smoker Past Alcohol Use History: None Reported Past Drug Use History: Marijuana - Past Family History Father Family Medical History: Myocardial Infarction ([place]) Mother Family Medical History: Cancer Additional Family Medical History / Comment(s): Cervical cancer. Sister(s) Family Medical History: Diabetes Mellitus General Exam Limitations: no limitations General appearance: alert, in no apparent distress Head exam: Present: atraumatic, normocephalic, normal inspection Eye exam: Present: normal appearance, PERRL, EOMI. Absent: scleral icterus, conjunctival injection, periorbital swelling ENT exam: Present: normal exam, mucous membranes moist Neck exam: Present: normal inspection. Absent: tenderness, meningismus, lymphadenopathy Respiratory exam: Present: normal lung sounds bilaterally. Absent: respiratory distress, wheezes, rales, rhonchi, stridor Cardiovascular Exam: Present: regular rate, normal rhythm, normal heart sounds. Absent: systolic murmur, diastolic murmur, rubs, gallop, clicks GI/Abdominal exam: Present: soft, normal bowel sounds. Absent: distended, tenderness, guarding, rebound, rigid Extremities exam: Present: normal inspection, full ROM, normal capillary refill. Absent: tenderness, pedal edema, joint swelling, calf tenderness Back exam: Present: normal inspection Neurological exam: Present: alert, oriented X3, CN II-XII intact Psychiatric exam: Present: normal affect, normal mood Skin exam: Present: warm, dry, intact, normal color. Absent: rash Course Vital Signs 05/25/24 05/25/24 05/25/24 17:33 20:47 20:57 Temperature 98.8 F 98.6 F 98.4 F Pulse Rate 74 67 63 Respiratory 17 18 18 Rate Blood Pressure 132/56 134/53 139/51 O2 Sat by Pulse 99 100 95 Oximetry 05/25/24 21:17 Temperature 98.0 F Pulse Rate 61 Respiratory 18 Rate Blood Pressure 139/51 O2 Sat by Pulse 100 Oximetry - Reevaluation(s) Reevaluation #1: 05/25/24 20:28 Records reviewed Reevaluation #2: 05/25/24 20:28 Symptoms are unchanged Reevaluation #3: 05/25/24 20:28 Patient informed of results questions answered Reevaluation #4: Was pt. sent in by a medical professional or institution (, PA, HELP DESK ANALYST, urgent care, hospital, or group home...) When possible be specific @ -no Did you speak to anyone other than the patient for history (EMS, parent, family, police, friend...)? What history was obtained from this source @ -no Did you review nursing and triage notes (agree or disagree)? Why? @ -agree Are old charts reviewed (outside hosp., previous admission, EMS record, old EKG, old radiological studies, urgent care reports/EKG's, group home records)? Report findings @ -yes Differential Diagnosis (chest pain, altered mental status, abdominal pain women, abdominal pain men, vaginal bleeding, weakness, fever, dyspnea, syncope, headache, dizziness, GI bleed, back pain, seizure, CVA, palpatations, mental health, musculoskeletal)? @ -prior EKG interpreted by me (3pts min.). @ -yes X-rays interpreted by me (1pt min.). @ -yes negative for acute disease CT interpreted by me (1pt min.). @ -no U/S interpreted by me (1pt. min.). @ -no What testing was considered but not performed or refused? (CT, X-rays, U/S, labs)? Why? @ -none What meds were considered but not given or refused? Why? @ -none Did you discuss the management of the patient with other professionals (professionals i.e. , PA, HELP DESK ANALYST, lab, RT, psych nurse, social service director, rn primary care, teacher, intelligence officer basic, supervisor case loading)? Give summary @ -no Was smoking cessation discussed for >3mins.? @ -no Was critical care preformed (if so, how long)? @ -no Were there social determinants of health that impacted care today? How? (Homelessness, low income, unemployed, alcoholism, drug addiction, transpor tation, low edu. Level, literacy, decrease access to med. care, usp, rehab)? @ -none Was there de-escalation of care discussed even if they declined (Discuss DNR or withdrawal of care, Hospice)? DNR status @ -no What co-morbidities impacted this encounter? (DM, HTN, Smoking, COPD, CAD, Cancer, CVA, ARF, Chemo, Hep., AIDS, mental health diagnosis, sleep apnea, morbid obesity)? @ -none Was patient admitted / discharged? Hospital course, mention meds given and route, prescriptions, significant lab abnormalities, going to OR and other pertinent info. @ - Undiagnosed new problem with uncertain prognosis? @ -no Drug Therapy requiring intensive monitoring for toxicity (Heparin, Nitro, Insuli n, Cardizem)? @ -no Were any procedures done? @ -no Diagnosis/symptom? @ - Acute, or Chronic, or Acute on Chronic? @ -Acute Uncomplicated (without systemic symptoms) or Complicated (systemic symptoms)? @ -Complicated Side effects of treatment? @ -no Exacerbation, Progression, or Severe Exacerbation? @ -exacerbation Poses a threat to life or bodily function? How? (Chest pain, [place], [place], pneumonia, PE, COPD, DKA, ARF, appy, cholecystitis, CVA, Diverticulitis, Homicidal, Suicidal, threat to staff... and all critical care pts) @ -yes Reevaluation #5: Differential GI Bleed: Esophageal varices, aortoenteric fistula, Priscila-Keller, gastritis, peptic ulcer disease, diverticulosis, inflammatory bowel disease, hemorrhoids, fissure, colitis, malignancy, Meckels diverticulum, this is not meant to be an all- inclusive list. - Consultations Consultation #1: Sound who agrees to admit this patient with surgical evaluation Consultation #2: Spoke with general surgery for possible GI bleed Medical Decision Making - Medical Decision Making 1 female to ER for severely low hemoglobin. Patient was sent in for abnormal outpatient lab test hemoglobin and patient will be admitted for transfusion - Lab Data Result diagrams: 05/25/24 17:40 05/25/24 17:40 Lab Results 05/25/24 05/25/24 05/25/24 Range/Units 17:40 17:40 17:40 WBC 6.3 (3.8-10.6) k/uL RBC 1.72 L (3.80-5.40) m/uL Hgb 5.3 L* D (11.4-16.0) gm/dL Hct 17.7 L* (34.0-46.0) % MCV 103.1 H D (80.0-100.0) fL MCH 30.6 (25.0-35.0) pg MCHC 29.7 L (31.0-37.0) g/dL RDW 19.3 H (11.5-15.5) % Plt Count 226 (150-450) k/uL MPV 10.4 Neutrophils % 52 % Lymphocytes % 35 % Monocytes % 8 % Eosinophils % 3 % Basophils % 0 % Neutrophils # 3.3 (1.3-7.7) k/uL Lymphocytes # 2.2 (1.0-4.8) k/uL Monocytes # 0.5 (0-1.0) k/uL Eosinophils # 0.2 (0-0.7) k/uL Basophils # 0.0 (0-0.2) k/uL Manual Slide Review Performed Polychromasia Present Hypochromasia Marked Anisocytosis Slight Macrocytosis Moderate PT (10.0-12.5) sec INR (<1.2) APTT (22.0-30.0) sec Sodium 143 (137-145) mmol/L Potassium 4.4 (3.5-5.1) mmol/L Chloride 113 H (98-107) mmol/L Carbon Dioxide 23 (22-30) mmol/L Anion Gap 7 mmol/L BUN 24 H (7-17) mg/dL Creatinine 1.03 (0.52-1.04) mg/dL Est GFR (CKD-EPI)AfAm 63 (>60 ml/min/1.73 sqM) Est GFR (CKD-EPI)NonAf 55 (>60 ml/min/1.73 sqM) Glucose 89 (74-99) mg/dL Plasma Lactic Acid Ousmane 1.7 (0.7-2.0) mmol/L Calcium 8.4 (8.4-10.2) mg/dL Phosphorus 4.5 (2.5-4.5) mg/dL Magnesium 1.6 (1.6-2.3) mg/dL Total Bilirubin 0.6 (0.2-1.3) mg/dL AST 37 H (14-36) U/L ALT 17 (4-34) U/L Alkaline Phosphatase 78 (38-126) U/L Troponin I (0.000-0.034) ng/mL Total Protein 5.6 L (6.3-8.2) g/dL Albumin 3.2 L (3.5-5.0) g/dL Stool Occult Blood (Negative) Blood Type Blood Type Recheck Bld Type Recheck Status Antibody Screen Crossmatch Spec Expiration Date 05/25/24 05/25/24 05/25/24 Range/Units 17:40 17:40 19:39 WBC (3.8-10.6) k/uL RBC (3.80-5.40) m/uL Hgb (11.4-16.0) gm/dL Hct (34.0-46.0) % MCV (80.0-100.0) fL MCH (25.0-35.0) pg MCHC (31.0-37.0) g/dL RDW (11.5-15.5) % Plt Count (150-450) k/uL MPV Neutrophils % % Lymphocytes % % Monocytes % % Eosinophils % % Basophils % % Neutrophils # (1.3-7.7) k/uL Lymphocytes # (1.0-4.8) k/uL Monocytes # (0-1.0) k/uL Eosinophils # (0-0.7) k/uL Basophils # (0-0.2) k/uL Manual Slide Review Polychromasia Hypochromasia Anisocytosis Macrocytosis PT 11.6 (10.0-12.5) sec INR 1.1 (<1.2) APTT 20.5 L (22.0-30.0) sec Sodium (137-145) mmol/L Potassium (3.5-5.1) mmol/L Chloride (98-107) mmol/L Carbon Dioxide (22-30) mmol/L Anion Gap mmol/L BUN (7-17) mg/dL Creatinine (0.52-1.04) mg/dL Est GFR (CKD-EPI)AfAm (>60 ml/min/1.73 sqM) Est GFR (CKD-EPI)NonAf (>60 ml/min/1.73 sqM) Glucose (74-99) mg/dL Plasma Lactic Acid Ousmane (0.7-2.0) mmol/L Calcium (8.4-10.2) mg/dL Phosphorus (2.5-4.5) mg/dL Magnesium (1.6-2.3) mg/dL Total Bilirubin (0.2-1.3) mg/dL AST (14-36) U/L ALT (4-34) U/L Alkaline Phosphatase (38-126) U/L Troponin I <0.012 (0.000-0.034) ng/mL Total Protein (6.3-8.2) g/dL Albumin (3.5-5.0) g/dL Stool Occult Blood (Negative) Blood Type B Positive Blood Type Recheck B Pos Bld Type Recheck Status No Antibody Screen NEGATIVE Crossmatch See Detail Spec Expiration Date 05/28/2024 - 233905/25/24 05/25/24 Range/Units 20:15 20:45 WBC (3.8-10.6) k/uL RBC (3.80-5.40) m/uL Hgb (11.4-16.0) gm/dL Hct (34.0-46.0) % MCV (80.0-100.0) fL MCH (25.0-35.0) pg MCHC (31.0-37.0) g/dL RDW (11.5-15.5) % Plt Count (150-450) k/uL MPV Neutrophils % % Lymphocytes % % Monocytes % % Eosinophils % % Basophils % % Neutrophils # (1.3-7.7) k/uL Lymphocytes # (1.0-4.8) k/uL Monocytes # (0-1.0) k/uL Eosinophils # (0-0.7) k/uL Basophils # (0-0.2) k/uL Manual Slide Review Polychromasia Hypochromasia Anisocytosis Macrocytosis PT (10.0-12.5) sec INR (<1.2) APTT (22.0-30.0) sec Sodium (137-145) mmol/L Potassium (3.5-5.1) mmol/L Chloride (98-107) mmol/L Carbon Dioxide (22-30) mmol/L Anion Gap mmol/L BUN (7-17) mg/dL Creatinine (0.52-1.04) mg/dL Est GFR (CKD-EPI)AfAm (>60 ml/min/1.73 sqM) Est GFR (CKD-EPI)NonAf (>60 ml/min/1.73 sqM) Glucose (74-99) mg/dL Plasma Lactic Acid Ousmane (0.7-2.0) mmol/L Calcium (8.4-10.2) mg/dL Phosphorus (2.5-4.5) mg/dL Magnesium (1.6-2.3) mg/dL Total Bilirubin (0.2-1.3) mg/dL AST (14-36) U/L ALT (4-34) U/L Alkaline Phosphatase (38-126) U/L Troponin I <0.012 (0.000-0.034) ng/mL Total Protein (6.3-8.2) g/dL Albumin (3.5-5.0) g/dL Stool Occult Blood Negative (Negative) Blood Type Blood Type Recheck Bld Type Recheck Status Antibody Screen Crossmatch Spec Expiration Date - EKG Data -: EKG Interpreted by Me (EKG is sinus 74 AR 139 QRS 86 QTc 410) Disposition Clinical Impression: Anemia Disposition: ADMITTED IP TO THIS HOSP Condition: Serious Is patient prescribed a controlled substance at d/c from ED?: No Referrals: Arron Sherstha MD [Primary Care Provider] - 1-2 days
[2024-05-25 18:41] LABS: Anisocytosis Slight; Basophils % (A) 0 %; Eosinophils # (A) 0.2 k/uL (0-0.7); Eosinophils % (A) 3 %; Hypochromasia Marked; Lymphocytes # (A) 2.2 k/uL (1.0-4.8); Lymphocytes % (A) 35 %; MCH 30.6 pg (25.0-35.0); MCHC 29.7 g/dL (31.0-37.0); MCV 103.1 fL (80.0-100.0); Macrocytosis Moderate; Mean Platelet Volume 10.4; Monocytes # (A) 0.5 k/uL (0-1.0); Monocytes % (A) 8 %; Neutrophils # (A) 3.3 k/uL (1.3-7.7); Neutrophils % (A) 52 %; Platelet Count 226 k/uL (150-450); RBC 1.72 m/uL (3.80-5.40); RDW 19.3 % (11.5-15.5); WBC 6.3 k/uL (3.8-10.6)
[2024-05-25 18:45] LABS: HCT 17.7 % (34.0-46.0); HGB 5.3 gm/dL (11.4-16.0)
[2024-05-25 19:02] LABS: ALT 17 U/L (4-34); African American GFR (CKD) 63 (>60 ml/min/1.73 sqM); Anion Gap 7 mmol/L; Blood Urea Nitrogen 24 mg/dL (7-17); Calcium 8.4 mg/dL (8.4-10.2); Carbon Dioxide 23 mmol/L (22-30); Chloride 113 mmol/L (98-107); Glucose 89 mg/dL (74-99); Non-African American GFR(CKD) 55 (>60 ml/min/1.73 sqM); Sodium 143 mmol/L (137-145); Total Bilirubin 0.6 mg/dL (0.2-1.3)
[2024-05-25 19:12] LABS: AST 37 U/L (14-36); Albumin 3.2 g/dL (3.5-5.0); Alkaline Phosphatase 78 U/L (38-126); Magnesium 1.6 mg/dL (1.6-2.3); Phosphorus 4.5 mg/dL (2.5-4.5); Potassium 4.4 mmol/L (3.5-5.1); Total Protein 5.6 g/dL (6.3-8.2)
[2024-05-25] MEDS: SODIUM CHLORIDE 0.9% 1,000 ML IV STA (19:26)
[2024-05-25 19:43] LABS: Polychromasia Present
[2024-05-25 20:07] LABS: INR 1.1 (<1.2); Partial Thromboplastin Time 20.5 sec (22.0-30.0); Prothrombin Time 11.6 sec (10.0-12.5)
[2024-05-25] MEDS ORDERED: MORPHINE SULFATE 4 MG/ML SYRINGE IV PRN (20:18)
[2024-05-25] MEDS ORDERED: NALOXONE 0.4 MG/ML 1 ML VIAL IV PRN (20:18)
[2024-05-25] MEDS ORDERED: ONDANSETRON 4 MG/2 ML VIAL IVP PRN (20:18)
[2024-05-26] MEDS ORDERED: PANTOPRAZOLE 40 MG TABLET PO PRN (01:56)
--- NOTE | 2024-05-26 02:08 | P.HPIM ---
History of Present Illness H&P Date: 05/26/24 Chief Complaint: Low Hemoglobin Patient is a 73-year-old female with COPD, hypertension, osteoarthritis, hypothyroidism, IBS, 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 Patient was seen by her PCP via home visit 2 days ago because she has been feeling weak, tired, short of breath, and lightheaded since 4 days. Her primary care provider took her blood sample for the blood reevaluation. Patient received a call from the lab today and advised her to seek urgent medical evaluation for her critically low hemoglobin level. She reports no previous history of low hemoglobin. She denies any fall episode. Patient denies any abdominal pain and bloody stool. She does, however, reports dark-colored stool since starting ferrous sulfate 325 mg p.o. 6 months ago. She denies noticing bleeding anywhere. Patient reports using pain medication such as Voltaren 75 mg on as-needed basis. Patient had a left total hip replacement without any complication on May 03. Postoperative recovery has been unremarkable. Patient is able to self ambulate without any external support. Patient does report bilateral lower extremity edema is ongoing 5 to 6 months. Per patient, her cardiac evaluation 2 months ago was unremarkable. Patient denies any vaginal bleeding, discharge, pain. She is postmenopausal since age 57 with no previous episodes of abnormal vaginal bleeding. Patient had a colonoscopy 4 years ago and was unremarkable Patient reports significant weight loss of 40 pounds in 2 months associated with poor appetite. Although she reports that her appetite is back to baseline. Her EKG report in the ER shows heart rate of 74 bpm. Low QRS voltage in precordial leads. QTc is 410 not prolonged. Normal sinus rhythm Laboratory evaluation show WBC 6.3, hemoglobin 5.3, hematocrit 17.7, MCV 103.1, APTT 10.5, sodium 143, potassium 4.4, chloride 113, bicarb 23, BUN 24, creatinine 1.03, EGFR 55, glucose 89, AST 37, alkaline phosphatase 78, troponin I less than 0.012, stool occult blood negative. Vitals: Tmax 97.0, heart rate 60, respiration rate 18, blood pressure 142/51, oxygen saturation 100% on 2 L nasal cannula. Review of systems: Pertinent positives and negatives as discussed in HPI, a complete review of systems was performed and all other systems are negative. Social history: Tobacco: Quit 3 years ago; 1 to 2 packs/day x 30 years Alcohol: None Recreational drugs: None Travel: None Occupation: None Family History: Noncontributory Physical examination: Vital signs reviewed General: non toxic, no distress, appears at stated age, normal weight Derm: no unusual rashes/lesions, warm Head: atraumatic, normocephalic, symmetric Eyes: EOMI, no lid lag, anicteric sclera, pupils equal round reactive to light ENT: Nose and ears atraumatic Neck: No cervical lymphadenopathy, trachea midline, supple Mouth: no lip lesion, mucus membranes moist Cardiovascular: S1S2 reg, no murmur, positive dorsalis pedis pulse bilateral, grade 2 bilateral pedal edema Lungs: CTA bilateral, no rhonchi, no rales, no accessory muscle use Abdominal: soft, nontender to palpation, no guarding Ext: muscle strength 5 out of 5 in all 4 extremities grossly, no gross muscle atrophy, no contractures, Neuro: CN II-XI grossly intact, no gross focal neuro deficits Psych: Alert, oriented, appropriate affect Assessment/Plan: 73-year-old female with hypertension, COPD, osteoarthritis, hypothyroidism, IBS, status post left total hip replacement presented to the ER with severe anemia and low hemoglobin. 1. Severe macrocytic anemia, unknown etiology Hemoglobin 5.3, hematocrit 17.7 Patient was transfused 3U of packed RBC with goal of more than 7.0 g/dL of hemoglobin Continue to monitor hemoglobin level Continue to monitor vitals continue on IV normal saline 20 cc/h Consulted general surgery for possible EGD/Colonoscopy Fall precautions Continue monitoring troponin I Continue oxygen administration 2 L via nasal *Ordered SCDs 2. Macrocytosis MCV 103.1 likely due to poor nutritional diet Check RBC folate and vitamin B12 3. Elevated BUN, suspected due to occult GI bleed Stool occult blood test is negative BUN 24, creatinine 1.03, EGFR 55 Continue to monitor BUN and creatinine 4. Low aPTT PT one 1.6, INR 1.1, APTT 20.5 Continue to monitor APTT. *Chronic conditions: COPD, hypertension, osteoarthritis, GERD, IBS, hypothyroidism Resume home medication Symbicort, simvastatin, valsartan, omeprazole DVT prophylaxis: Mechanical secondary to low hemoglobin The patient is admitted with an anticipated greater than 2 midnight stay for evaluation of anemia CODE STATUS: Full Code Discussed with: Patient Anticipated discharge place: Home Past Medical History Past Medical History: COPD, Fibromyalgia, GERD/Reflux, Hyperlipidemia, Hypertension, Osteoarthritis (OA), Sleep Apnea/CPAP/BIPAP, Thyroid Disorder Additional Past Medical History / Comment(s): Sleep apnea no CPAP used, IBS. Possible CHF however different doctors differ on this diagnosis. 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 History of Any Multi-Drug Resistant Organisms: None Reported Past Surgical History: Breast Surgery, Joint Replacement, Tubal Ligation Additional Past Surgical History / Comment(s): lumpectomy left breast. Hip replacement surgery 2006. D&C 2007, colonoscopy 2018. Gallbladder 2019. Past Anesthesia/Blood Transfusion Reactions: Previous Problems w/ Anesthesia Additional Past Anesthesia/Blood Transfusion Reaction / Comment(s): "i get violent when I come out" Past Psychological History: Anxiety, Depression Smoking Status: Former smoker Past Alcohol Use History: None Reported Past Drug Use History: Marijuana - Past Family History Father Family Medical History: Myocardial Infarction ([place]) Mother Family Medical History: Cancer Additional Family Medical History / Comment(s): Cervical cancer. Sister(s) Family Medical History: Diabetes Mellitus Medications and Allergies Home Medications Medication Instructions Recorded Confirmed Type Simvastatin [Zocor] 20 mg PO HS 05/28/17 05/03/24 History ALPRAZolam [Xanax] 1 mg PO TID PRN 02/14/23 05/03/24 History ARIPiprazole [Abilify] 15 mg PO QAM 02/14/23 05/03/24 History Albuterol Sulfate [Albuterol 1 - 2 puff PO RT-Q4H PRN 02/14/23 05/03/24 History Sulfate Hfa] Folic Acid 1 mg PO QAM 02/14/23 05/03/24 History Metoprolol Succinate [Toprol XL] 50 mg PO HS 02/14/23 05/03/24 History PARoxetine HCL [Paxil] 40 mg PO QAM 02/14/23 05/03/24 History Valsartan 320 mg PO HS 02/14/23 05/03/24 History Budesonide-Formot 160-4.5 Mcg 1 dose INHALATION BID 09/08/23 05/03/24 History [Symbicort 160-4.5 Mcg Inhaler] Cholecalciferol [Vitamin D3 (25 50 mcg PO QAM 09/08/23 05/03/24 History Mcg = 1000 Iu)] Levothyroxine Sodium [Synthroid] 25 mcg PO QAM 09/08/23 05/03/24 History Omeprazole 20 mg PO QAM PRN 09/08/23 05/03/24 History Mupirocin 2% Oint [Bactroban 2% 1 applic EA NOSTRIL BID 04/30/24 05/03/24 History Oint] Aspirin 81 mg PO BID #60 tab 05/03/24 Rx Diclofenac Sodium [Voltaren] 75 mg PO BID #60 tab 05/03/24 Rx Omeprazole 20 mg PO DAILY #30 tab 05/03/24 Rx Ondansetron [Zofran] 4 mg PO Q6HR PRN #30 tab 05/03/24 Rx Sennosides-Docusate Sodium 1 tab PO BID PRN #60 tablet 05/03/24 Rx [Senokot-S] oxyCODONE HCL/ACETAMINOPHEN 1 tab PO Q4HR PRN #21 tab 05/03/24 Rx [Percocet 7.5-325 mg] Doxycycline Monohydrate [Monodox] 100 mg PO BID #28 cap 05/04/24 Rx Ferrous Sulfate [Iron (65 MG 325 mg PO W/LUNCH #30 tab 05/06/24 Rx Elemental)] Allergies Allergy/AdvReac Type Severity Reaction Status Date / Time No Known Allergies Allergy Verified 05/25/24 17:40 Physical Exam Vitals: Vital Signs Temp Pulse Resp BP Pulse Ox 05/26/24 01:29 97.0 F L 18 L 18 142/51 100 05/26/24 01:15 97.0 F L 60 12 144/54 100 05/25/24 23:30 97.2 F L 60 18 143/57 05/25/24 23:16 97.0 F L 63 18 141/51 100 05/25/24 23:10 97.0 F L 63 18 141/51 100 05/25/24 23:04 98.0 F 67 18 158/64 100 05/25/24 22:50 67 18 124/45 100 05/25/24 21:17 98.0 F 61 18 139/51 100 05/25/24 20:57 98.4 F 63 18 139/51 95 05/25/24 20:47 98.6 F 67 18 134/53 100 05/25/24 17:33 98.8 F 74 17 132/56 99 Intake and Output 05/25/24 05/25/24 05/26/24 14:59 22:59 06:59 Intake Total 310 310 Balance 310 310 Intake: Blood Product 310 310 Rc As-1 Unit 310 [id number] Rc As-1 Unit 310 [id number] Rc As-1 Unit 0 [id number] Other: Weight 99.79 kg Results CBC & Chem 7: 05/25/24 17:40 05/25/24 17:40 Labs: Abnormal Lab Results - Last 24 Hours (Table) 05/25/24 05/25/24 05/25/24 Range/Units 17:40 17:40 17:40 RBC 1.72 L (3.80-5.40) m/uL Hgb 5.3 L* D (11.4-16.0) gm/dL Hct 17.7 L* (34.0-46.0) % MCV 103.1 H D (80.0-100.0) fL MCHC 29.7 L (31.0-37.0) g/dL RDW 19.3 H (11.5-15.5) % APTT (22.0-30.0) sec Chloride 113 H (98-107) mmol/L BUN 24 H (7-17) mg/dL AST 37 H (14-36) U/L Total Protein 5.6 L (6.3-8.2) g/dL Albumin 3.2 L (3.5-5.0) g/dL Crossmatch See Detail 05/25/24 Range/Units 19:39 RBC (3.80-5.40) m/uL Hgb (11.4-16.0) gm/dL Hct (34.0-46.0) % MCV (80.0-100.0) fL MCHC (31.0-37.0) g/dL RDW (11.5-15.5) % APTT 20.5 L (22.0-30.0) sec Chloride (98-107) mmol/L BUN (7-17) mg/dL AST (14-36) U/L Total Protein (6.3-8.2) g/dL Albumin (3.5-5.0) g/dL Crossmatch
[2024-05-26] MEDS: SYMBICORT 160-4.5 MCG INHALER INHALATION SCH (02:10)
[2024-05-26] MEDS: SODIUM CHLORIDE 0.9% 1,000 ML IV SCH (03:32)
[2024-05-26 07:01] LABS: ALT 17 U/L (4-34); African American GFR (CKD) 77 (>60 ml/min/1.73 sqM); Albumin 2.9 g/dL (3.5-5.0); Anion Gap 8 mmol/L; Blood Urea Nitrogen 20 mg/dL (7-17); Calcium 8.4 mg/dL (8.4-10.2); Carbon Dioxide 19 mmol/L (22-30); Chloride 116 mmol/L (98-107); Glucose 85 mg/dL (74-99); Non-African American GFR(CKD) 67 (>60 ml/min/1.73 sqM); Sodium 143 mmol/L (137-145); Total Bilirubin 0.7 mg/dL (0.2-1.3)
[2024-05-26 07:03] LABS: Anisocytosis Moderate; Basophils % (A) 0 %; Eosinophils # (A) 0.3 k/uL (0-0.7); Eosinophils % (A) 4 %; HGB 8.6 gm/dL (11.4-16.0); Hypochromasia Moderate; Lymphocytes # (A) 2.2 k/uL (1.0-4.8); Lymphocytes % (A) 30 %; MCHC 31.9 g/dL (31.0-37.0); Macrocytosis Slight; Mean Platelet Volume 10.7; Monocytes # (A) 0.6 k/uL (0-1.0); Monocytes % (A) 9 %; Neutrophils # (A) 3.8 k/uL (1.3-7.7); Neutrophils % (A) 54 %; Platelet Count 211 k/uL (150-450); Poikilocytosis Moderate; RBC 2.87 m/uL (3.80-5.40); WBC 7.1 k/uL (3.8-10.6)
[2024-05-26 07:04] LABS: MCV 93.9 fL (80.0-100.0)
[2024-05-26 07:10] LABS: AST 29 U/L (14-36); Alkaline Phosphatase 93 U/L (38-126); Magnesium 1.7 mg/dL (1.6-2.3); Phosphorus 3.9 mg/dL (2.5-4.5); Potassium 3.8 mmol/L (3.5-5.1)
[2024-05-26] MEDS: PANTOPRAZOLE 40 MG/10 ML VIAL IVP SCH (09:28)
[2024-05-26] MEDS ORDERED: SENNOSIDES-DOCUSATE SODIUM 1 EACH TAB PO PRN (09:52)
--- NOTE | 2024-05-26 13:10 | P.GSCN ---
History of Present Illness Consult date: 05/26/24 Reason for Consult: GI bleed History of present illness: 73-year-old female underwent recent anterior left hip replacement 3 to 4 weeks ago. Came to the hospital after feeling weak with low hemoglobin. Hemoglobin was 5.3. 300 cc estimated blood loss at that procedure. Last hemoglobin while inpatient on 05/04 was 7.1. She is back up over 8 after units of blood. She is heme negative. Last colonoscopy in [place] 4 to 5 years ago. States that was normal. No recent blood or melena noted. No abdominal pain. Review of Systems The patient denies any acute changes in vision or hearing, no dysphagia or odyno phagia, no chest pain or shortness of breath, no dysuria or hematuria, no headache, no runny nose, no rectal bleeding or melena, no unexplained weight loss Past Medical History Past Medical History: COPD, Fibromyalgia, GERD/Reflux, Hyperlipidemia, Hypertension, Osteoarthritis (OA), Sleep Apnea/CPAP/BIPAP, Thyroid Disorder Additional Past Medical History / Comment(s): Sleep apnea no CPAP used, IBS. Possible CHF however different doctors differ on this diagnosis. 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 History of Any Multi-Drug Resistant Organisms: None Reported Past Surgical History: Breast Surgery, Joint Replacement, Tubal Ligation Additional Past Surgical History / Comment(s): lumpectomy left breast. Hip replacement surgery 2006. D&C 2007, colonoscopy 2017. Gallbladder 2019. Past Anesthesia/Blood Transfusion Reactions: Previous Problems w/ Anesthesia Additional Past Anesthesia/Blood Transfusion Reaction / Comm: "i get violent when I come out" Past Psychological History: Anxiety, Depression Smoking Status: Former smoker Past Alcohol Use History: None Reported Additional Past Alcohol Use History / Comment(s): smokes 1 1/2 PPD FOR ABOUT 45 YRS . Quit smoking cigarettes 2021. Past Drug Use History: Marijuana - Past Family History Father Family Medical History: Myocardial Infarction ([place]) Mother Family Medical History: Cancer Additional Family Medical History / Comment(s): Cervical cancer. Sister(s) Family Medical History: Diabetes Mellitus Medications and Allergies Home Medications Medication Instructions Recorded Confirmed Type Simvastatin [Zocor] 20 mg PO HS 05/28/17 05/26/24 History ALPRAZolam [Xanax] 1 mg PO TID PRN 02/14/23 05/26/24 History ARIPiprazole [Abilify] 15 mg PO DAILY 02/14/23 05/26/24 History Albuterol Sulfate [Albuterol 1 - 2 puff PO RT-Q4H PRN 02/14/23 05/26/24 History Sulfate Hfa] Folic Acid 1 mg PO DAILY 02/14/23 05/26/24 History Metoprolol Succinate [Toprol XL] 50 mg PO HS 02/14/23 05/26/24 History PARoxetine HCL [Paxil] 40 mg PO DAILY 02/14/23 05/26/24 History Valsartan 320 mg PO HS 02/14/23 05/26/24 History Cholecalciferol [Vitamin D3 (25 50 mcg PO DAILY 09/08/23 05/26/24 History Mcg = 1000 Iu)] Levothyroxine Sodium [Synthroid] 25 mcg PO DAILY 09/08/23 05/26/24 History Mupirocin 2% Oint [Bactroban 2% 1 applic TOPICAL BID 04/30/24 05/26/24 History Oint] Aspirin 81 mg PO BID #60 tab 05/03/24 05/26/24 Rx Diclofenac Sodium [Voltaren] 75 mg PO BID #60 tab 05/03/24 05/26/24 Rx Omeprazole 20 mg PO DAILY #30 tab 05/03/24 05/26/24 Rx Ondansetron [Zofran] 4 mg PO Q6HR PRN #30 tab 05/03/24 05/26/24 Rx Sennosides-Docusate Sodium 1 tab PO BID PRN #60 tablet 05/03/24 05/26/24 Rx [Senokot-S] Ferrous Sulfate [Iron (65 MG 325 mg PO W/LUNCH #30 tab 05/06/24 05/26/24 Rx Elemental)] Doxycycline Hyclate 100 mg PO BID 05/26/24 05/26/24 History Fluconazole [Diflucan] 150 mg PO DIRECTED 05/26/24 05/26/24 History Torsemide [Demadex] 10 mg PO DAILY 05/26/24 05/26/24 History oxyCODONE-APAP 5-325MG [Percocet 1 tab PO BID PRN 05/26/24 05/26/24 History 5-325 mg] Allergies Allergy/AdvReac Type Severity Reaction Status Date / Time No Known Allergies Allergy Verified 05/26/24 08:33 Surgical - Exam Vital Signs Temp Pulse Resp BP Pulse Ox 98.8 F 74 17 132/56 99 05/25/24 17:33 05/25/24 17:33 05/25/24 17:33 05/25/24 17:33 05/25/24 17:33 Physical exam: General: Well-developed, well-nourished HEENT: Normocephalic, sclerae nonicteric Abdomen: Nontender, nondistended Extremities: No edema, left hip incision noted Neuro: Alert and oriented Results - Labs 05/26/24 06:18 05/26/24 06:18 Abnormal Lab Results - Last 24 Hours (Table) 05/25/24 05/25/24 05/25/24 Range/Units 17:40 17:40 17:40 RBC 1.72 L (3.80-5.40) m/uL Hgb 5.3 L* D (11.4-16.0) gm/dL Hct 17.7 L* (34.0-46.0) % MCV 103.1 H D (80.0-100.0) fL MCHC 29.7 L (31.0-37.0) g/dL RDW 19.3 H (11.5-15.5) % APTT (22.0-30.0) sec Chloride 113 H (98-107) mmol/L Carbon Dioxide (22-30) mmol/L BUN 24 H (7-17) mg/dL AST 37 H (14-36) U/L Total Protein 5.6 L (6.3-8.2) g/dL Albumin 3.2 L (3.5-5.0) g/dL Crossmatch See Detail 05/25/24 05/26/24 05/26/24 Range/Units 19:39 06:18 06:18 RBC 2.87 L (3.80-5.40) m/uL Hgb 8.6 L D (11.4-16.0) gm/dL Hct 27.0 L (34.0-46.0) % MCV (80.0-100.0) fL MCHC (31.0-37.0) g/dL RDW 20.0 H (11.5-15.5) % APTT 20.5 L (22.0-30.0) sec Chloride 116 H (98-107) mmol/L Carbon Dioxide 19 L (22-30) mmol/L BUN 20 H (7-17) mg/dL AST (14-36) U/L Total Protein 5.0 L (6.3-8.2) g/dL Albumin 2.9 L (3.5-5.0) g/dL Crossmatch Diabetes panel 05/25/24 05/26/24 Range/Units 17:40 06:18 Sodium 143 143 (137-145) mmol/L Potassium 4.4 3.8 (3.5-5.1) mmol/L Chloride 113 H 116 H (98-107) mmol/L Carbon Dioxide 23 19 L (22-30) mmol/L BUN 24 H 20 H (7-17) mg/dL Creatinine 1.03 0.88 (0.52-1.04) mg/dL Glucose 89 85 (74-99) mg/dL Calcium 8.4 8.4 (8.4-10.2) mg/dL AST 37 H 29 (14-36) U/L ALT 17 17 (4-34) U/L Alkaline Phosphatase 78 93 (38-126) U/L Total Protein 5.6 L 5.0 L (6.3-8.2) g/dL Albumin 3.2 L 2.9 L (3.5-5.0) g/dL Calcium panel 05/25/24 05/26/24 Range/Units 17:40 06:18 Calcium 8.4 8.4 (8.4-10.2) mg/dL Phosphorus 4.5 3.9 (2.5-4.5) mg/dL Albumin 3.2 L 2.9 L (3.5-5.0) g/dL Pituitary panel 05/25/24 05/26/24 Range/Units 17:40 06:18 Sodium 143 143 (137-145) mmol/L Potassium 4.4 3.8 (3.5-5.1) mmol/L Chloride 113 H 116 H (98-107) mmol/L Carbon Dioxide 23 19 L (22-30) mmol/L BUN 24 H 20 H (7-17) mg/dL Creatinine 1.03 0.88 (0.52-1.04) mg/dL Glucose 89 85 (74-99) mg/dL Calcium 8.4 8.4 (8.4-10.2) mg/dL Adrenal panel 05/25/24 05/26/24 Range/Units 17:40 06:18 Sodium 143 143 (137-145) mmol/L Potassium 4.4 3.8 (3.5-5.1) mmol/L Chloride 113 H 116 H (98-107) mmol/L Carbon Dioxide 23 19 L (22-30) mmol/L BUN 24 H 20 H (7-17) mg/dL Creatinine 1.03 0.88 (0.52-1.04) mg/dL Glucose 89 85 (74-99) mg/dL Calcium 8.4 8.4 (8.4-10.2) mg/dL Total Bilirubin 0.6 0.7 (0.2-1.3) mg/dL AST 37 H 29 (14-36) U/L ALT 17 17 (4-34) U/L Alkaline Phosphatase 78 93 (38-126) U/L Total Protein 5.6 L 5.0 L (6.3-8.2) g/dL Albumin 3.2 L 2.9 L (3.5-5.0) g/dL Assessment and Plan (1) Anemia Narrative/Plan: 73-year-old female with anemia. This likely is related to recent surgery rather than GI blood loss. Options of endoscopy discussed with patient. Will await evaluation by orthopedics and see what their thoughts are regarding need for endoscopy as inpatient. Current Visit: Yes Status: Acute Code(s): D64.9 - ANEMIA, UNSPECIFIED SNOMED Code(s): 440776651
[2024-05-26] MEDS: PARoxetine 20 MG TAB PO STA (14:11)
[2024-05-26] MEDS: ALPRAZolam 1 MG TAB PO PRN (14:11)
[2024-05-26] MEDS ORDERED: VALSARTAN 160 MG TAB PO PRN (14:14)
--- NOTE | 2024-05-26 14:20 | P.PN ---
Subjective Progress Note Date: 05/26/24 73-year-old female with COPD, hypertension, osteoarthritis, hypothyroidism, IBS, 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 She reports fatigue, shortness of breath with exertion and positional lightheadedness. She denies BRBPR or vaginal bleeding. She reports dark stools since starting ferrous sulfate supplementation. She reports 40 lb weight loss over the past 2 months associated with poor appetite and oral intake. Last C-scope 4 years ago normal per patient. In the ED she underwent extensive evaluation. BP 132/56, HR 74, RR 17, T 98.8F, 99% on 2L NC. CBC, CMP, Coag panel significant for RBC 1.72, Hg 5.3, Hct 17.7, MCV 103.1, MCHC 29.7, RDW 19.3, APTT 20.5, Cl 113, BUN 24, AST 37, alb 3.2. Mag 1.6. Lactic acid 1.7. Troponins < 0.012 x 2. Stool occult blood negative. EKG sinus rhythm. Patient is admitted for further workup and management. 05/26 Patient was seen and examined. Status post 3 unit PRBC. RN reports 5 run Vtach while patient going to the bathroom. CBC RBC 2.87, Hg 8.6, Hct 27, RDW 20. CMP Cl 116, bicarb 19, BUN 20, alb 2.9. General: non toxic, no distress, appears at stated age Derm: warm, dry Head: atraumatic, normocephalic, symmetric Eyes: EOMI, no lid lag, anicteric sclera Mouth: no lip lesion, mucus membranes moist Cardiovascular: S1S2 reg, no murmur Lungs: CTA bilateral, no rhonchi, no rales , no accessory muscle use Abdominal: soft, nontender to palpation, no guarding, no appreciable organom egaly Ext: no gross muscle atrophy, no edema, no contractures, Left hip surgical scar clean and dry with no signs of hematoma Neuro: no focal neuro deficits Psych: Alert, oriented, appropriate affect Based on my assessment of this patient, this patient meets a high complexity level of care. Acute blood loss anemia: In the setting of left total hip replacement on May 03. Hg on discharge at that time was 7.1. Status post 3 units PRBC. Hold ASA 81 mg PO BID. Obtain iron studies. Sx consulted for GI workup but patient with no acute GI complaints and stool occult negative. Would benefit from GI evaluation outpatient so will start a diet. Repeat CBC tomorrow. Consult Orthopedic Sx given recent THR. NSVT: Repeat K level since AM blood work was hemolyzed. 2g Mag sulfate ordered for Mag of 1.7. Continue Metoprolol 50 mg PO QHS. Telemetry monitoring. Recent Echo was done in 04/2024. Consult Cardiology. COPD not in acute exacerbation Hypertension: Valsartan 320 mg PO QHS. Torsemide 10 mg PO QD. Metoprolol 50 mg PO QHS. Depression and Anxiety: Paxil 40 mg PO QD. Xanax 1 mg PO TID PRN. Abilify 15 mg PO QD. Hypothyroidism: Synthroid 25 mcg PO QD. Dyslipidemia: Zocor 20 mg PO QHS. CODE STATUS: FULL CODE DVT Prophylaxis: SCD GI Prophylaxis: Protonix IV BID Designated medical POA if patient is not able to make medical decisions for themselves: I have reviewed the following contaminated land consultant notes: I have reviewed the results of the following tests: CBC, CMP. I have ordered the following tests: Repeat CBC tomorrow. I have discussed the care of this patient with the following independent hist orian: I have independently interpreted the following test below: I have discussed the management of this patient with the following physician: Objective - Vital Signs Vital signs: Vital Signs Temp 98.0 F 05/26/24 08:48 Pulse 70 05/26/24 08:48 Resp 18 05/26/24 08:48 BP 147/77 05/26/24 08:48 Pulse Ox 94 L 05/26/24 08:48 FiO2 Intake & Output 05/25/24 05/26/24 05/26/24 18:59 06:59 18:59 Intake Total 930 Balance 930 Weight 99.79 kg 99.79 kg Intake: Blood Product 930 Rc As-1 Unit 310 [id number] Rc As-1 Unit 310 [id number] Rc As-1 Unit 310 [id number] Other: # Voids 1 - Labs CBC & Chem 7: 05/26/24 06:18 05/26/24 06:18 Labs: Abnormal Lab Results - Last 24 Hours (Table) 05/25/24 05/25/24 05/25/24 Range/Units 17:40 17:40 17:40 RBC 1.72 L (3.80-5.40) m/uL Hgb 5.3 L* D (11.4-16.0) gm/dL Hct 17.7 L* (34.0-46.0) % MCV 103.1 H D (80.0-100.0) fL MCHC 29.7 L (31.0-37.0) g/dL RDW 19.3 H (11.5-15.5) % APTT (22.0-30.0) sec Chloride 113 H (98-107) mmol/L Carbon Dioxide (22-30) mmol/L BUN 24 H (7-17) mg/dL AST 37 H (14-36) U/L Total Protein 5.6 L (6.3-8.2) g/dL Albumin 3.2 L (3.5-5.0) g/dL Crossmatch See Detail 05/25/24 05/26/24 05/26/24 Range/Units 19:39 06:18 06:18 RBC 2.87 L (3.80-5.40) m/uL Hgb 8.6 L D (11.4-16.0) gm/dL Hct 27.0 L (34.0-46.0) % MCV (80.0-100.0) fL MCHC (31.0-37.0) g/dL RDW 20.0 H (11.5-15.5) % APTT 20.5 L (22.0-30.0) sec Chloride 116 H (98-107) mmol/L Carbon Dioxide 19 L (22-30) mmol/L BUN 20 H (7-17) mg/dL AST (14-36) U/L Total Protein 5.0 L (6.3-8.2) g/dL Albumin 2.9 L (3.5-5.0) g/dL Crossmatch
[2024-05-26] MEDS: POTASSIUM CHLORIDE ER 20 MEQ TAB.ER PO STA ×2 (14:23→21:30)
[2024-05-26] MEDS: ARIPiprazole 15 MG TAB PO STA (14:26)
[2024-05-26] MEDS: MAGNESIUM SULFATE-D5W PMX 1 GM in DEXTROSE/WATER 1 100ML.BAG IVPB SCH (14:26)
[2024-05-26 14:49] LABS: Anisocytosis Moderate; HCT 27.1 % (34.0-46.0); HGB 8.5 gm/dL (11.4-16.0); Hypochromasia Marked; MCH 29.5 pg (25.0-35.0); MCHC 31.3 g/dL (31.0-37.0); MCV 94.2 fL (80.0-100.0); Macrocytosis Slight; Mean Platelet Volume 9.1; Platelet Count 211 k/uL (150-450); Poikilocytosis Moderate; RBC 2.87 m/uL (3.80-5.40); RDW 20.4 % (11.5-15.5)
[2024-05-26 15:00] LABS: % Iron Saturation 30.99 (12.00-45.00)
[2024-05-26] MEDS ORDERED: VALSARTAN 160 MG TAB PO SCH (21:00)
[2024-05-26] MEDS: METOPROLOL SUCCINATE (ER) 50 MG TAB.ER.24H PO SCH (21:29)
[2024-05-26] MEDS: ATORVASTATIN 10 MG TAB PO SCH (21:30)
[2024-05-27] MEDS: LEVOTHYROXINE 25 MCG TAB PO SCH (06:16)
[2024-05-27 08:42] LABS: African American GFR (CKD) >90 (>60 ml/min/1.73 sqM); Anion Gap 4 mmol/L; Blood Urea Nitrogen 11 mg/dL (7-17); Calcium 8.3 mg/dL (8.4-10.2); Carbon Dioxide 23 mmol/L (22-30); Chloride 113 mmol/L (98-107); Glucose 92 mg/dL (74-99); Magnesium 2.1 mg/dL (1.6-2.3); Non-African American GFR(CKD) 86 (>60 ml/min/1.73 sqM); Sodium 140 mmol/L (137-145)
[2024-05-27 08:43] LABS: Anisocytosis Moderate; HCT 28.1 % (34.0-46.0); HGB 8.7 gm/dL (11.4-16.0); Hypochromasia Marked; MCH 29.6 pg (25.0-35.0); MCV 95.5 fL (80.0-100.0); Macrocytosis Slight; Mean Platelet Volume 10.2; Platelet Count 202 k/uL (150-450); Poikilocytosis Moderate; RBC 2.94 m/uL (3.80-5.40); RDW 20.4 % (11.5-15.5); WBC 6.7 k/uL (3.8-10.6)
[2024-05-27] MEDS: TORSEMIDE 20 MG TAB PO SCH (09:48)
[2024-05-27] MEDS: PARoxetine 20 MG TAB PO SCH (09:48)
[2024-05-27] MEDS: ARIPiprazole 15 MG TAB PO SCH (09:48)
--- NOTE | 2024-05-27 10:15 | XR ---
EXAMINATION TYPE: XR Hip LT and AP Pelvis DATE OF EXAM: 05/27/2024 COMPARISON: None HISTORY: Pain. TECHNIQUE: 2 view left hip with AP pelvis FINDINGS: Femoral component is in place. Acetabular component is present. No acute fracture or disloc ation is evident. Right femoral head articulates with the acetabulum. Joint space is narrowed. IMPRESSION: 1. No acute fracture post left hip replacement.
--- NOTE | 2024-05-27 12:20 | P.CNOR ---
History of Present Illness - HPI Consult date: 05/27/24 History of present illness: This is a 73-year-old female who is admitted for evaluation of anemia. Patient is status post left total hip arthroplasty on 05/03/[address] Beth. Patient states that last week she was not feeling well and was seen as an outpatient. Patient states that she was evaluated in the emergency room for anemia and received a blood transfusion. Patient is seen and evaluated at bedside today and states that she is feeling much better and able to ambulate independently around her room. Patient denies any history of anemia, but states that she has taken iron supplements in the past. Patient denies any injury or significant swelling. Patient denies any recent fever, chills, shortness breath, chest pain, abdominal pain, nausea/vomiting/diarrhea, back pain, numbness, tingling, hematuria, headache, or visual changes, or any other complaints. Review of Systems See HPI. Past Medical History Past Medical History: COPD, Fibromyalgia, GERD/Reflux, Hyperlipidemia, Hypertension, Osteoarthritis (OA), Sleep Apnea/CPAP/BIPAP, Thyroid Disorder Additional Past Medical History / Comment(s): Sleep apnea no CPAP used, IBS. Possible CHF however different doctors differ on this diagnosis. 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 History of Any Multi-Drug Resistant Organisms: None Reported Past Surgical History: Breast Surgery, Joint Replacement, Tubal Ligation Additional Past Surgical History / Comment(s): lumpectomy left breast. Hip replacement surgery 2006. D&C 2007, colonoscopy 2017. Gallbladder 2019. Past Anesthesia/Blood Transfusion Reactions: Previous Problems w/ Anesthesia Additional Past Anesthesia/Blood Transfusion Reaction / Comm: "i get violent when I come out" Past Psychological History: Anxiety, Depression Smoking Status: Former smoker Past Alcohol Use History: None Reported Additional Past Alcohol Use History / Comment(s): smokes 1 1/2 PPD FOR ABOUT 45 YRS . Quit smoking cigarettes 2021. Past Drug Use History: Marijuana - Past Family History Father Family Medical History: Myocardial Infarction ([place]) Mother Family Medical History: Cancer Additional Family Medical History / Comment(s): Cervical cancer. Sister(s) Family Medical History: Diabetes Mellitus Medications and Allergies Home Medications Medication Instructions Recorded Confirmed Type Simvastatin [Zocor] 20 mg PO HS 05/28/17 05/26/24 History ALPRAZolam [Xanax] 1 mg PO TID PRN 02/14/23 05/26/24 History ARIPiprazole [Abilify] 15 mg PO DAILY 02/14/23 05/26/24 History Albuterol Sulfate [Albuterol 1 - 2 puff PO RT-Q4H PRN 02/14/23 05/26/24 History Sulfate Hfa] Folic Acid 1 mg PO DAILY 02/14/23 05/26/24 History Metoprolol Succinate [Toprol XL] 50 mg PO HS 02/14/23 05/26/24 History PARoxetine HCL [Paxil] 40 mg PO DAILY 02/14/23 05/26/24 History Valsartan 320 mg PO HS 02/14/23 05/26/24 History Cholecalciferol [Vitamin D3 (25 50 mcg PO DAILY 09/08/23 05/26/24 History Mcg = 1000 Iu)] Levothyroxine Sodium [Synthroid] 25 mcg PO DAILY 09/08/23 05/26/24 History Mupirocin 2% Oint [Bactroban 2% 1 applic TOPICAL BID 04/30/24 05/26/24 History Oint] Aspirin 81 mg PO BID #60 tab 05/03/24 05/26/24 Rx Diclofenac Sodium [Voltaren] 75 mg PO BID #60 tab 05/03/24 05/26/24 Rx Omeprazole 20 mg PO DAILY #30 tab 05/03/24 05/26/24 Rx Ondansetron [Zofran] 4 mg PO Q6HR PRN #30 tab 05/03/24 05/26/24 Rx Sennosides-Docusate Sodium 1 tab PO BID PRN #60 tablet 05/03/24 05/26/24 Rx [Senokot-S] Ferrous Sulfate [Iron (65 MG 325 mg PO W/LUNCH #30 tab 05/06/24 05/26/24 Rx Elemental)] Doxycycline Hyclate 100 mg PO BID 05/26/24 05/26/24 History Fluconazole [Diflucan] 150 mg PO DIRECTED 05/26/24 05/26/24 History Torsemide [Demadex] 10 mg PO DAILY 05/26/24 05/26/24 History oxyCODONE-APAP 5-325MG [Percocet 1 tab PO BID PRN 05/26/24 05/26/24 History 5-325 mg] Allergies Allergy/AdvReac Type Severity Reaction Status Date / Time No Known Allergies Allergy Verified 05/26/24 08:33 Physical Examination Vital signs are stable. Patient is in no acute distress and is alert and oriented 3. Calf is soft and nontender to palpation. Incision is well-healed without any erythema, drainage or warmth. There is mild swelling of the left thigh and lower extremity. Compartments are soft. Patient has good motion of the left lower extremity. Patient has full foot and ankle motion without pain or difficulty. Sensation intact. Neurovascular status and circulatory status are intact. Results X-rays of the left hip and pelvis dated 05/27/2024 show the total hip arthroplasty in good position and alignment. - Labs Labs: Abnormal Lab Results - Last 24 Hours (Table) 05/26/24 05/26/24 05/26/24 Range/Units 08:11 14:29 14:29 RBC 2.87 L (3.80-5.40) m/uL Hgb 8.5 L (11.4-16.0) gm/dL Hct 27.1 L (34.0-46.0) % RDW 20.4 H (11.5-15.5) % Potassium 3.4 L (3.5-5.1) mmol/L Chloride (98-107) mmol/L Calcium (8.4-10.2) mg/dL Transferrin 173.0 L (204.0-354.0) mg/dL Ferritin 322.0 H (10.0-291.0) ng/mL 05/27/24 05/27/24 Range/Units 08:01 08:01 RBC 2.94 L (3.80-5.40) m/uL Hgb 8.7 L (11.4-16.0) gm/dL Hct 28.1 L (34.0-46.0) % RDW 20.4 H (11.5-15.5) % Potassium (3.5-5.1) mmol/L Chloride 113 H (98-107) mmol/L Calcium 8.3 L (8.4-10.2) mg/dL Transferrin (204.0-354.0) mg/dL Ferritin (10.0-291.0) ng/mL H & H 05/25/24 05/26/2424 Range/Units 17:40 06:18 14:29 Hgb 5.3 L* D 8.6 L D 8.5 L (11.4-16.0) gm/dL Hct 17.7 L* 27.0 L 27.1 L (34.0-46.0) % 05/27/24 Range/Units 08:01 Hgb 8.7 L (11.4-16.0) gm/dL Hct 28.1 L (34.0-46.0) % Coagulation 05/25/24 Range/Units 19:39 INR 1.1 (<1.2) Result Diagrams: 05/27/24 08:01 05/27/24 08:01 Assessment and Plan (1) Anemia Current Visit: Yes Status: Acute Code(s): D64.9 - ANEMIA, UNSPECIFIED SNOMED Code(s): 972430253 (2) Osteoarthritis of left hip Current Visit: No Status: Acute Code(s): M16.12 - UNILATERAL PRIMARY OSTEOARTHRITIS, LEFT HIP SNOMED Code(s): 564346746285163 (3) S/P total hip arthroplasty Current Visit: No Status: Acute Code(s): Z96.649 - PRESENCE OF UNSPECIFIED ARTIFICIAL HIP JOINT SNOMED Code(s): 021336348836 Plan: 1. X-rays are reviewed showing left total hip arthroplasty in good position and alignment. A CT of the left femur is pending. 2. Patient's hemoglobin has improved from 5.3-8.7 today. Patient's vital signs are stable and she is asymptomatic. 3. Appreciate input from internal medicine and general surgery. Per general surgery, there is low suspicion for GI bleed at this time. 4. Further recommendations pending CT results.
--- NOTE | 2024-05-27 12:50 | CT ---
EXAMINATION TYPE: CT femur LT wo con CT DLP: 1303.1 mGycm, Automated exposure control for dose reduction was used. DATE OF EXAM: 05/27/2024 12:25 PM COMPARISON: Left hip radiograph 05/27/2024 CLINICAL INDICATION:Female, 73 years old with history of post op f/u; [facility], post op left hip x3 weeks ago TECHNIQUE: Axial images were obtained of the left hip without the use of IV contrast. Additional cor onal and sagittal reformatted images and soft tissue and bone window were obtained for review. 3-D re construction was created on a separate workstation. FINDINGS: Postsurgical changes from left total hip arthroplasty. Hardware appears intact with appropr iate alignment. No surrounding periprosthetic lucency to suggest loosening. No acute fracture or disl ocation. No sizable joint effusion visualized. No focal muscle atrophy. Left lateral thigh skin thick ening with fat stranding identified. There is an intramuscular fluid collection identified within the anterior lateral left thigh musculature beginning at the inferior aspect of the left hip and extendi ng to just above the knee. This measures 6.1 x 2.7 x 27.8 cm in AP, TV, CC dimensions (series 204, im age 53 and series 205, image 49). No unexpected radiopaque foreign body identified. Colonic diverticulosis without visualized acute diverticulitis. Presacral soft tissue edema identifie d. IMPRESSION: 1. Postsurgical changes from left total hip arthroplasty. Hardware appears intact with appropriate a lignment. 2. Large intramuscular fluid collection within the left anterolateral thigh muscle. No internal gas. Etiologies include seroma with abscess is not excluded. 3. No acute fracture or dislocation.
--- NOTE | 2024-05-27 15:27 | P.PN ---
Subjective Progress Note Date: 05/27/24 CHIEF COMPLAINT: Anemia HISTORY OF PRESENT ILLNESS: Patient reports having black stools but does take iron at home. She does report having chronic nausea. Denies any abdominal pain. She had hip surgery about 3 weeks ago followed by orthopedic service. Patient had a CT scan of the hip that had reported large intramuscular fluid collection within the left anterolateral thigh muscle. no internal gas. Etiologies include seroma with abscess not excluded. Per orthopedic service suspicion for abscess extremely low and they have cleared patient for discharge. Afebrile. WBC 6.7 Hgb stable at 8.7 stool for occult blood was negative PHYSICAL EXAM: VITAL SIGNS: Reviewed. GENERAL: no acute distress. ABDOMEN: Soft. Nondistended. Nontender. Extremities left hip incision clean dry and intact NEUROLOGIC: Alert and oriented. Cranial nerves II through XII grossly intact. ASSESSMENT: 1. Anemia 2. Recent left hip surgery. CT scan hip reporting large intramuscular fluid collection within the left anterior lateral thigh. PLAN: -Anemia likely secondary to recent hip surgery rather than GI blood loss. Recommend outpatient EGD. -Continue to monitor hemoglobin -Continue to monitor for any signs or symptoms of bleeding Physician Hall Manager note has been reviewed by physician. Signing provider agrees with the documented findings, assessment, and plan of care. I have personally seen and examined the patient, reviewed the SLD EDUCATIONAL AIDE /PAs history, exam and MDM and agree with the assessment and plan as written. Based on total visit time, I have performed more than 50% of the visit. As above: CAT scan of the hip shows intramuscular fluid collection. Orthopedics following. Anemia thought to be related to blood loss anemia from recent surgery. Stool negative for occult blood. Patient should still at some point have upper and lower endoscopy given her anemia but this can be performed elect ively in the outpatient setting. Will make appointment for patient to follow-up with me as outpatient. Will sign off. Please reconsult if needed. Objective - Vital Signs Vital signs: Vital Signs Temp 98.9 F 05/27/24 07:21 Pulse 66 05/27/24 07:21 Resp 16 05/27/24 07:21 BP 165/86 05/27/24 07:21 Pulse Ox 97 05/27/24 09:14 FiO2 Intake & Output 05/26/24 05/27/24 05/27/24 18:59 06:59 18:59 Weight 99.79 kg Other: Voiding Method Toilet Toilet Toilet # Voids 1 2 1 - Labs CBC & Chem 7: 05/27/24 08:01 05/27/24 08:01 Labs: Abnormal Lab Results - Last 24 Hours (Table) 05/26/24 05/27/24 05/27/24 Range/Units 08:11 08:01 08:01 RBC 2.94 L (3.80-5.40) m/uL Hgb 8.7 L (11.4-16.0) gm/dL Hct 28.1 L (34.0-46.0) % RDW 20.4 H (11.5-15.5) % Chloride 113 H (98-107) mmol/L Calcium 8.3 L (8.4-10.2) mg/dL Transferrin 173.0 L (204.0-354.0) mg/dL Ferritin 322.0 H (10.0-291.0) ng/mL
[2024-05-27 15:50] VITALS: BMI 37.8
--- NOTE | 2024-05-27 16:23 | P.CRDCN ---
History of Present Illness History of present illness: HISTORY OF PRESENTING ILLNESS This is a pleasant 73-year-old with past medical history significant for COPD, hypertension, osteoarthritis, hypothyroidism, IBS, total left hip replacement May 03 and anemia. She follows in the office with Dr Rodriugez.she unfortunately has not been feeling well since approximately 2 years ago. 2 years ago apparently she weighed 140 pounds and was fairly active however she believes since Covid vaccination she has been feeling fatigued, short of breath, a number of issues. She has had multiple hospitalizations. She had hip replacement however has been fairly debilitated not able walk on her hip. Unfortunately she has been having increasing lower extremity edema. She is seen a number of [employer] revenue [employer] and got a second opinion in terms of diagnosis of heart failure. She has been struggling with increasing lower extremity edema. She had been on diuretics in the past and her creatinine had gotten worse. He has been feeling increasing fatigue, shortness of breath and therefore blood work was performed which showed severe anemia hemoglobin 5.3. She does admit to some dark stools however believes this is related to iron supplementation. she had reported negative hemocullt. Has been on aspirin for orthopedic surgery. she has not had much of an appetite and overall just feels fatigued. Denies any fevers or chills. She does have chronic shortness of breath. she denies any history of coronary artery disease or known congestive heart failure. Cardiology was consult is secondary to reported ventricular tachycardia 5 events. These events were reviewed on telemetry with no significant ventricular tachycardia and only artifact during the episodes marked his ventricular tachycardia. EKG shows normal sinus rhythm, normal axis, low voltage, no significant ST or T wave abnormalities. echocardiogram from 04/26/2024 shows normal left ventricular ejection fraction 55-60% with RVSP 39 and mild mitral regurgitation. ferritin 322, iron 75, TIBC 242, Troponins negative 2, albumin 2.9, total protein 5.0, creatinine 0.7, hemoglobin 8.7. CT lower extremity showed fluid collection may be a seroma around the left thigh REVIEW OF SYSTEMS At the time of my exam: CONSTITUTIONAL: Denies fever or chills. CARDIOVASCULAR: Denies chest pain, +shortness of breath, +orthopnea, PND or palpitations. RESPIRATORY: Denies cough. GASTROINTESTINAL: Denies abdominal pain, diarrhea, constipation, nausea or vomiting. MUSCULOSKELETAL: Denies myalgias. NEUROLOGIC: Denies numbness, tingling or weakness. ENDOCRINE: Denies fatigue, weight change, polydipsia or polyurina. GENITOURINARY: Denies burning, hematuria or urgency with micturation. HEMATOLOGIC: Denies history of anemia or bleeding. PHYSICAL EXAMINATION Vital signs reviewed. CONSTITUTIONAL: No apparent distress. HEENT: Head is normocephalic. Pupils are equal, round. Sclerae anicteric. Mucous membranes of the mouth are moist. No JVD. No carotid bruit. CHEST EXAMINATION: Lungs are clear to auscultation. No chest wall tenderness is noted on palpation or with deep breathing. HEART EXAMINATION: Regular rate and rhythm. S1, S2 heard. No murmurs, gallops or rub. ABDOMEN: Soft, nontender. Positive bowel sounds. EXTREMITIES: 2+ peripheral pulses, 2+ lower extremity edema and no calf tenderness. NEUROLOGIC EXAMINATION: Patient is awake, alert and oriented x3. ASSESSMENT lower extremity edema, most likely component of heart failure plus or minus venous insufficiency plus third spacing from protein calorie malnutrition reported episodes of ventricular tachycardia, only artifact noted on telemetry Low voltage on EKG Failure to thrive, increased weight gain, fatigue History of hypertension severe anemia, no obvious GI bleed. Appears anemia of chronic disease PLAN Patient with multiple medical derangements and has had significant weight gain and worsening functional status over last few years. She blames this on COVID- 19 vaccination. Decrease metoprolol as this may be causing some fatigue Check BNP. She had some issue with kidney injury in the past however appears significantly volume overloaded and change to IV diuretics. Likely some component of third spacing from protein calorie malnutrition. Check sed rate and CRP to evaluate for any inflammatory conditions with additional possible component of anemia chronic disease. CRP had previously been elevated. A few months ago. prior echo showed preserved EF however borderline RVSP 39. No significant ventricular tachycardia noted and continue to monitor on telemetry. Past Medical History Past Medical History: COPD, Fibromyalgia, GERD/Reflux, Hyperlipidemia, Hypertens ion, Osteoarthritis (OA), Sleep Apnea/CPAP/BIPAP, Thyroid Disorder Additional Past Medical History / Comment(s): Sleep apnea no CPAP used, IBS. Possible CHF however different doctors differ on this diagnosis. PAST [employer] HISTORY: She has no history of STDs. History of Any Multi-Drug Resistant Organisms: None Reported Past Surgical History: Breast Surgery, Joint Replacement, Tubal Ligation Additional Past Surgical History / Comment(s): lumpectomy left breast. Hip replacement surgery 2007. D&C 2008, colonoscopy 2018. Gallbladder 2019. Past Anesthesia/Blood Transfusion Reactions: Previous Problems w/ Anesthesia Additional Past Anesthesia/Blood Transfusion Reaction / Comment(s): "i get violent when I come out" Past Psychological History: Anxiety, Depression Smoking Status: Former smoker Past Alcohol Use History: None Reported Additional Past Alcohol Use History / Comment(s): smokes 1 1/2 PPD FOR ABOUT 45 YRS . Quit smoking cigarettes 2021. Past Drug Use History: Marijuana - Past Family History Father Family Medical History: Myocardial Infarction ([place]) Mother Family Medical History: Cancer Additional Family Medical History / Comment(s): Cervical cancer. Sister(s) Family Medical History: Diabetes Mellitus Medications and Allergies Home Medications Medication Instructions Recorded Confirmed Type Simvastatin [Zocor] 20 mg PO HS 05/28/17 05/26/24 History ALPRAZolam [Xanax] 1 mg PO TID PRN 02/14/23 05/26/24 History ARIPiprazole [Abilify] 15 mg PO DAILY 02/14/23 05/26/24 History Albuterol Sulfate [Albuterol 1 - 2 puff PO RT-Q4H PRN 02/14/23 05/26/24 History Sulfate Hfa] Folic Acid 1 mg PO DAILY 02/14/23 05/26/24 History Metoprolol Succinate [Toprol XL] 50 mg PO HS 02/14/23 05/26/24 History PARoxetine HCL [Paxil] 40 mg PO DAILY 02/14/23 05/26/24 History Valsartan 320 mg PO HS 02/14/23 05/26/24 History Cholecalciferol [Vitamin D3 (25 50 mcg PO DAILY 09/08/23 05/26/24 History Mcg = 1000 Iu)] Levothyroxine Sodium [Synthroid] 25 mcg PO DAILY 09/08/23 05/26/24 History Mupirocin 2% Oint [Bactroban 2% 1 applic TOPICAL BID 04/30/24 05/26/24 History Oint] Aspirin 81 mg PO BID #60 tab 05/03/24 05/26/24 Rx Diclofenac Sodium [Voltaren] 75 mg PO BID #60 tab 05/03/24 05/26/24 Rx Omeprazole 20 mg PO DAILY #30 tab 05/03/24 05/26/24 Rx Ondansetron [Zofran] 4 mg PO Q6HR PRN #30 tab 05/03/24 05/26/24 Rx Sennosides-Docusate Sodium 1 tab PO BID PRN #60 tablet 05/03/24 05/26/24 Rx [Senokot-S] Ferrous Sulfate [Iron (65 MG 325 mg PO W/LUNCH #30 tab 05/06/24 05/26/24 Rx Elemental)] Doxycycline Hyclate 100 mg PO BID 05/26/24 05/26/24 History Fluconazole [Diflucan] 150 mg PO DIRECTED 05/26/24 05/26/24 History Torsemide [Demadex] 10 mg PO DAILY 05/26/24 05/26/24 History oxyCODONE-APAP 5-325MG [Percocet 1 tab PO BID PRN 05/26/24 05/26/24 History 5-325 mg] Allergies Allergy/AdvReac Type Severity Reaction Status Date / Time No Known Allergies Allergy Verified 05/26/24 08:33 Physical Exam Vitals: Vital Signs Temp Pulse Resp BP Pulse Ox 05/27/24 09:14 97 05/27/24 07:21 98.9 F 66 16 165/86 94 L 05/27/24 01:03 97.6 F 67 17 143/77 95 05/26/24 20:00 70 18 05/26/24 19:36 97.4 F L 68 14 137/71 95 Intake and Output 05/27/24 05/27/24 05/27/24 06:59 14:59 22:59 Other: Voiding Method Toilet # Voids 2 1 Weight 99.79 kg Results 05/27/24 08:01 05/27/24 08:01 Cardiac Enzymes 05/27/24 05/27/24 Range/Units 08:01 12:01 Troponin I <0.012 <0.012 (0.000-0.034) ng/mL CBC 05/27/24 Range/Units 08:01 WBC 6.7 (3.8-10.6) k/uL RBC 2.94 L (3.80-5.40) m/uL Hgb 8.7 L (11.4-16.0) gm/dL Hct 28.1 L (34.0-46.0) % Plt Count 202 (150-450) k/uL Comprehensive Metabolic Panel 05/27/24 Range/Units 08:01 Sodium 140 (137-145) mmol/L Potassium 4.0 (3.5-5.1) mmol/L Chloride 113 H (98-107) mmol/L Carbon Dioxide 23 (22-30) mmol/L BUN 11 (7-17) mg/dL Creatinine 0.71 (0.52-1.04) mg/dL Glucose 92 (74-99) mg/dL Calcium 8.3 L (8.4-10.2) mg/dL Current Medications Generic Name Dose Route Start Last Admin Trade Name Freq PRN Reason Stop Dose Admin Alprazolam 1 mg 05/26/24 09:52 05/27/24 09:51 Alprazolam 1 Mg Tab PO 1 mg TID PRN Administration Anxiety Aripiprazole 15 mg 05/27/24 09:00 05/27/24 09:48 Aripiprazole 15 Mg Tab PO 15 mg DAILY KEREN Administration Atorvastatin Calcium 10 mg 05/26/24 21:00 05/26/24 21:30 Atorvastatin 10 Mg Tab PO 10 mg HS KEREN Administration Budesonide/Formoterol Fumarate 2 puff 05/26/24 02:15 05/27/24 09:11 Symbicort 160-4.5 Mcg Inhaler INHALATION 2 puff RT-BID KEREN Administration Furosemide 40 mg 05/27/24 21:00 Furosemide 10 Mg/Ml 4 Ml Vial IV Q12HR KEREN Levothyroxine Sodium 25 mcg 05/27/24 06:30 05/27/24 06:16 Levothyroxine 25 Mcg Tab PO 25 mcg DAILY@0630 KEREN Administration Metoprolol Succinate 50 mg 05/26/24 21:00 05/26/24 21:29 Metoprolol Succinate (Er) 50 Mg Tab.Er.24h PO 50 mg HS KEREN Administration Morphine Sulfate 4 mg 05/25/24 20:18 Morphine Sulfate 4 Mg/Ml Syringe IV Q4HR PRN Severe Pain (Scale 7 to 10) Naloxone HCl 0.2 mg 05/25/24 20:18 Naloxone 0.4 Mg/Ml 1 Ml Vial IV Q2M PRN Opioid Reversal Nystatin 1 applic 05/27/24 14:14 Nystatin 100,000 Unit/Gm Powd 15 Gm TOPICAL TID PRN erythema Protocol Ondansetron HCl 4 mg 05/25/24 20:18 Ondansetron 4 Mg/2 Ml Vial IVP Q8HR PRN Nausea And Vomiting Pantoprazole Sodium 40 mg 05/26/24 09:00 05/27/24 08:41 Pantoprazole 40 Mg/10 Ml Vial IVP 40 mg BID KEREN Administration Paroxetine HCl 40 mg 05/27/24 09:00 05/27/24 09:48 Paroxetine 20 Mg Tab PO 40 mg DAILY KEREN Administration Senna/Docusate Sodium 1 each 05/26/24 09:52 Sennosides-Docusate Sodium 1 Each Tab PO BID PRN Constipation Torsemide 10 mg 05/27/24 09:00 05/27/24 09:48 Torsemide 20 Mg Tab PO 10 mg DAILY KEREN Administration Valsartan 320 mg 05/26/24 14:14 Valsartan 160 Mg Tab PO HS PRN Hypertension Intake and Output 05/27/24 05/27/24 05/27/24 06:59 14:59 22:59 Other: Voiding Method Toilet # Voids 2 1 Weight 99.79 kg Patient Weight 05/28/24 06:59 Weight 99.79 kg 05/27/24 08:01 05/27/24 08:01
--- NOTE | 2024-05-27 16:43 | P.PN ---
Subjective Progress Note Date: 05/27/24 Subjective: Patient seen and examined at bedside. No pain or dizziness reported. No acute events overnight. Telemetry normal sinus rhythm, no signs of V. tach. Wound showed no sign of hematoma Pertinent positives and negatives as discussed above, a complete review of systems was performed and all other systems are negative. Vitals: Signs Reviewed Physical Exam: General: nontoxic, no distress, appears at stated age Derm: warm, dry, intact Head: atraumatic, normocephalic, symmetric Eyes: EOMI, no lid lag, anicteric sclera Mouth: no lip lesion, mucus membranes moist Cardiovascular: S1 S2 reg, no murmur, rubs, or gallops Lungs: CTA bilateral, no rhonchi, no rales, no accessory muscle use Abdominal: soft, non-tender to palpataion, no appreciable organomegaly Extremities: no gross muscle atrophy, no edema, no contractures Neuro: Alert, Oriented, CNII-XII grossly intact, gait normal Psych: well appearing, appropriate affect Data Received Today: Pertinent Labs: Hgb 8.7, troponin <0.012, TSH within normal limits, ferritin 322, transferrin 173 iron, TIBC 243 Imaging: Femur CT: No acute fracture or dislocation, postsurgical changes left from left total hip arthroplasty. Hardware appears intact. Large intramuscular fluid collection within the left anterolateral thigh muscle. No internal gas Assessment and Plan: 73-year-old female with COPD, hypertension, osteoarthritis, hypothyroidism, IBS, 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 Acute blood loss anemia: In the setting of left total hip replacement (05/03) Hg on discharge at that time was 7.1. Status post 3 units PRBC. Hold ASA 81 mg PO BID. Obtain iron studies. Sx consulted for GI workup but patient with no acute GI complaints and stool occult negative. Would benefit from GI evaluation outpatient so will start a diet. Repeat CBC tomorrow. Patient cleared by Ortho. CRP, ESR, reticulocyte count ordered to evaluate any inflammatory conditions p ossible anemia of chronic disease Patient keeps up with screenings. most notably had colonoscopy within the last 10 years NSVT Repeat K level since AM blood work was hemolyzed. 2g Mag sulfate ordered for Mag of 1.7. Decrease metoprolol to 25 mg PO QHS, may be causing fatigue Recent Echo was done in 04/2024. COPD not in acute exacerbation Seen by cardiology BNP ordered Troponins negative x 2 Lasix 40 mg IV, fluid overload Telemetry monitoring. TSH within normal limit Hypertension Valsartan 320 mg PO QHS. Torsemide 10 mg PO QD. Metoprolol 50 mg PO QHS. Depression and Anxiety Paxil 40 mg PO QD. Xanax 1 mg PO TID PRN. Abilify 15 mg PO QD. Hypothyroidism Synthroid 25 mcg PO QD. Dyslipidemia Zocor 20 mg PO QHS. F: N/A E: Replete as needed N: Heart healthy diet A: PT/OT consulted. Fall precautions DVT ppx: SCD GI ppx: Protonix IV twice daily Code status: Full Anticipated discharge place: Pending clinical course Anticipated discharge time: Pending clinical I have seen and evaluated the patient today. Discussed with the resident and agree with the residents subjective and objective as documented in the resident's note. The assessment and plan was discussed and outlined as below. Reports feeling better after blood transfusion. Ortho evaluated findings of CT hip, post surgical changes, cleared for discharge. Discussed with Dr. Moseley, telemetry finding was artifact, appears volume overloaded, start Lasix IV. Volume overloaded: Worsened with 3 unit of PRBC. Also hypoalbuminemia. Echo 04/2024 EF 55-60% mild wall thickness. Started on Lasix 40 mg IV BID. Monitor electrolytes and renal function. Monitor urine output. Acute blood loss anemia: In the setting of left total hip replacement on May 03. Hg on discharge at that time was 7.1. Status post 3 units PRBC. Hold ASA 81 mg PO BID. Iron studies show Fe 75, Ferritin 322. Sx consulted for GI workup but patient with no acute GI complaints and stool occult negative. Would benefit from GI evaluation outpatient so will start a diet. Repeat CBC tomorrow. COPD not in acute exacerbation Hypertension: Valsartan 320 mg PO QHS. Torsemide 10 mg PO QD. Metoprolol 50 mg PO QHS. Depression and Anxiety: Paxil 40 mg PO QD. Xanax 1 mg PO TID PRN. Abilify 15 mg PO QD. Hypothyroidism: Synthroid 25 mcg PO QD. Dyslipidemia: Zocor 20 mg PO QHS. Objective - Vital Signs Vital signs: Vital Signs Temp 98.9 F 05/27/24 07:21 Pulse 66 05/27/24 07:21 Resp 16 05/27/24 07:21 BP 165/86 05/27/24 07:21 Pulse Ox 97 05/27/24 09:14 FiO2 Intake & Output 05/26/24 05/27/24 05/27/24 18:59 06:59 18:59 Weight 99.79 kg Other: Voiding Method Toilet Toilet Toilet # Voids 1 2 1 - Labs CBC & Chem 7: 05/27/24 08:01 05/27/24 08:01 Labs: Abnormal Lab Results - Last 24 Hours (Table) 05/26/24 05/26/24 05/26/24 Range/Units 08:11 14:29 14:29 RBC 2.87 L (3.80-5.40) m/uL Hgb 8.5 L (11.4-16.0) gm/dL Hct 27.1 L (34.0-46.0) % RDW 20.4 H (11.5-15.5) % Potassium 3.4 L (3.5-5.1) mmol/L Chloride (98-107) mmol/L Calcium (8.4-10.2) mg/dL Transferrin 173.0 L (204.0-354.0) mg/dL Ferritin 322.0 H (10.0-291.0) ng/mL 05/27/24 05/27/24 Range/Units 08:01 08:01 RBC 2.94 L (3.80-5.40) m/uL Hgb 8.7 L (11.4-16.0) gm/dL Hct 28.1 L (34.0-46.0) % RDW 20.4 H (11.5-15.5) % Potassium (3.5-5.1) mmol/L Chloride 113 H (98-107) mmol/L Calcium 8.3 L (8.4-10.2) mg/dL Transferrin (204.0-354.0) mg/dL Ferritin (10.0-291.0) ng/mL
[2024-05-27] MEDS: FUROSEMIDE 10 MG/ML 4 ML VIAL IV SCH (21:37)
[2024-05-27] MEDS: METOPROLOL SUCCINATE (ER) 25 MG TAB.ER.24H PO SCH (21:38)
[2024-05-27 22:06] LABS: C Reactive Protein 1.1 mg/dL (0.00-0.80)
[2024-05-27 22:37] LABS: Reticulocyte % 4.9 % (0.10-1.80)
[2024-05-28 06:34] LABS: Anisocytosis Moderate; HCT 27.4 % (34.0-46.0); HGB 8.6 gm/dL (11.4-16.0); Hypochromasia Marked; MCH 30.1 pg (25.0-35.0); MCHC 31.3 g/dL (31.0-37.0); MCV 96.2 fL (80.0-100.0); Macrocytosis Slight; Mean Platelet Volume 9.4; Platelet Count 207 k/uL (150-450); Poikilocytosis Slight; RBC 2.85 m/uL (3.80-5.40); RDW 20.2 % (11.5-15.5); WBC 5.9 k/uL (3.8-10.6)
[2024-05-28] MEDS: PANTOPRAZOLE 40 MG TABLET PO SCH (06:41)
[2024-05-28 06:44] LABS: African American GFR (CKD) 88 (>60 ml/min/1.73 sqM); Anion Gap 4 mmol/L; Blood Urea Nitrogen 12 mg/dL (7-17); Calcium 8.2 mg/dL (8.4-10.2); Carbon Dioxide 31 mmol/L (22-30); Chloride 106 mmol/L (98-107); Glucose 90 mg/dL (74-99); Non-African American GFR(CKD) 76 (>60 ml/min/1.73 sqM); Potassium 3.2 mmol/L (3.5-5.1); Sodium 141 mmol/L (137-145)
[2024-05-28] MEDS: FUROSEMIDE 10 MG/ML 4 ML VIAL IV SCH (09:19)
[2024-05-28] MEDS: POTASSIUM CHLORIDE ER 20 MEQ TAB.ER PO STA (09:58)
--- NOTE | 2024-05-28 12:47 | P.PN ---
Subjective Progress Note Date: 05/28/24 No acute events overnight. Patient has been ambulating around the room without difficulty. They deny any pain in their left hip. Objective - Vital Signs Vital signs: Vital Signs Temp 98.6 F 05/28/24 08:08 Pulse 73 05/28/24 08:08 Resp 18 05/28/24 08:08 BP 131/72 05/28/24 08:08 Pulse Ox 94 L 05/28/24 08:08 FiO2 Intake & Output 05/27/24 05/28/24 05/28/24 18:59 06:59 18:59 Intake Total 600 Balance 600 Weight 99.79 kg Intake: Oral 600 Other: Voiding Method Toilet Toilet # Voids 1 7 3 - Exam A focused exam of the left lower extremity was conducted at bedside today. Patient is resting comfortably in chair, awake, alert, and able to answer questions. There is a healing incision in the proximal left thigh consistent with prior total left hip arthroplasty. There is no wound dehiscence or signs of drainage. There is mild hyperemia. There is no surrounding erythema or signs of infection on exam today. Patient's femoral nerve which is intact. Patient is able plantarflex and dorsiflex her ankle and toes. The foot is well- perfused, pink, warm to touch, and has a brisk capillary refill under 2 seconds. - Labs CBC & Chem 7: 05/28/24 05:48 05/28/24 05:48 Labs: Abnormal Lab Results - Last 24 Hours (Table) 05/27/24 05/27/24 05/28/24 Range/Units 08:01 08:01 05:48 RBC 2.85 L (3.80-5.40) m/uL Hgb 8.6 L (11.4-16.0) gm/dL Hct 27.4 L (34.0-46.0) % RDW 20.2 H (11.5-15.5) % Retic Count 4.90 H (0.10-1.80) % Potassium (3.5-5.1) mmol/L Carbon Dioxide (22-30) mmol/L Calcium (8.4-10.2) mg/dL C-Reactive Protein 1.10 H (0.00-0.80) mg/dL NT-Pro-B Natriuret Pep 1666 H (0-125) pg/mL 05/28/24 Range/Units 05:48 RBC (3.80-5.40) m/uL Hgb (11.4-16.0) gm/dL Hct (34.0-46.0) % RDW (11.5-15.5) % Retic Count (0.10-1.80) % Potassium 3.2 L (3.5-5.1) mmol/L Carbon Dioxide 31 H (22-30) mmol/L Calcium 8.2 L (8.4-10.2) mg/dL C-Reactive Protein (0.00-0.80) mg/dL NT-Pro-B Natriuret Pep (0-125) pg/mL Assessment and Plan Assessment: Anemia Status post total left hip arthroplasty Plan: No change in plan from an orthopedic standpoint from yesterday. Patient is cleared for discharge from an orthopedic standpoint once cleared medically.
[2024-05-28] MEDS: NYSTATIN 100,000 UNIT/GM POWD 15 GM TOPICAL PRN (14:14)
--- NOTE | 2024-05-28 15:21 | P.PN ---
Subjective HISTORY OF PRESENTING ILLNESS This is a pleasant 73-year-old with past medical history significant for COPD, hypertension, osteoarthritis, hypothyroidism, IBS, total left hip replacement May 03 and anemia. She follows in the office with Dr Rodriguez.she unfortunately has not been feeling well since approximately 2 years ago. 2 years ago apparently she weighed 140 pounds and was fairly active however she believes since Covid vaccination she has been feeling fatigued, short of breath, a number of issues. She has had multiple hospitalizations. She had hip replacement however has been fairly debilitated not able walk on her hip. Unfortunately she has been having increasing lower extremity edema. 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 She has been struggling with increasing lower extremity edema. She had been on diuretics in the past and her creatinine had gotten worse. He has been feeling increasing fatigue, shortness of breath and therefore blood work was performed which showed severe anemia hemoglobin 5.3. She does admit to some dark stools however believes this is related to iron supplementation. she had reported negative hemocullt. Has been on aspirin for orthopedic surgery. she has not had much of an appetite and overall just feels fatigued. Denies any fevers or chills. She does have chronic shortness of breath. she denies any history of coronary artery disease or known congestive heart failure. Cardiology was consult is secondary to reported ventricular tachycardia 5 events. These events were reviewed on telemetry with no significant ventricular tachycardia and only artifact during the episodes marked his ventricular tachycardia. EKG shows normal sinus rhythm, normal axis, low voltage, no significant ST or T wave abnormalities. echocardiogram from 04/26/2024 shows normal left ventricular ejection fraction 55-60% with RVSP 39 and mild mitral regurgitation. ferritin 322, iron 75, TIBC 242, Troponins negative 2, albumin 2.9, total pr otein 5.0, creatinine 0.7, hemoglobin 8.7. CT lower extremity showed fluid collection may be a seroma around the left thigh 05/28 patient seen and examined. Patient was started on Lasix and had significant urine output. Potassium down to 3.2 and she received 40 mEq oral supplementation this morning. She was up most the night urinating and therefore we'll change timing of Lasix. BNP elevated at 1500. PHYSICAL EXAMINATION Vital signs reviewed. CONSTITUTIONAL: No apparent distress. HEENT: Head is normocephalic. Pupils are equal, round. Sclerae anicteric. Mucous membranes of the mouth are moist. No JVD. No carotid bruit. CHEST EXAMINATION: Lungs are clear to auscultation. No chest wall tenderness is noted on palpation or with deep breathing. HEART EXAMINATION: Regular rate and rhythm. S1, S2 heard. No murmurs, gallops or rub. ABDOMEN: Soft, nontender. Positive bowel sounds. EXTREMITIES: 2+ peripheral pulses, 2+ lower extremity edema and no calf tenderness. NEUROLOGIC EXAMINATION: Patient is awake, alert and oriented x3. ASSESSMENT lower extremity edema, most likely component of heart failure plus or minus venous insufficiency plus third spacing from protein calorie malnutrition reported episodes of ventricular tachycardia, only artifact noted on telemetry acute on chronic diastolic heart failure Low voltage on EKG Failure to thrive, increased weight gain, fatigue History of hypertension severe anemia, no obvious GI bleed. Appears anemia of chronic disease PLAN Patient with multiple medical derangements and has had significant weight gain and worsening functional status over last few years. She blames this on COVID- 19 vaccination. Metoprolol decreased as this may be causing some fatigue BNP was elevated and much of her lower extremity edema appears more related to heart failure. Continue with IV diuresis at this time. She had kidney injury in the past with over diuresis however monitor closely on a daily basis. Replace potassium. Further recommendations to follow. Would recommend at least 24 hours more as repeat hospitalization risk is high. Objective - Vital Signs Vital signs: Vital Signs Temp 98.6 F 05/28/24 08:08 Pulse 73 05/28/24 08:08 Resp 18 05/28/24 08:08 BP 131/72 05/28/24 08:08 Pulse Ox 94 L 05/28/24 08:08 FiO2 Intake & Output 05/27/24 05/28/24 05/28/24 18:59 06:59 18:59 Intake Total 600 Balance 600 Weight 99.79 kg Intake: Oral 600 Other: Voiding Method Toilet Toilet # Voids 1 7 3 - Labs CBC & Chem 7: 05/28/24 05:48 05/28/24 05:48 Labs: Abnormal Lab Results - Last 24 Hours (Table) 05/27/24 05/27/24 05/28/24 Range/Units 08:01 08:01 05:48 RBC 2.85 L (3.80-5.40) m/uL Hgb 8.6 L (11.4-16.0) gm/dL Hct 27.4 L (34.0-46.0) % RDW 20.2 H (11.5-15.5) % Retic Count 4.90 H (0.10-1.80) % Potassium (3.5-5.1) mmol/L Carbon Dioxide (22-30) mmol/L Calcium (8.4-10.2) mg/dL C-Reactive Protein 1.10 H (0.00-0.80) mg/dL NT-Pro-B Natriuret Pep 1666 H (0-125) pg/mL 05/28/24 Range/Units 05:48 RBC (3.80-5.40) m/uL Hgb (11.4-16.0) gm/dL Hct (34.0-46.0) % RDW (11.5-15.5) % Retic Count (0.10-1.80) % Potassium 3.2 L (3.5-5.1) mmol/L Carbon Dioxide 31 H (22-30) mmol/L Calcium 8.2 L (8.4-10.2) mg/dL C-Reactive Protein (0.00-0.80) mg/dL NT-Pro-B Natriuret Pep (0-125) pg/mL
--- NOTE | 2024-05-28 16:03 | P.PN ---
Subjective Progress Note Date: 05/28/24 Subjective: Patient seen and examined at bedside. No acute events overnight. Notes that she has been voiding due to Lasix. Pertinent positives and negatives as discussed above, a complete review of systems was performed and all other systems are negative. Vitals: Signs Reviewed Physical Exam: General: nontoxic, no distress, appears at stated age Derm: warm, dry, intact Head: atraumatic, normocephalic, symmetric Eyes: EOMI, no lid lag, anicteric sclera Mouth: no lip lesion, mucus membranes moist Cardiovascular: S1 S2 reg, no murmur, rubs, or gallops Lungs: CTA bilateral, no rhonchi, no rales, no accessory muscle use Abdominal: soft, non-tender to palpataion, no appreciable organomegaly Extremities: no gross muscle atrophy, b/l lower extremity edema, no contractures Neuro: Alert, Oriented, CNII-XII grossly intact, gait normal Psych: well appearing, appropriate affect Data Received Today: Pertinent Labs: Hgb 8.6, K3.2, creatinine 0.79 Imaging: No new imaging Assessment and Plan: 73-year-old female with COPD, hypertension, osteoarthritis, hypothyroidism, IBS, 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 Acute blood loss anemia: In the setting of left total hip replacement (05/03), improving Hg on discharge at that time was 7.1. Status post 3 units PRBC. Hold ASA 81 mg PO BID. Was seen by surgery, recommending outpatient EGD Repeat CBC tomorrow. Patient cleared by Ortho. Patient keeps up with screenings. most notably had colonoscopy within the last 10 years Hemoglobin level stable Hypervolemia, multifactorial Acute on chronic diastolic heart failure Venous insufficiency Anasarca secondary to protein calorie malnutrition Echo EF 55-60% Monitor electrolytes and renal function Lasix 40 mg IV twice daily, home torsemide discontinued Discussed management with cardiology, continue IV diuresis for another 24 hours, oral diuretics likely tomorrow Hypokalemia K = 3.2 Ordered KCl 40 mEq PO once Will monitor CMP -Repeat magnesium tomorrow NSVT?, Possible artifact Monitor potassium and magnesium On reduced dose of metoprolol to 25 mg PO QHS, may be causing fatigue Telemetry monitoring. TSH within normal limit COPD not in acute exacerbation -Symbicort twice daily Hypertension Valsartan 320 mg PO QHS as needed Torsemide hold Metoprolol 25 mg PO QHS. Depression and Anxiety Paxil 40 mg PO QD. Xanax 1 mg PO TID PRN. Abilify 15 mg PO QD. Hypothyroidism Synthroid 25 mcg PO QD. Dyslipidemia Zocor 20 mg PO QHS. F: N/A E: Replete as needed N: Heart healthy diet A: PT/OT consulted. Patient can ambulate independently. Fall precautions DVT ppx: SCD GI ppx: Protonix p.o. daily Code status: Full Anticipated discharge place: Home Anticipated discharge time: Likely tomorrow I have seen and evaluated the patient today. Discussed with the resident and agree with the residents finding and plan as documented in the resident's note. Changes highlighted in blue font. Objective - Vital Signs Vital signs: Vital Signs Temp 98.6 F 05/28/24 08:08 Pulse 73 05/28/24 08:08 Resp 18 05/28/24 08:08 BP 131/72 05/28/24 08:08 Pulse Ox 94 L 05/28/24 08:08 FiO2 Intake & Output 05/27/24 05/28/24 05/28/24 18:59 06:59 18:59 Intake Total 600 Balance 600 Weight 99.79 kg Intake: Oral 600 Other: Voiding Method Toilet Toilet # Voids 1 7 3 - Labs CBC & Chem 7: 05/28/24 05:48 05/28/24 05:48 Labs: Abnormal Lab Results - Last 24 Hours (Table) 05/27/24 05/27/24 05/28/24 Range/Units 08:01 08:01 05:48 RBC 2.85 L (3.80-5.40) m/uL Hgb 8.6 L (11.4-16.0) gm/dL Hct 27.4 L (34.0-46.0) % RDW 20.2 H (11.5-15.5) % Retic Count 4.90 H (0.10-1.80) % Potassium (3.5-5.1) mmol/L Carbon Dioxide (22-30) mmol/L Calcium (8.4-10.2) mg/dL C-Reactive Protein 1.10 H (0.00-0.80) mg/dL NT-Pro-B Natriuret Pep 1666 H (0-125) pg/mL 05/28/24 Range/Units 05:48 RBC (3.80-5.40) m/uL Hgb (11.4-16.0) gm/dL Hct (34.0-46.0) % RDW (11.5-15.5) % Retic Count (0.10-1.80) % Potassium 3.2 L (3.5-5.1) mmol/L Carbon Dioxide 31 H (22-30) mmol/L Calcium 8.2 L (8.4-10.2) mg/dL C-Reactive Protein (0.00-0.80) mg/dL NT-Pro-B Natriuret Pep (0-125) pg/mL
[2024-05-28] MEDS: POTASSIUM CHLORIDE ER 20 MEQ TAB.ER PO SCH (21:36)
[2024-05-29 07:32] VITALS: BP 139/78; PULSE 73; RESP 18; TEMP 98
[2024-05-29 07:49] LABS: Anisocytosis Slight; Basophils % (A) 0 %; Eosinophils # (A) 0.3 k/uL (0-0.7); Eosinophils % (A) 4 %; HCT 31.1 % (34.0-46.0); HGB 9.5 gm/dL (11.4-16.0); Hypochromasia Marked; Lymphocytes # (A) 1.4 k/uL (1.0-4.8); Lymphocytes % (A) 26 %; MCH 29.7 pg (25.0-35.0); MCHC 30.6 g/dL (31.0-37.0); MCV 97.1 fL (80.0-100.0); Macrocytosis Slight; Mean Platelet Volume 9.6; Monocytes # (A) 0.5 k/uL (0-1.0); Monocytes % (A) 9 %; Neutrophils # (A) 3.3 k/uL (1.3-7.7); Neutrophils % (A) 58 %; Platelet Count 238 k/uL (150-450); Poikilocytosis Slight; RDW 19.8 % (11.5-15.5); WBC 5.6 k/uL (3.8-10.6)
[2024-05-29 08:17] LABS: African American GFR (CKD) 73 (>60 ml/min/1.73 sqM); Anion Gap 1 mmol/L; Blood Urea Nitrogen 16 mg/dL (7-17); Calcium 8.4 mg/dL (8.4-10.2); Carbon Dioxide 38 mmol/L (22-30); Chloride 99 mmol/L (98-107); Glucose 89 mg/dL (74-99); Magnesium 1.6 mg/dL (1.6-2.3); Non-African American GFR(CKD) 64 (>60 ml/min/1.73 sqM); Potassium 3.8 mmol/L (3.5-5.1); Sodium 138 mmol/L (137-145)
--- NOTE | 2024-05-29 08:50 | P.PN ---
Subjective Progress Note Date: 05/29/24 No acute events overnight. Patient has been ambulating to bathroom without assistance. They deny any pain in their left hip. They report feeling fatigued due to poor sleep from getting up to use the bathroom overnight. Objective - Vital Signs Vital signs: Vital Signs Temp 98.0 F 05/29/24 06:52 Pulse 73 05/29/24 06:52 Resp 18 05/29/24 06:52 BP 139/78 05/29/24 06:52 Pulse Ox 92 L 05/29/24 06:52 FiO2 Intake & Output 05/28/24 05/29/24 05/29/24 18:59 06:59 18:59 Intake Total 480 Balance 480 Intake: Oral 480 Other: Voiding Method Bedside Commode # Voids 1 5 - Exam A focused exam of the left lower extremity was conducted at bedside today. Patient is resting comfortably in chair, awake, alert, and able to answer questions. There is mild swelling in the anterior left thigh, less than yesterday. There is a healing incision in the proximal left thigh consistent with prior left total hip arthroplasty. There is no wound dehiscence or signs of drainage. There is mild hyperemia. There is no surrounding erythema or signs of infection on exam today. Patient's femoral nerve which is intact. Patient is able plantarflex and dorsiflex her ankle and toes. The foot is well- perfused, pink, warm to touch, and has a brisk capillary refill under 2 seconds. - Labs CBC & Chem 7: 05/29/24 07:28 05/29/24 07:28 Labs: Abnormal Lab Results - Last 24 Hours (Table) 05/29/24 05/29/24 Range/Units 07: 07:28 RBC 3.20 L (3.80-5.40) m/uL Hgb 9.5 L (11.4-16.0) gm/dL Hct 31.1 L (34.0-46.0) % MCHC 30.6 L (31.0-37.0) g/dL RDW 19.8 H (11.5-15.5) % Carbon Dioxide 38 H (22-30) mmol/L Assessment and Plan Assessment: Anemia Status post left total hip arthroplasty 05/03/2024 Plan: Patient is cleared for discharge from an orthopedic standpoint once cleared medically. Ordered physical therapy to continue mobility and ambulation training.
--- NOTE | 2024-05-29 12:48 | P.PN ---
Subjective HISTORY OF PRESENT ILLNESS: This is a pleasant 73-year-old with past medical history significant for COPD, hypertension, osteoarthritis, hypothyroidism, IBS, total left hip replacement May 03 and anemia. She follows in the office with Dr Rodriguez.she unfortunately has not been feeling well since approximately 2 years ago. 2 years ago apparently she weighed 140 pounds and was fairly active however she believes since Covid vaccination she has been feeling fatigued, short of breath, a number of issues. She has had multiple hospitalizations. She had hip replacement however has been fairly debilitated not able walk on her hip. Unfortunately she has been having increasing lower extremity edema. She is seen a number of boiler room helper and got a second opinion in terms of diagnosis of heart failure. She has been struggling with increasing lower extremity edema. She had been on diuretics in the past and her creatinine had gotten worse. He has been feeling increasing fatigue, shortness of breath and therefore blood work was performed which showed severe anemia hemoglobin 5.3. She does admit to some dark stools however believes this is related to iron supplementation. she had reported negative hemocullt. Has been on aspirin for orthopedic surgery. she has not had much of an appetite and overall just feels fatigued. Denies any fevers or chills. She does have chronic shortness of breath. she denies any history of coronary artery disease or known congestive heart failure. Cardiology was consult is secondary to reported ventricular tachycardia 5 events. These events were reviewed on telemetry with no significant ventricular tachycardia and only artifact during the episodes marked his ventricular tachycardia. EKG shows normal sinus rhythm, normal axis, low voltage, no significant ST or T wave abnormalities. echocardiogram from 04/26/2024 shows normal left ventricular ejection fraction 55-60% with RVSP 39 and mild mitral regurgitation. ferritin 322, iron 75, TIBC 242, Troponins negative 2, albumin 2.9, total pr otein 5.0, creatinine 0.7, hemoglobin 8.7. CT lower extremity showed fluid collection may be a seroma around the left thigh 05/28 patient seen and examined. Patient was started on Lasix and had significant urine output. Potassium down to 3.2 and she received 40 mEq oral supplementation this morning. She was up most the night urinating and therefore we'll change timing of Lasix. BNP elevated at 1500. 05/29/2024 Patient examined this morning at the bedside. Patient currently denies chest pain or pressure. She denies shortness of breath. She continues to have lower extremity edema. Vital signs are stable. She is hoping to be discharged home soon. PHYSICAL EXAM: VITAL SIGNS: Reviewed. GENERAL: Well-developed in no acute distress. NECK: Supple. No JVD or thyromegaly LUNGS: Respirations even and unlabored. Lungs essentially clear to auscultation bilaterally. HEART: Regular rate and rhythm. S1 and S2 heard. EXTREMITIES: Normal range of motion. No clubbing or cyanosis. Peripheral pulses intact. 2+ bilateral lower extremity edema ASSESSMENT: Acute on chronic heart failure with preserved EF Lower extremity edema, most likely component of heart failure plus or minus venous insufficiency plus third spacing from protein calorie malnutrition Reported episodes of ventricular tachycardia, only artifact noted on telemetry Status post left total hip arthroplasty 05/03/2024 Low voltage on EKG Failure to thrive, increased weight gain, fatigue History of hypertension Acute blood loss anemia PLAN: Continue current cardiac medications Apply Mekhi wraps to bilateral lower extremities Discussed use of INDU hose on an outpatient basis Continue IV Lasix while patient is in the hospital due to lower extremity edema. However she is stable for discharge and may be discharged home today from a cardiac standpoint Patient to follow-up postdischarge with Dr. Rodriguez Nurse practitioner note has been reviewed by physician. Signing provider agrees with the documented findings, assessment, and plan of care documented by COMPANY MARKER as a scribe. Objective - Vital Signs Vital signs: Vital Signs Temp 98.0 F 05/29/24 06:52 Pulse 73 05/29/24 06:52 Resp 18 05/29/24 06:52 BP 139/78 05/29/24 06:52 Pulse Ox 92 L 05/29/24 06:52 FiO2 Intake & Output 05/28/24 05/29/24 05/29/24 18:59 06:59 18:59 Intake Total 480 Balance 480 Intake: Oral 480 Other: Voiding Method Bedside Commode # Voids 1 5 - Labs CBC & Chem 7: 05/29/24 07:28 05/29/24 07:28 Labs: Abnormal Lab Results - Last 24 Hours (Table) 05/29/24 05/29/24 Range/Units 07:28 07:28 RBC 3.20 L (3.80-5.40) m/uL Hgb 9.5 L (11.4-16.0) gm/dL Hct 31.1 L (34.0-46.0) % MCHC 30.6 L (31.0-37.0) g/dL RDW 19.8 H (11.5-15.5) % Carbon Dioxide 38 H (22-30) mmol/L
--- NOTE | 2024-05-29 16:00 | P.DS ---
Providers Date of admission: 05/25/24 20:18 Expected date of discharge: 05/29/24 Attending physician: Tiesha Sandoval MD Consults: 05/26/24 09:22 Consult Physician Routine Consulting Provider: Ricky Beth Consult Reason/Comments: Recent Sx with anemia Do you want consulting provider notified?: Yes 05/26/24 14:16 Consult Physician Routine Consulting Provider: Kevin Zee Consult Reason/Comments: Run of Vtach Do you want consulting provider notified?: Yes Primary care physician: [facility] Hospital Course: Discharge Diagnosis: Acute blood loss anemia Hypervolemia, multifactorial Acute on chronic diastolic heart failure Venous insufficiency Anasarca secondary to protein malnutrition Hypokalemia COPD Hypertension Depression Anxiety Hypothyroidism Dyslipidemia Hospital Course: 73-year-old female with COPD, hypertension, osteoarthritis, hypothyroidism, IBS, 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 She reports fatigue, shortness of breath with exertion and positional lightheadedness. She denies BRBPR or vaginal bleeding. She reports dark stools since starting ferrous sulfate supplementation. She reports 40 lb weight loss over the past 2 months associated with poor appetite and oral intake. Last C-scope 4 years ago normal per patient. In the ED she underwent extensive evaluation. BP 132/56, HR 74, RR 17, T 98.8F, 99% on 2L NC. CBC, CMP, Coag panel significant for RBC 1.72, Hg 5.3, Hct 17.7, MCV 103.1, MCHC 29.7, RDW 19.3, APTT 20.5, Cl 113, BUN 24, AST 37, alb 3.2. Mag 1.6. Lactic acid 1.7. Troponins < 0.012 x 2. Stool occult blood negative. EKG sinus rhythm. Patient is admitted for further workup and management. Received 3 unit PRBC. RN reports 5 run Vtach while patient going to the bathroom. Reports feeling better after blood transfusion. Hemoglobin level stabilized. Ortho evaluated findings of CT hip, post surgical changes, cleared for discharge. Cardiology was consulted, telemetry finding was artifact, appears volume overloaded, start Lasix IV. Patient responded well to IV Lasix was discharged on oral diuretic medication. She is to follow with PCP and cardiology. She is being discharged home. 05/29/2024: Patient seen and examined at bedside. No acute events overnight. Bilateral lower extremity edema has improved. Vital signs reviewed and stable. Physical Exam: General non-toxic, no distress, appears appropriate age Derm: warm, dry Head atruamatic, normocephalic, symmetric Eyes: EMOI, no lid lag Mouth: no lip lesion, mucus membranes moist Cardiovascular: S1S2 reg, no murmur Lungs: CTA bilateral, no rhonchi, no rales, no accessory muscle use Abdominal: soft, nontender to palpation, no guarding, no appreciable organomegaly Ext: no gross muscle atrophy, no edema, no contractures Neuro: CN II-XI grossly intact, no focal neuro deficits Psych: alert, oriented, appropriate affect A total of 33 minutes of time were spent preparing this complex discharge summary. Patient was discharge on 05/29/2024 at 10:43 AM I have seen and evaluated the patient today. Discussed with the resident and agree with the residents finding and plan as documented in the resident's note. Changes highlighted in blue font. Patient Condition at Discharge: Stable Plan - Discharge Summary Discharge Rx Participant: No New Discharge Prescriptions: Continue Simvastatin [Zocor] 20 mg PO HS Albuterol Sulfate [Albuterol Sulfate Hfa] 1 - 2 puff PO RT-Q4H PRN PRN Reason: Shortness Of Breath Folic Acid 1 mg PO DAILY Cholecalciferol [Vitamin D3 (25 Mcg = 1000 Iu)] 50 mcg PO DAILY Levothyroxine Sodium [Synthroid] 25 mcg PO DAILY Mupirocin 2% Oint [Bactroban 2% Oint] 1 applic TOPICAL BID Sennosides-Docusate Sodium [Senokot-S] 1 tab PO BID PRN #60 tablet PRN Reason: Constipation Ondansetron [Zofran] 4 mg PO Q6HR PRN #30 tab PRN Reason: Nausea oxyCODONE-APAP 5-325MG [Percocet 5-325 mg] 1 tab PO BID PRN PRN Reason: Pain Valsartan 320 mg PO HS ARIPiprazole [Abilify] 15 mg PO DAILY ALPRAZolam [Xanax] 1 mg PO TID PRN PRN Reason: Anxiety PARoxetine HCL [Paxil] 40 mg PO DAILY Metoprolol Succinate [Toprol XL] 50 mg PO HS Omeprazole 20 mg PO DAILY #30 tab Ferrous Sulfate [Iron (65 MG Elemental)] 325 mg PO W/LUNCH #30 tab Changed Torsemide [Demadex] 20 mg PO DAILY #0 Discontinued Aspirin 81 mg PO BID #60 tab Fluconazole [Diflucan] 150 mg PO DIRECTED Diclofenac Sodium [Voltaren] 75 mg PO BID #60 tab Doxycycline Hyclate 100 mg PO BID Discharge Medication List Simvastatin [Zocor] 20 mg PO HS 05/28/17 [History] ALPRAZolam [Xanax] 1 mg PO TID PRN 02/14/23 [History] ARIPiprazole [Abilify] 15 mg PO DAILY 02/14/23 [History] Albuterol Sulfate [Albuterol Sulfate Hfa] 1 - 2 puff PO RT-Q4H PRN 02/14/23 [History] Folic Acid 1 mg PO DAILY 02/14/23 [History] Metoprolol Succinate [Toprol XL] 50 mg PO HS 02/14/23 [History] PARoxetine HCL [Paxil] 40 mg PO DAILY 02/14/23 [History] Valsartan 320 mg PO HS 02/14/23 [History] Cholecalciferol [Vitamin D3 (25 Mcg = 1000 Iu)] 50 mcg PO DAILY 09/08/23 [History] Levothyroxine Sodium [Synthroid] 25 mcg PO DAILY 09/08/23 [History] Mupirocin 2% Oint [Bactroban 2% Oint] 1 applic TOPICAL BID 04/30/24 [History] Omeprazole 20 mg PO DAILY #30 tab 05/03/24 [Rx] Ondansetron [Zofran] 4 mg PO Q6HR PRN #30 tab 05/03/24 [Rx] Sennosides-Docusate Sodium [Senokot-S] 1 tab PO BID PRN #60 tablet 05/03/24 [Rx] Ferrous Sulfate [Iron (65 MG Elemental)] 325 mg PO W/LUNCH #30 tab 05/06/24 [Rx] oxyCODONE-APAP 5-325MG [Percocet 5-325 mg] 1 tab PO BID PRN 05/26/24 [History] Torsemide [Demadex] 20 mg PO DAILY #0 05/29/24 [Rx] Follow up Appointment(s)/Referral(s): Manuel Feliciano MD [Medical Doctor] - 06/26/24 2:20 pm Dillon Christopher MD [STAFF PHYSICIAN] - 1 Week David Moseley DO [STAFF PHYSICIAN] - [facility] Week [facility] [NON-STAFF] - As Needed ([facility] will call you to schedule your in home physical therapy visits. ) Arron Shrestha MD [Primary Care Provider] - 1-2 days (Please call office to [facility] appointment ) Ricky Beth MD [Medical Doctor] - 06/06/24 1:00 pm Patient Instructions/Handouts: Anemia (DC) Activity/Diet/Wound Care/Special Instructions: Please follow up with [facility] and call with any questions or concerns, . Please see your PCP, ortho, and general surgery. Discharge Disposition: HOME SELF-CARE
--- NOTE | 2024-05-30 22:09 | CDI ---
Documentation Clarification Form Date: 05/30/2024 09:57:37 PM From: Henna Romero Phone: Admit Date: 05/25/2024 08:18:00 PM Patient Name: Africa Stevens Visit Number: [id number] Discharge Date: 05/29/2024 02:29:00 PM ATTENTION: The Clinical Documentation Specialists (CDI) and [facility] Coding Staff appreciate your assistance in clarifying documentation. Please respond to the clarification below the line at the bottom and electronically sign. The CDI & [facility] Coding staff will review the response and follow-up if needed. Please note: Queries are made part of the Legal Health Record. If you have any questions, please contact the author of this message via ITS. Doctor/Provider: Vini Mix Malnutrition is documented per Consult 05/27 and the Progress Notes. Additional clarification regarding the severity of malnutrition is requested. History/Risk Factors: 73yo F, ABLA, Hx GIB, COPD,HLD, HTN w ACDHF, NSVT, OA,hypothyroidism,IBS, LTHR 05/03, weight gain, and worsening functional status over last few years. Clinical Indicators: Current BMI: 37.8 Some component of third spacing; Anasarca Macrocytosis- MCV 103.1 likely due to poor nutritional diet. Check RBC folate and vitamin B12 2yrs she weighed 140 pounds and was fairly active however she believes since Covid vaccination she has been feeling fatigued, short of breath, a number of issues. Treatment: Echo EF 55-60%. Monitor electrolytes and renal function. Lasix 40 mg IV twice daily, home torsemide discontinued. Discussed management with cardiology, continue IV diuresis for another 24 hours, oral diuretics likely tomorrow Please clarify the severity of malnutrition, if known: [ ] Mild Protein-Calorie Malnutrition [ x ] Moderate Protein-Calorie Malnutrition [ ] Other condition, please specify [ ] Unable to Determine (Template Last Revised: May 2023) MTDD
== END 2024-05-29 14:29 | disposition home or self-care (01) | DRG 811 ==
LOC: EC 17:31 → 4SSUR 20:18
PROVIDERS: ADMIT Internal Medicine; ATTEND Internal Medicine
PROC: 30233N1 Transfusion of Nonautologous Red Blood Cells into Peripheral Vein, Percutaneous Approach (ICD-10-PCS; principal; 2024-05-25)
DX: D62 Acute posthemorrhagic anemia (principal); I50.33 Acute on chronic diastolic (congestive) heart failure; E44.0 Moderate protein-calorie malnutrition; I47.20 Ventricular tachycardia, unspecified; I11.0 Hypertensive heart disease with heart failure; J44.9 Chronic obstructive pulmonary disease, unspecified; R62.7 Adult failure to thrive; E88.09 Other disorders of plasma-protein metabolism, not elsewhere classified; F32.A Depression, unspecified; D63.8 Anemia in other chronic diseases classified elsewhere; E03.9 Hypothyroidism, unspecified; D75.89 Other specified diseases of blood and blood-forming organs; I87.2 Venous insufficiency (chronic) (peripheral); E87.6 Hypokalemia; E78.5 Hyperlipidemia, unspecified; F41.9 Anxiety disorder, unspecified; R19.5 Other fecal abnormalities; R53.81 Other malaise; Z96.642 Presence of left artificial hip joint; Z87.891 Personal history of nicotine dependence; Z79.51 Long term (current) use of inhaled steroids; Z79.890 Hormone replacement therapy; Z79.899 Other long term (current) drug therapy; Z79.82 Long term (current) use of aspirin
CPT/HCPCS: 36415; 36430; 73502; 80048; 80053; 82272; 82728; 83010; 83540; 83550; 83605; 83735; 83880; 84100; 84132; 84443; 84484; 85025; 85027; 85045; 85384; 85610; 85652; 85730; 86140; 86850; 86900; 86901; 86920; 93005; 94640; 94760; 96360; 96361; 99285

== ENCOUNTER 2024-06-06 13:59 | Inpatient (IN) | payer MEDICARE, OTHER ==
[2024-06-06] MEDS ORDERED: MORPHINE SULFATE 4 MG/ML SYRINGE IV PRN (14:19)
[2024-06-06] MEDS ORDERED: NALOXONE 0.4 MG/ML 1 ML VIAL IV PRN (14:19)
--- NOTE | 2024-06-06 14:23 | ED ---
General Adult HPI - General Chief complaint: Extremity Injury, Lower Stated complaint: L hip pain-post op Time Seen by Provider: 06/06/24 14:04 Source: patient Mode of arrival: ambulatory Limitations: no limitations - History of Present Illness Initial comments: Dictation was produced using [employer] dictation software. please excuse any grammatical, word or spelling errors. Chief Complaint: 73-year-old female presents emergency department with left hip dislocation History of Present Illness: Patient 73-year-old female presents to the emergency department from orthopedic surgery's office. Patient states that she went to sit down when she dislocated her prosthetic left hip. Initial surgery was performed 5 ago. She followed up with orthopedic surgery and was told to come to the ER to be admitted for hip surgery. According to family member due to the nature of the dislocation patient will need to go to the OR for relocation and revision patient complaining of left hip pain. The ROS documented in this emergency department record has been reviewed and confirmed by me. Those systems with pertinent positive or negative responses have been documented in the HPI. All other systems are other negative and/or noncontributory. - Related Data Home Medications Medication Instructions Recorded Confirmed Simvastatin [Zocor] 20 mg PO HS 05/28/17 06/06/24 ALPRAZolam [Xanax] 1 mg PO TID PRN 02/14/23 06/06/24 Albuterol Sulfate [Albuterol 2 puff INHALATION RT-Q4H PRN 02/14/23 06/06/24 Sulfate Hfa] Folic Acid 1 mg PO DAILY 02/14/23 06/06/24 Metoprolol Succinate [Toprol XL] 50 mg PO HS 02/14/23 06/06/24 PARoxetine HCL [Paxil] 40 mg PO DAILY 02/14/23 06/06/24 Cholecalciferol [Vitamin D3 (25 50 mcg PO DAILY 09/08/23 06/06/24 Mcg = 1000 Iu)] Levothyroxine Sodium [Synthroid] 25 mcg PO DAILY 09/08/23 06/06/24 Mupirocin 2% Oint [Bactroban 2% 1 applic TOPICAL BID 04/30/24 06/06/24 Oint] oxyCODONE-APAP 5-325MG [Percocet 1 tab PO Q6H PRN 05/26/24 06/06/24 5-325 mg] ARIPiprazole [Abilify] 15 mg PO DAILY 06/06/24 06/06/24 Aspirin EC [Ecotrin Low Dose] 81 mg PO DAILY 06/06/24 06/06/24 Docusate [Colace] 100 mg PO DAILY 06/06/24 06/06/24 Doxycycline Hyclate 100 mg PO BID 06/06/24 06/06/24 Ferrous Sulfate [Iron (65 MG 325 mg PO DAILY 06/06/24 06/06/24 Elemental)] Ipratropium-Albuterol Nebulize 3 ml INHALATION RT-BID PRN 06/06/24 06/06/24 [Duoneb 0.5 mg-3 mg/3 ml Soln] Nystatin 100,000 Unit/gm Powd 1 applic TOPICAL BID 06/06/24 06/06/24 [Mycostatin Powder] Tiotropium 2.5 Mcg/Puff [Spiriva 1 puff INHALATION RT-DAILY 06/06/24 06/06/24 Respimat 2.5 Mcg] Torsemide [Demadex] 20 mg PO DAILY 06/06/24 06/06/24 Previous Rx's Medication Instructions Recorded Ondansetron [Zofran] 4 mg PO Q6HR PRN #30 tab 05/03/24 Sennosides-Docusate Sodium 1 tab PO BID PRN #60 tablet 05/03/24 [Senokot-S] Allergies Allergy/AdvReac Type Severity Reaction Status Date / Time clonidine AdvReac AMS, Verified 06/06/24 16:22 slurred speech Review of Systems ROS Statement: Those systems with pertinent positive or pertinent negative responses have been documented in the HPI. ROS Other: All systems not noted in ROS Statement are negative. Past Medical History Past Medical History: COPD, Fibromyalgia, GERD/Reflux, Hyperlipidemia, Hypertension, Osteoarthritis (OA), Sleep Apnea/CPAP/BIPAP, Thyroid Disorder Additional Past Medical History / Comment(s): Sleep apnea no CPAP used, IBS. Possible CHF however different doctors differ on this diagnosis. 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 History of Any Multi-Drug Resistant Organisms: None Reported Past Surgical History: Breast Surgery, Joint Replacement, Tubal Ligation Additional Past Surgical History / Comment(s): lumpectomy left breast. Hip replacement surgery 2006. D&C 2008, colonoscopy 2018. Gallbladder 2020. Past Anesthesia/Blood Transfusion Reactions: Previous Problems w/ Anesthesia Additional Past Anesthesia/Blood Transfusion Reaction / Comment(s): "i get violent when I come out" Past Psychological History: Anxiety, Depression Smoking Status: Former smoker Past Alcohol Use History: None Reported Past Drug Use History: Marijuana - Past Family History Father Family Medical History: Myocardial Infarction ([place]) Mother Family Medical History: Cancer Additional Family Medical History / Comment(s): Cervical cancer. Sister(s) Family Medical History: Diabetes Mellitus General Exam - General Exam Comments Initial Comments: PHYSICAL EXAM: General Impression: Alert and oriented x3, acute distress secondary to pain HEENT: Normocephalic atraumatic, extra-ocular movements intact, pupils equal and reactive to light bilaterally, mucous membranes moist. Cardiovascular: Heart regular rate and rhythm Chest: Able to complete full sentences, no retractions, no tachypnea Abdomen: abdomen soft, non-tender, non-distended, no organomegaly Musculoskeletal: Pulses present and equal in all extremities, no peripheral edema, shortened left lower extremity Motor: no focal deficits noted Neurological: CN II-XII grossly intact, no focal motor or sensory deficits noted Skin: Intact with no visualized rashes Psych: Normal affect and mood Limitations: no limitations Course Vital Signs 06/06/24 14:00 Temperature 98.3 F Pulse Rate 84 Respiratory 18 Rate Blood Pressure 142/49 O2 Sat by Pulse 95 Oximetry EKG Findings - EKG Comments: EKG Findings:: My EKG interpretation: Ventricular rate 82, sinus rhythm,. 144, QRS 81, QTc 414. No MO prolongation, no QTC prolongation, no ST or T-wave changes noted. Overall, this EKG is unremarkable Medical Decision Making - Medical Decision Making Was pt. sent in by a medical professional or institution (, PA, CAUSTIC PURIFICATION OPERATOR, urgent care, hospital, or intermediate...) When possible be specific @ -Sent from orthopedic surgery office Did you speak to anyone other than the patient for history (EMS, parent, family, police, friend...)? What history was obtained from this source @ -Some history obtained from daughter at the bedside along with orthopedic surgeon Did you review nursing and triage notes (agree or disagree)? Why? @ -I reviewed and agree with nursing and triage notes Were old charts reviewed (outside hosp., previous admission, EMS record, old EKG, old radiological studies, urgent care reports/EKG's, intermediate records)? Report findings @ -No old charts were reviewed Differential Diagnosis (chest pain, altered mental status, abdominal pain women, abdominal pain men, vaginal bleeding, musculoskeletal, weakness, fever, dyspnea, syncope, headache, dizziness, GI bleed, back pain, seizure, CVA, palpatations, mental health)? @ -Hip fracture, hip strain, hip dislocation EKG interpreted by me (3pts min.). @ -See above X-rays interpreted by me (1pt min.). @ -Hip x-ray shows prosthetic hip dislocation CT interpreted by me (1pt min.). @ -None done U/S interpreted by me (1pt. min.). @ -None done What testing was considered but not performed or refused? (CT, X-rays, U/S, labs)? Why? @ -None What meds were considered but not given or refused? Why? @ -None Was smoking cessation discussed for >3mins.? @ -No Were there social determinants of health that impacted care today? How? (Homelessness, low income, unemployed, alcoholism, drug addiction, transportation, low edu. Level, literacy, decrease access to med. care, longterm, rehab)? @ -No Was there de-escalation of care discussed even if they declined (Discuss DNR or withdrawal of care, Hospice)? DNR status @ -No What co-morbidities impacted this encounter? (DM, HTN, Smoking, COPD, CAD, Ca ncer, CVA, ARF, Chemo, Hep., AIDS, mental health diagnosis, sleep apnea, morbid obesity)? @ -None Was patient admitted / discharged? Hospital course, mention meds given and route, prescriptions, significant lab abnormalities, going to OR and other pertinent info. @ -73-year-old female sent from orthopedic surgery office for prosthetic hip dislocation. Plan was for patient to be admitted with plans for operative intervention tomorrow. Vital signs upon arrival are within acceptable limits. Labs within acceptable limits. X-ray shows hip dislocation. Patient will be admitted with consultation to medicine per request by orthopedic surgery for medicine consult. Did you discuss the management of the patient with other professionals (professionals i.e. , PA, CAUSTIC PURIFICATION OPERATOR, lab, RT, psych nurse, director of social media marketing, gum maker, teacher, intelligence support officer, welfare case worker)? Give summary @ -Case discussed with Ortho Was critical care preformed (if so, how long)? @ -No Undiagnosed new problem with uncertain prognosis? @ -No Drug Therapy requiring intensive monitoring for toxicity (Heparin, Nitro, Insulin, Cardizem)? @ -No Were any procedures done? @ -No Diagnosis/symptom? Acute, or Chronic, or Acute on Chronic? Uncomplicated (without systemic symptoms) or Complicated (systemic symptoms)? @ -Prosthetic hip dislocation Side effects of treatment? @ -No Exacerbation, Progression, or Severe Exacerbation? @ -No Poses a threat to life or bodily function? How? (Chest pain, [place], [place], pneumonia, PE, COPD, DKA, ARF, appy, cholecystitis, CVA, Diverticulitis, Homicidal, Suicidal, threat to staff... and all critical care pts) @ -yes - Lab Data Result diagrams: 06/06/24 15:21 06/06/24 15:21 Disposition Clinical Impression: Hip dislocation, left Disposition: ADMITTED IP TO THIS [facility] Condition: Serious Decision Time: 16:31
[2024-06-06 15:36] LABS: Anisocytosis Slight; Basophils % (A) 0 %; Eosinophils # (A) 0.1 k/uL (0-0.7); Eosinophils % (A) 1 %; HCT 31.3 % (34.0-46.0); HGB 9.8 gm/dL (11.4-16.0); Hypochromasia Marked; Lymphocytes # (A) 1.5 k/uL (1.0-4.8); Lymphocytes % (A) 13 %; MCH 29.7 pg (25.0-35.0); MCHC 31.3 g/dL (31.0-37.0); MCV 94.7 fL (80.0-100.0); Macrocytosis Slight; Mean Platelet Volume 8.5; Monocytes # (A) 0.8 k/uL (0-1.0); Monocytes % (A) 7 %; Neutrophils # (A) 8.7 k/uL (1.3-7.7); Neutrophils % (A) 76 %; Platelet Count 363 k/uL (150-450); RBC 3.31 m/uL (3.80-5.40); RDW 18.1 % (11.5-15.5); WBC 11.4 k/uL (3.8-10.6)
[2024-06-06 15:43] LABS: Partial Thromboplastin Time 22.2 sec (22.0-30.0); Prothrombin Time 10.8 sec (10.0-12.5)
[2024-06-06] MEDS: SODIUM CHLORIDE 0.9% 1,000 ML IV STA (15:44)
[2024-06-06 15:45] LABS: African American GFR (CKD) 60 (>60 ml/min/1.73 sqM); Anion Gap 8 mmol/L; Blood Urea Nitrogen 24 mg/dL (7-17); Calcium 8.6 mg/dL (8.4-10.2); Carbon Dioxide 22 mmol/L (22-30); Chloride 107 mmol/L (98-107); Glucose 114 mg/dL (74-99); Non-African American GFR(CKD) 52 (>60 ml/min/1.73 sqM); Potassium 3.9 mmol/L (3.5-5.1); Sodium 137 mmol/L (137-145)
[2024-06-06] MEDS: MORPHINE SULFATE 4 MG/ML SYRINGE IV STA (15:48)
[2024-06-06] MEDS: SODIUM CHLORIDE 0.9% 1,000 ML IV SCH (15:59)
--- NOTE | 2024-06-06 16:16 | XR ---
EXAMINATION TYPE: XR Hip Limited LT DATE OF EXAM: 06/06/2024 4:10 PM CLINICAL INDICATION:Female, 73 years old with history of hip dislocation; [facility] COMPARISON: 05/27/2024. TECHNIQUE: XR Hip Limited LT; hip was examined in the frontal and lateral projections and a AP pelvis . FINDINGS/IMPRESSION: Left hip arthroplasty with superior hip dislocation of the femoral head component. No evidence of fra cture.
[2024-06-06] MEDS ORDERED: HYDROcodone/APAP 5-325MG 1 EACH TAB PO PRN ×2 (17:00)
--- NOTE | 2024-06-06 18:06 | P.HPOR ---
History of Present Illness H&P Date: 06/06/24 the patient is a very pleasant 73-year-old female with multiple medical problems who recently underwent a left direct anterior total hip replacement by myself on 05/03/2024. She was doing very well in the perioperative period with almost no pain in her left hip. Earlier today she was going to sit down putting her knee onto her wheelchair and putting her body weight over the knee when she fell fo rward forcefully hyperextending her knee. She felt a pop in the hip and was immediately painful and unable to bear weight. She presented to the office for x-rays showed a dislocation of her left hip and likely dissociation of her to mobility liner. She was sent to the emergency department as a direct admission. Past Medical History Past Medical History: COPD, Fibromyalgia, GERD/Reflux, Hyperlipidemia, Hypertension, Osteoarthritis (OA), Sleep Apnea/CPAP/BIPAP, Thyroid Disorder Additional Past Medical History / Comment(s): Sleep apnea no CPAP used, IBS. Possible CHF however different doctors differ on this diagnosis. 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 History of Any Multi-Drug Resistant Organisms: None Reported Past Surgical History: Breast Surgery, Joint Replacement, Tubal Ligation Additional Past Surgical History / Comment(s): lumpectomy left breast. Hip replacement surgery 2006. D&C 2007, colonoscopy 2017. Gallbladder 2019. Past Anesthesia/Blood Transfusion Reactions: Previous Problems w/ Anesthesia Additional Past Anesthesia/Blood Transfusion Reaction / Comment(s): "i get v iolent when I come out" Past Psychological History: Anxiety, Depression Smoking Status: Former smoker Past Alcohol Use History: None Reported Past Drug Use History: Marijuana - Past Family History Father Family Medical History: Myocardial Infarction ([place]) Mother Family Medical History: Cancer Additional Family Medical History / Comment(s): Cervical cancer. Sister(s) Family Medical History: Diabetes Mellitus Medications and Allergies Home Medications Medication Instructions Recorded Confirmed Type Simvastatin [Zocor] 20 mg PO HS 05/28/17 06/06/24 History ALPRAZolam [Xanax] 1 mg PO TID PRN 02/14/23 06/06/24 History Albuterol Sulfate [Albuterol 2 puff INHALATION RT-Q4H PRN 02/14/23 06/06/24 History Sulfate Hfa] Folic Acid 1 mg PO DAILY 02/14/23 06/06/24 History Metoprolol Succinate [Toprol XL] 50 mg PO HS 02/14/23 06/06/24 History PARoxetine HCL [Paxil] 40 mg PO DAILY 02/14/23 06/06/24 History Cholecalciferol [Vitamin D3 (25 50 mcg PO DAILY 09/08/23 06/06/24 History Mcg = 1000 Iu)] Levothyroxine Sodium [Synthroid] 25 mcg PO DAILY 09/08/23 06/06/24 History Mupirocin 2% Oint [Bactroban 2% 1 applic TOPICAL BID 04/30/24 06/06/24 History Oint] Ondansetron [Zofran] 4 mg PO Q6HR PRN #30 tab 05/03/24 06/06/24 Rx Sennosides-Docusate Sodium 1 tab PO BID PRN #60 tablet 05/03/24 06/06/24 Rx [Senokot-S] oxyCODONE-APAP 5-325MG [Percocet 1 tab PO Q6H PRN 05/26/24 06/06/24 History 5-325 mg] ARIPiprazole [Abilify] 15 mg PO DAILY 06/06/24 06/06/24 History Aspirin EC [Ecotrin Low Dose] 81 mg PO DAILY 06/06/24 06/06/24 History Docusate [Colace] 100 mg PO DAILY 06/06/24 06/06/24 History Doxycycline Hyclate 100 mg PO BID 06/06/24 06/06/24 History Ferrous Sulfate [Iron (65 MG 325 mg PO DAILY 06/06/24 06/06/24 History Elemental)] Ipratropium-Albuterol Nebulize 3 ml INHALATION RT-BID PRN 06/06/24 06/06/24 History [Duoneb 0.5 mg-3 mg/3 ml Soln] Nystatin 100,000 Unit/gm Powd 1 applic TOPICAL BID 06/06/24 06/06/24 History [Mycostatin Powder] Tiotropium 2.5 Mcg/Puff [Spiriva 1 puff INHALATION RT-DAILY 06/06/24 06/06/24 History Respimat 2.5 Mcg] Torsemide [Demadex] 20 mg PO DAILY 06/06/24 06/06/24 History Allergies Allergy/AdvReac Type Severity Reaction Status Date / Time clonidine AdvReac AMS, Verified 06/06/24 16:22 slurred speech Physical Examination the patient is alert and oriented and able to answer questions. Her head is normocephalic and atraumatic. On inspection of the left hip there is a healed incision with mild swelling but no mikey erythema or warmth. She has obvious deformity of the leg with shortening. She has pain with any attempts at passive range of motion. She is able to actively plantarflex and dorsiflex her ankle and her toes. Results x-rays from the office show well-seated implants with a dislocation of the left hip replacement and likely dissociation of the distal mobility liner. - Labs Labs: Abnormal Lab Results - Last 24 Hours (Table) 06/06/24 06/06/24 Range/Units 15:21 15:21 WBC 11.4 H (3.8-10.6) k/uL RBC 3.31 L (3.80-5.40) m/uL Hgb 9.8 L (11.4-16.0) gm/dL Hct 31.3 L (34.0-46.0) % RDW 18.1 H (11.5-15.5) % Neutrophils # 8.7 H (1.3-7.7) k/uL BUN 24 H (7-17) mg/dL Creatinine 1.08 H (0.52-1.04) mg/dL Glucose 114 H (74-99) mg/dL H & H 06/06/24 Range/Units 15:21 Hgb 9.8 L (11.4-16.0) gm/dL Hct 31.3 L (34.0-46.0) % Coagulation 06/06/24 Range/Units 15:21 INR 1.0 (<1.2) Result Diagrams: 06/06/24 15:21 06/06/24 15:21 Assessment and Plan Assessment: left periprosthetic hip dislocation and liely dissociation of the dual mobility liner Plan: the patient is going to be admitted under my care. Internal medicine is been consulted for preoperative clearance and perioperative medical management. The patient will be need to be taken to the operating room for open reduction of the left hip dislocation due to likely dissociation of the distal mobility liner. I long discussion on the office with the patient and her daughter on the potential risks and complications. They're well aware of this. The patient is to be strictly nonweightbearing and on bedrest until surgery. We will plan on surgery tomorrow morning.
--- NOTE | 2024-06-06 18:09 | XR ---
EXAMINATION TYPE: XR chest 1V DATE OF EXAM: 06/06/2024 HISTORY: Shortness of breath. COMPARISON: 02/14/2023 TECHNIQUE: Single view of the chest is submitted. FINDINGS: Demonstrated are scattered senescent parenchymal change. There is no evidence for focal infiltrate. The heart is stable. Hilar and mediastinal structures are within normal limits. Degenerative changes are seen of the dorsal spine. IMPRESSION: 1. Chronic changes without evidence for acute pulmonary disease.
[2024-06-06] MEDS: HYDROmorphone 1 MG/ML 1 ML SYRINGE IVP PRN (18:16)
[2024-06-06] MEDS ORDERED: ALBUTEROL NEBULIZED 2.5 MG/3 ML INHALATION PRN (18:47)
[2024-06-06] MEDS ORDERED: IPRATROPIUM-ALBUTEROL 3 ML NEB INHALATION PRN (18:47)
[2024-06-06] MEDS ORDERED: SENNOSIDES-DOCUSATE SODIUM 1 EACH TAB PO PRN (18:48)
[2024-06-06] MEDS: ENOXAPARIN 40 MG/0.4 ML SYRINGE SQ SCH (19:44)
[2024-06-06] MEDS: ATORVASTATIN 10 MG TAB PO SCH (19:50)
[2024-06-06] MEDS: METOPROLOL SUCCINATE (ER) 50 MG TAB.ER.24H PO SCH (19:50)
[2024-06-06] MEDS: NYSTATIN 100,000 UNIT/GM POWD 15 GM TOPICAL SCH (19:50)
--- NOTE | 2024-06-06 20:33 | P.CONS ---
History of Present Illness - Reason for Consult Consult date: 06/06/24 Medical management Requesting physician: Ricky Beth - Chief Complaint Left periprosthetic hip displacement - History of Present Illness Very pleasant 73-year-old patient who follows with Dr. Shrestha. Chronic stable medical condition include COPD, fibromyalgia, GERD, hypertension, hyperlipidemia, osteoarthritis, hypothyroid supposed to use oxygen at home only to but does not use it, IBS anxiety depression. May 07, 2024, left total hip anterior arthroplasty.-By Dr. Ricky Beth. On May 25 patient had a hemoglobin of 5.3. Received 3 units of blood.. Patient was having some pain discomfort in the left hip. [place] a pop in the left hip area. Prosthesis was dislocated discovered at appointment at Dr. Beth's office. Patient is accompanied by his daughter in the room. Now scheduled for surgery tomorrow morning. Review of systems: GEN.: Tired EYES: None HEENT: None NECK: None RESPIRATORY: None CARDIOVASCULAR: None GASTROINTESTINAL: None GENITOURINARY: None MUSCULOSKELETAL: As above LYMPHATICS: None HEMATOLOGICAL: None PSYCHIATRY: None NEUROLOGICAL: None Social history: Smoked 1 and half pack a day for about 45 years. Stopped in 2021. No alcohol. Does smoke some marijuana. Daughter living with her. Physical examination: VITAL SIGNS: 97.8, 83, 17, 116/68, 94% 2 L GENERAL: BMI 34.3, reclining in bed a bit uncomfortable EYES: Pupils equal. Conjunctiva sumeet l. HEENT: External appearance of nose and ears normal, oral cavity grossly normal. NECK: JVD not raised; masses not palpable. HEART: First and second heart sounds are normal; no edema. LUNGS: Respiratory rate normal; decreased breath sounds. ABDOMEN: Soft, nontender, liver spleen not palpable, no masses palpable. PSYCH: Alert and oriented x3; mood and affect anxious MUSCULOSKELETAL:No Clubbing/cyanosis;muscles-grossly intact. OA. Limited range of motion left hip NEUROLOGICAL: Cranial nerves grossly intact; no facial asymmetry, power and sensation grossly intact. LYMPHATICS: No lymph nodes palpable in the axilla and neck INVESTIGATIONS, reviewed in the clinical context: June 06, 2024: White count 9.4 hemoglobin 9.8 platelets 363 sodium 137 potassium 3.9 BUN 24 creatinine 1.08 Left hip x-ray personally reviewed by me: Prosthetic ball is out of the socket EKG tracing personally reviewed by me-normal sinus rhythm. Minimal ST segment depression from V3 to V6 possible inferior leads Chest x-ray film personally reviewed by me-possible chronic changes Assessment and plan: -Left hip prosthetic joint dislocation. May 03, 2024 patient had undergone left total hip arthroplasty anterior approach, by Dr. Beth N.p.o. after midnight for surgical intervention -Essential hypertension. Currently blood pressure running on the lower side. Toprol-XL 50 mg nightly. -Chronic anemia from postprocedure blood loss -Primary osteoarthritis Pain medications as needed -GERD PPI -Hypothyroid Synthroid 25 mcg a day -Anxiety and depression Paxil. Xanax. Abilify. -COPD in a prior smoker Spiriva. DuoNeb as needed -Hyperlipidemia Zocor 20 mg nightly -Obesity BMI 34.3 Weight loss measures -Anxiety depression Paxil 40 mg a day. Abilify 15 mg a day. Xanax as needed. -Full code Care was discussed with patient daughter at bedside. Questions answered. N.p.o. after midnight except medications. Patient medically stable to proceed with surgery. Low to moderate perioperative cardiovascular risk Thank you Dr. Beth Past Medical History Past Medical History: COPD, Fibromyalgia, GERD/Reflux, Hyperlipidemia, Hypertension, Osteoarthritis (OA), Sleep Apnea/CPAP/BIPAP, Thyroid Disorder Additional Past Medical History / Comment(s): Sleep apnea no CPAP used, IBS. Possible CHF however different doctors differ on this diagnosis. 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 History of Any Multi-Drug Resistant Organisms: None Reported Past Surgical History: Breast Surgery, Joint Replacement, Tubal Ligation Additional Past Surgical History / Comment(s): lumpectomy left breast. Hip replacement surgery 2006. D&C 2007, colonoscopy 2017. Gallbladder 2019. left hip replacement 05/06 Past Anesthesia/Blood Transfusion Reactions: Previous Problems w/ Anesthesia Additional Past Anesthesia/Blood Transfusion Reaction / Comm: "i get violent when I come out" Past Psychological History: Anxiety, Depression Smoking Status: Former smoker Past Alcohol Use History: None Reported Additional Past Alcohol Use History / Comment(s): smokes 1 1/2 PPD FOR ABOUT 45 YRS . Quit smoking cigarettes 2021. Past Drug Use History: Marijuana - Past Family History Father Family Medical History: Myocardial Infarction ([place]) Mother Family Medical History: Cancer Additional Family Medical History / Comment(s): Cervical cancer. Sister(s) Family Medical History: Diabetes Mellitus Medications and Allergies Home Medications Medication Instructions Recorded Confirmed Type Simvastatin [Zocor] 20 mg PO HS 05/28/17 06/06/24 History ALPRAZolam [Xanax] 1 mg PO TID PRN 02/14/23 06/06/24 History Albuterol Sulfate [Albuterol 2 puff INHALATION RT-Q4H PRN 02/14/23 06/06/24 History Sulfate Hfa] Folic Acid 1 mg PO DAILY 02/14/23 06/06/24 History Metoprolol Succinate [Toprol XL] 50 mg PO HS 02/14/23 06/06/24 History PARoxetine HCL [Paxil] 40 mg PO DAILY 02/14/23 06/06/24 History Cholecalciferol [Vitamin D3 (25 50 mcg PO DAILY 09/08/23 06/06/24 History Mcg = 1000 Iu)] Levothyroxine Sodium [Synthroid] 25 mcg PO DAILY 09/08/23 06/06/24 History Mupirocin 2% Oint [Bactroban 2% 1 applic TOPICAL BID 04/30/24 06/06/24 History Oint] Ondansetron [Zofran] 4 mg PO Q6HR PRN #30 tab 05/03/24 06/06/24 Rx Sennosides-Docusate Sodium 1 tab PO BID PRN #60 tablet 05/03/24 06/06/24 Rx [Senokot-S] oxyCODONE-APAP 5-325MG [Percocet 1 tab PO Q6H PRN 05/26/24 06/06/24 History 5-325 mg] ARIPiprazole [Abilify] 15 mg PO DAILY 06/06/24 06/06/24 History Aspirin EC [Ecotrin Low Dose] 81 mg PO DAILY 06/06/24 06/06/24 History Docusate [Colace] 100 mg PO DAILY 06/06/24 06/06/24 History Doxycycline Hyclate 100 mg PO BID 06/06/24 06/06/24 History Ferrous Sulfate [Iron (65 MG 325 mg PO DAILY 06/06/24 06/06/24 History Elemental)] Ipratropium-Albuterol Nebulize 3 ml INHALATION RT-BID PRN 06/06/24 06/06/24 History [Duoneb 0.5 mg-3 mg/3 ml Soln] Nystatin 100,000 Unit/gm Powd 1 applic TOPICAL BID 06/06/24 06/06/24 History [Mycostatin Powder] Tiotropium 2.5 Mcg/Puff [Spiriva 1 puff INHALATION RT-DAILY 06/06/24 06/06/24 History Respimat 2.5 Mcg] Torsemide [Demadex] 20 mg PO DAILY 06/06/24 06/06/24 History Allergies Allergy/AdvReac Type Severity Reaction Status Date / Time clonidine AdvReac AMS, Verified 06/06/24 16:22 slurred speech Physical Exam Vitals: Vital Signs Temp Pulse Pulse Resp BP BP Pulse Ox 06/06/24 19:48 97.8 F 83 17 116/68 94 L 06/06/24 17:37 98.0 F 94 17 163/70 93 L 06/06/24 17:24 98.5 F 84 17 159/65 96 06/06/24 14:00 98.3 F 84 18 142/49 95 Intake and Output 06/06/24 06/06/24 06/06/24 06:59 14:59 22:59 Other: Weight 90.718 kg 90.718 kg Results CBC & Chem 7: 06/06/24 15:21 06/06/24 15:21 Labs: Abnormal Lab Results - Last 24 Hours (Table) 06/06/24 06/06/24 Range/Units 15:21 15:21 WBC 11.4 H (3.8-10.6) k/uL RBC 3.31 L (3.80-5.40) m/uL Hgb 9.8 L (11.4-16.0) gm/dL Hct 31.3 L (34.0-46.0) % RDW 18.1 H (11.5-15.5) % Neutrophils # 8.7 H (1.3-7.7) k/uL BUN 24 H (7-17) mg/dL Creatinine 1.08 H (0.52-1.04) mg/dL Glucose 114 H (74-99) mg/dL
[2024-06-07] MEDS: FUROSEMIDE 20 MG TAB PO SCH (07:52)
[2024-06-07] MEDS: FOLIC ACID 1 MG TAB PO SCH (07:52)
[2024-06-07] MEDS: PARoxetine 20 MG TAB PO SCH (07:52)
[2024-06-07] MEDS: CHOLECALCIFEROL 25 MCG (1000 IU) TABLET PO SCH (07:52)
[2024-06-07] MEDS: LEVOTHYROXINE 25 MCG TAB PO SCH (07:53)
[2024-06-07] MEDS: ARIPiprazole 15 MG TAB PO SCH (07:53)
[2024-06-07] MEDS: FERROUS SULFATE 325 MG TAB PO SCH (07:53)
[2024-06-07] MEDS ORDERED: NON FORMULARY DRUG (Tiotropium 2.5 Mcg/Puff 10 PUFF Each) INHALATION SCH (08:00)
[2024-06-07] MEDS: IV FLUID CONTINUATION 1,000 ML IV ONE (10:44)
[2024-06-07] MEDS: ONDANSETRON 4 MG/2 ML VIAL IVP STA (10:50)
[2024-06-07] MEDS: MIDAZOLAM 2 MG/2 ML VIAL IV ONE (11:12)
[2024-06-07] MEDS ORDERED: ROCURONIUM 10 MG/ML (5 ML VIAL) IV ONE (12:03)
[2024-06-07] MEDS ORDERED: MIDAZOLAM 2 MG/2 ML VIAL ONE (12:03)
[2024-06-07] MEDS ORDERED: NEOSTIGMINE 1 MG/ML 10 ML VIAL ONE (12:03)
[2024-06-07] MEDS ORDERED: LIDOCAINE 1% INJ 10MG/ML (20 ML MDV) ONE (12:03)
[2024-06-07] MEDS ORDERED: GLYCOPYRROLATE 0.2 MG/ML 2 ML VIAL ONE (12:03)
[2024-06-07] MEDS ORDERED: PROPOFOL 10 MG/ML 20 ML VIAL IV ONE (12:03)
[2024-06-07] MEDS ORDERED: SUCCINYLCHOLINE CHLORIDE 200 MG/10 ML VIAL IV ONE (12:03)
[2024-06-07] MEDS ORDERED: fentaNYL (PF) 50 MCG/ML 2 ML AMP ONE (12:03)
[2024-06-07] MEDS ORDERED: ceFAZolin 1 GM/50 ML BAG (PMX) ONE (12:03)
[2024-06-07] MEDS: SODIUM CHLORIDE 0.9% 100 ML with ceFAZolin 2,000 MG IV ONE (12:08)
[2024-06-07] MEDS: LACTATED RINGERS 1,000 ML IV ONE (12:33)
[2024-06-07] MEDS ORDERED: NALOXONE 0.4 MG/ML 1 ML VIAL IV PRN (12:51)
[2024-06-07] MEDS ORDERED: hydrOXYzine pamoate 25 MG CAP PO PRN (12:51)
[2024-06-07] MEDS ORDERED: HYDROmorphone 0.5 MG/0.5 ML SYRINGE IVP PRN ×2 (12:51)
--- NOTE | 2024-06-07 13:00 | P.OP ---
Date of Procedure: 06/07/24 Preoperative Diagnosis: 1. Left prosthetic hip dislocation 2. Prior hip replacement April 2024, left 3. Multiple medical problems Postoperative Diagnosis: Same Procedure(s) Performed: Closed reduction left periprosthetic hip dislocation Anesthesia: JARETT Surgeon: Ricky Beth IV fluids (ml): 200 Pathology: none sent Condition: stable Disposition: PACU Indications for Procedure: The patient is a very pleasant 73-year-old female with multiple medical problems who underwent a left direct anterior total hip replacement a little over a month ago. The patient was doing very well postoperatively until yesterday. According to the patient and her daughter she was trying to sit down on the couch with her left operative leg completely under her body when she got her leg caught and she forcefully fell forward hyperextending the hip. She was immediately painful and unable to ambulate. She was brought to my office where x-rays showed a hip dislocation. She was sent to the emergency department and admitted under my care. Due to the use of a dual mobility liner at her index surgery I wanted to proceed with a closed reduction under anesthesia in the operating room in the event that there was dissociation of the large ball from the small ball of the dual mobility liner. I discussed with the family both closed versus open reduction of the hip. We discussed the potential risks and complications of this at length. Risks of closed reduction include fracture, redislocation, traction injury to nerve, continued pain, and inability to regain preoperative level of function, and medical issues. We also discussed the potential complications of an open reduction. The patient and her family provided their consent to go forward with surgery. Description of Procedure: I met with the patient and her daughter in preoperative holding and the correct left hip was marked with my initials. I reviewed the consent form with the patient and her daughter. All of their questions were answered. The patient was then brought back to the operating room by anesthesia. She was positioned on the gurney where general anesthetic and preoperative antibiotics were given. The patient was then transferred onto a Lyle table. A timeout was performed identifying the correct patient, operative extremity, and procedure. I began by attempting a closed reduction of the left hip with the aid of the Lyle table. Gross traction was pulled and locked and then I used a combination of fine traction and rotation until the hip reduced into the acetabulum. Fluoroscopy was brought in to assess the reduction. Comparison fluoroscopic images from her index surgery were used his comparison. The hip appeared to be concentrically reduced within the acetabulum. There did not appear to be a dissociation of the toe mobility liner. Using the Polly table the leg was externally rotated to 90 and internally rotated to 30 and the hip appeared to be stable within the socket. Both the cup and stem appeared to be well fixed with no evidence of loosening. The patient was then transferred off of the Lyle table and after removal of the boots her leg lengths felt even. The patient was awoken from her anesthetic. A knee immobilizer was applied to the left knee to limit hip flexion. The patient was transferred to the recovery room having tolerated the procedure well. Plan: The patient is going to be admitted overnight for pain control and to work with therapy. She can weight-bear as tolerated on her left leg with a walker but should follow hip precautions including use of a knee immobilizer and no hip flexion past 90. DVT prophylaxis with aspirin. If the patient is comfortable we will plan on discharge home tomorrow. She will need follow-up in the office in 2 weeks with x-rays of the left hip.
--- NOTE | 2024-06-07 13:05 | FL ---
Fluoroscopy History: LEFT ANTERIOR HIP fl 31.6 sec dap 2.5941 left hip post reduction
--- NOTE | 2024-06-07 13:36 | XR ---
Intraoperative/procedural fluoroscopic services were provided for left hip reduction. Total left hip arthroplasty changes demonstrated. Total fluoroscopy time is 31.6 seconds with a total of 8 submitted images to PACS. Total DAP 2.5941 Gycm2. Please see the operative note for further details.
[2024-06-07] MEDS: HYDROcodone/APAP 10-325MG 1 EACH TAB PO PRN (15:43)
--- NOTE | 2024-06-07 17:25 | P.PN ---
Progress Note - Text Progress Note Date: 06/07/24 - Chief Complaint Left periprosthetic hip displacement - History of Present Illness Very pleasant 73-year-old patient who follows with Dr. Shrestha. Chronic stable medical condition include COPD, fibromyalgia, GERD, hypertension, hyper lipidemia, osteoarthritis, hypothyroid supposed to use oxygen at home only to but does not use it, IBS anxiety depression. May 07, 2024, left total hip anterior arthroplasty.-By Dr. Ricky Beth. On May 25 patient had a hemoglobin of 5.3. Received 3 units of blood.. Patient was having some pain discomfort in the left hip. [place] a pop in the left hip area. Prosthesis was dislocated discovered at appointment at Dr. Beth's office. Patient is accompanied by his daughter in the room. Now scheduled for surgery tomorrow morning. June 07: Saw the patient this morning. Later the patient was taken to the OR. Left prosthetic hip was reduced. Left knee immobilizer was given to decrease hip flexion. Active Medications Hydrocodone Bitart/Acetaminophen (Hydrocodone/Apap 5-325mg 1 Each Tab) 1 each PO Q4HR PRN PRN Reason: Pain Scale 1 to 5 Hydrocodone Bitart/Acetaminophen (Hydrocodone/Apap 5-325mg 1 Each Tab) 2 each PO Q6HR PRN PRN Reason: Pain Scale 6 to 10 Hydrocodone Bitart/Acetaminophen (Hydrocodone/Apap 10-325mg 1 Each Tab) 1 each PO Q6H PRN PRN Reason: Pain Scale 6 to 10 Last Admin: 06/07/24 15:43 Dose: 1 each Albuterol Sulfate (Albuterol Nebulized 2.5 Mg/3 Ml) 2.5 mg INHALATION RT-Q4H PRN PRN Reason: Shortness Of Breath Albuterol/Ipratropium (Ipratropium-Albuterol 3 Ml Neb) 3 ml INHALATION RT-BID PRN PRN Reason: Shortness Of Breath Alprazolam (Alprazolam 1 Mg Tab) 1 mg PO TID PRN PRN Reason: Anxiety Aripiprazole (Aripiprazole 15 Mg Tab) 15 mg PO DAILY [facility] Last Admin: 06/07/24 07:53 Dose: 15 mg Aspirin (Aspirin 81 Mg) 81 mg PO BID [facility] Atorvastatin Calcium (Atorvastatin 10 Mg Tab) 10 mg PO HS [facility] Last Admin: 06/06/24 19:50 Dose: 10 mg Cholecalciferol (Cholecalciferol 25 Mcg (1000 Iu) Tablet) 50 mcg PO DAILY [facility] Last Admin: 06/07/24 07:52 Dose: 50 mcg Enoxaparin Sodium (Enoxaparin 40 Mg/0.4 Ml Syringe) 40 mg SQ DAILY [facility] Last Admin: 06/07/24 07:09 Dose: Not Given Famotidine (Famotidine 20 Mg Tab) 20 mg PO DAILY [facility] Ferrous Sulfate (Ferrous Sulfate 325 Mg Tab) 325 mg PO DAILY [facility] Last Admin: 06/07/24 07:53 Dose: 325 mg Folic Acid (Folic Acid 1 Mg Tab) 1 mg PO DAILY [facility] Last Admin: 06/07/24 07:52 Dose: 1 mg Furosemide (Furosemide 20 Mg Tab) 20 mg PO DAILY [facility] Last Admin: 06/07/24 07:52 Dose: 20 mg Hydromorphone HCl (Hydromorphone 1 Mg/Ml 1 Ml Syringe) 1 mg IVP Q3HR PRN PRN Reason: Pain Last Admin: 06/07/24 07:56 Dose: 1 mg Hydromorphone HCl (Hydromorphone 0.5 Mg/0.5 Ml Syringe) 0.25 mg IVP Q3HR PRN PRN Reason: Pain Scale 4 to 6 Hydromorphone HCl (Hydromorphone 0.5 Mg/0.5 Ml Syringe) 0.5 mg IVP Q3HR PRN PRN Reason: Pain Scale 7 to 10 Hydromorphone HCl (Hydromorphone 0.5 Mg/0.5 Ml Syringe) 0.125 mg IVP Q3HR PRN PRN Reason: Pain Scale 1 to 3 Hydroxyzine Pamoate (Hydroxyzine Pamoate 25 Mg Cap) 25 mg PO Q4HR PRN PRN Reason: Nausea, Anxiety, Pain Control Sodium Chloride (Saline 0.9%) 1,000 mls @ 20 mls/hr IV .Q24H [facility] Last Admin: 06/07/24 13:52 Dose: Not Given Levothyroxine Sodium (Levothyroxine 25 Mcg Tab) 25 mcg PO DAILY [facility] Last Admin: 06/07/24 07:53 Dose: 25 mcg Metoprolol Succinate (Metoprolol Succinate (Er) 50 Mg Tab.Er.24h) 50 mg PO [facility] Last Admin: 07/25/24 19:50 Dose: 50 mg Morphine Sulfate (Morphine Sulfate 4 Mg/Ml Syringe) 4 mg IV Q4HR PRN PRN Reason: Severe Pain (Scale 7 to 10) Naloxone HCl (Naloxone 0.4 Mg/Ml 1 Ml Vial) 0.2 mg IV Q2M PRN PRN Reason: Opioid Reversal Naloxone HCl (Naloxone 0.4 Mg/Ml 1 Ml Vial) 0.2 mg IV Q2M PRN PRN Reason: Opioid Reversal Nystatin (Nystatin 100,000 Unit/Gm Powd 15 Gm) 1 applic TOPICAL BID [facility]; Protocol Last Admin: 06/07/24 09:58 Dose: Not Given Ondansetron HCl (Ondansetron 4 Mg Tab) 4 mg PO Q6HR PRN PRN Reason: Nausea Paroxetine HCl (Paroxetine 20 Mg Tab) 40 mg PO DAILY [facility] Last Admin: 06/07/24 07:52 Dose: 40 mg Senna/Docusate Sodium (Sennosides-Docusate Sodium 1 Each Tab) 1 each PO BID PRN PRN Reason: Constipation Social history: Smoked 1 and half pack a day for about 45 years. Stopped in 2021. No alcohol. Does smoke some marijuana. Daughter living with her. Physical examination: VITAL SIGNS: 98.4, 83, 17, 133 x 70, 95% on 2 L GENERAL: Laying in bed comfortable EYES: Pupils equal. Conjunctiva sumeet l. HEENT: External appearance of nose and ears normal, oral cavity grossly normal. NECK: JVD not raised; masses not palpable. HEART: First and second heart sounds are normal; no edema. LUNGS: Respiratory rate normal; decreased breath sounds. ABDOMEN: Soft, nontender, liver spleen not palpable, no masses palpable. PSYCH: Alert and oriented x3; mood and affect anxious MUSCULOSKELETAL:No Clubbing/cyanosis;muscles-grossly intact. OA. Limited range of motion left hip INVESTIGATIONS, reviewed in the clinical context: June 06, 2024: White count 9.4 hemoglobin 9.8 platelets 363 sodium 137 potassium 3.9 BUN 24 creatinine 1.08 Left hip x-ray personally reviewed by me: Prosthetic ball is out of the socket EKG tracing personally reviewed by me-normal sinus rhythm. Minimal ST segment depression from V3 to V6 possible inferior leads Chest x-ray film personally reviewed by me-possible chronic changes Assessment and plan: -Left hip prosthetic joint dislocation. May 03, 2024 patient had undergone left total hip arthroplasty anterior approach, by Dr. Beth Patient taken to the OR today and left hip prosthesis was put back in place. Left knee immobilizer to decrease flexion of left hip -Essential hypertension. Currently blood pressure running on the lower side. Toprol-XL 50 mg nightly. -Chronic anemia from postprocedure blood loss -Primary osteoarthritis Pain medications as needed -GERD PPI -Hypothyroid Synthroid 25 mcg a day -Anxiety and depression Paxil. Xanax. Abilify. -COPD in a prior smoker Spiriva. DuoNeb as needed -Hyperlipidemia Zocor 20 mg nightly -Obesity BMI 34.3 Weight loss measures -Anxiety depression Paxil 40 mg a day. Abilify 15 mg a day. Xanax as needed. -Full code Continue current medication treatment plan. Thank you Dr. Beth Past Medical History Past Medical History: COPD, Fibromyalgia, GERD/Reflux, Hyperlipidemia, Hypertension, Osteoarthritis (OA), Sleep Apnea/CPAP/BIPAP, Thyroid Disorder Additional Past Medical History / Comment(s): Sleep apnea no CPAP used, IBS. Possible CHF however different doctors differ on this diagnosis. 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 History of Any Multi-Drug Resistant Organisms: None Reported Past Surgical History: Breast Surgery, Joint Replacement, Tubal Ligation Additional Past Surgical History / Comment(s): lumpectomy left breast. Hip replacement surgery 2006. D&C 2007, colonoscopy 2017. Gallbladder 2019. left hip replacement 05/06 Past Anesthesia/Blood Transfusion Reactions: Previous Problems w/ Anesthesia Additional Past Anesthesia/Blood Transfusion Reaction / Comm: "i get violent when I come out" Past Psychological History: Anxiety, Depression Smoking Status: Former smoker Past Alcohol Use History: None Reported Additional Past Alcohol Use History / Comment(s): smokes 1 1/2 PPD FOR ABOUT 45 YRS . Quit smoking cigarettes 2021. Past Drug Use History: Marijuana
[2024-06-07] MEDS: HYDROmorphone 0.5 MG/0.5 ML SYRINGE IVP PRN (19:55)
[2024-06-07] MEDS: ASPIRIN 81 MG PO SCH (19:55)
[2024-06-08 04:18] LABS: African American GFR (CKD) 72 (>60 ml/min/1.73 sqM); Anion Gap 3 mmol/L; Blood Urea Nitrogen 13 mg/dL (7-17); Calcium 8.3 mg/dL (8.4-10.2); Carbon Dioxide 27 mmol/L (22-30); Chloride 107 mmol/L (98-107); Glucose 86 mg/dL (74-99); Non-African American GFR(CKD) 63 (>60 ml/min/1.73 sqM); Potassium 4.2 mmol/L (3.5-5.1); Sodium 137 mmol/L (137-145)
[2024-06-08 04:34] LABS: Anisocytosis Slight; Basophils % (A) 0 %; Eosinophils # (A) 0.3 k/uL (0-0.7); Eosinophils % (A) 4 %; HCT 27.7 % (34.0-46.0); HGB 8.4 gm/dL (11.4-16.0); Hypochromasia Marked; Lymphocytes # (A) 1.7 k/uL (1.0-4.8); Lymphocytes % (A) 25 %; MCH 29.8 pg (25.0-35.0); MCHC 30.4 g/dL (31.0-37.0); Macrocytosis Slight; Mean Platelet Volume 8.6; Monocytes # (A) 0.7 k/uL (0-1.0); Monocytes % (A) 11 %; Neutrophils # (A) 4.1 k/uL (1.3-7.7); Neutrophils % (A) 59 %; Platelet Count 284 k/uL (150-450); RBC 2.83 m/uL (3.80-5.40); RDW 17.7 % (11.5-15.5); WBC 6.9 k/uL (3.8-10.6)
[2024-06-08] MEDS: FAMOTIDINE 20 MG TAB PO SCH (08:31)
[2024-06-08] MEDS: ALPRAZolam 1 MG TAB PO PRN (08:41)
--- NOTE | 2024-06-08 09:38 | P.PN ---
Subjective Progress Note Date: 06/08/24 Principal diagnosis: Status post total left hip arthroplasty. Status post hip dislocation. Status post closed reduction left hip. This is a 73-year-old female who is postop day #1 status post closed reduction of a prosthetic hip dislocation. She states that she is having some soreness to her hip and to her ribs. She reports no fever or chills. No nausea, vomiting or diarrhea. Objective - Vital Signs Vital signs: Vital Signs Temp 98.2 F 06/08/24 07:06 Pulse 76 06/08/24 07:06 Resp 14 06/08/24 08:42 BP 131/55 06/08/24 07:06 Pulse Ox 95 06/08/24 09:24 FiO2 Intake & Output 06/07/24 06/08/24 06/08/24 18:59 06:59 18:59 Intake Total 700 Output Total 1000 950 Balance -300 -950 Intake: IV 700 Output: Urine 1000 950 Other: Voiding Method Indwelling Catheter Indwelling Catheter - Exam This is a pleasant 73-year-old female in no acute distress. She is alert and oriented x 3. Exam of the left hip reveals that her incision is well-healed. She has full foot and ankle motion without difficulty or pain. Neurovascular status to the lower extremity is intact. - Labs CBC & Chem 7: 06/08/24 03:10 06/08/24 03:10 Labs: Abnormal Lab Results - Last 24 Hours (Table) 06/08/24 06/08/24 Range/Units 03:10 03:10 RBC 2.83 L (3.80-5.40) m/uL Hgb 8.4 L (11.4-16.0) gm/dL Hct 27.7 L (34.0-46.0) % MCHC 30.4 L (31.0-37.0) g/dL RDW 17.7 H (11.5-15.5) % Calcium 8.3 L (8.4-10.2) mg/dL Assessment and Plan (1) Hip dislocation, left Current Visit: Yes Status: Acute Code(s): S73.005A - UNSPECIFIED DISLOCATION OF LEFT HIP, INITIAL ENCOUNTER SNOMED Code(s): 755192566 (2) Osteoarthritis of left hip Current Visit: No Status: Acute Code(s): M16.12 - UNILATERAL PRIMARY OSTEOARTHRITIS, LEFT HIP SNOMED Code(s): 674448111415374 (3) S/P total hip arthroplasty Current Visit: No Status: Acute Code(s): Z96.649 - PRESENCE OF UNSPECIFIED ARTIFICIAL HIP JOINT SNOMED Code(s): 976622523869 Plan: The clinical findings are discussed with the patient. We will continue to work with her with physical therapy. She is planning discharge to inpatient rehab on Monday.
--- NOTE | 2024-06-08 17:47 | P.PN ---
Progress Note - Text Progress Note Date: 06/08/24 Chief Complaint Left periprosthetic hip displacement - History of Present Illness Very pleasant 73-year-old patient who follows with Dr. Shrestha. Chronic stable medical condition include COPD, fibromyalgia, GERD, hypertension, hyperl ipidemia, osteoarthritis, hypothyroid supposed to use oxygen at home only to but does not use it, IBS anxiety depression. May 07, 2024, left total hip anterior arthroplasty.-By Dr. Ricky Beth. On May 25 patient had a hemoglobin of 5.3. Received 3 units of blood.. Patient was having some pain discomfort in the left hip. [place] a pop in the left hip area. Prosthesis was dislocated discovered at appointment at Dr. Beth's office. Patient is accompanied by his daughter in the room. Now scheduled for surgery tomorrow morning. June 07: Saw the patient this morning. Later the patient was taken to the OR. Left prosthetic hip was reduced. Left knee immobilizer was given to decrease hip flexion. June 08: In bed. Tolerating diet. No new issues. Pending to go to rehab. Patient sometimes uses oxygen at home. Patient use incentive spirometry. Sit up in a chair. Discussed with nurse. Active Medications Hydrocodone Bitart/Acetaminophen (Hydrocodone/Apap 5-325mg 1 Each Tab) 1 each PO Q4HR PRN PRN Reason: Pain Scale 1 to 5 Hydrocodone Bitart/Acetaminophen (Hydrocodone/Apap 5-325mg 1 Each Tab) 2 each PO Q6HR PRN PRN Reason: Pain Scale 6 to 10 Hydrocodone Bitart/Acetaminophen (Hydrocodone/Apap 10-325mg 1 Each Tab) 1 each PO Q6H PRN PRN Reason: Pain Scale 6 to 10 Last Admin: 06/08/24 14:43 Dose: 1 each Albuterol Sulfate (Albuterol Nebulized 2.5 Mg/3 Ml) 2.5 mg INHALATION RT-Q4H PRN PRN Reason: Shortness Of Breath Albuterol/Ipratropium (Ipratropium-Albuterol 3 Ml Neb) 3 ml INHALATION RT-BID PRN PRN Reason: Shortness Of Breath Alprazolam (Alprazolam 1 Mg Tab) 1 mg PO TID PRN PRN Reason: Anxiety Last Admin: 06/08/24 08:41 Dose: 1 mg Aripiprazole (Aripiprazole 15 Mg Tab) 15 mg PO DAILY [facility] Last Admin: 06/08/24 08:32 Dose: 15 mg Aspirin (Aspirin 81 Mg) 81 mg PO BID [facility] Last Admin: 06/08/24 08:31 Dose: 81 mg Atorvastatin Calcium (Atorvastatin 10 Mg Tab) 10 mg PO HS [facility] Last Admin: 06/07/24 19:55 Dose: 10 mg Cholecalciferol (Cholecalciferol 25 Mcg (1000 Iu) Tablet) 50 mcg PO DAILY [facility] Last Admin: 06/08/24 08:32 Dose: 50 mcg Enoxaparin Sodium (Enoxaparin 40 Mg/0.4 Ml Syringe) 40 mg SQ DAILY [facility] Last Admin: 06/08/24 09:06 Dose: 40 mg Famotidine (Famotidine 20 Mg Tab) 20 mg PO DAILY [facility] Last Admin: 06/08/24 08:31 Dose: 20 mg Ferrous Sulfate (Ferrous Sulfate 325 Mg Tab) 325 mg PO DAILY [facility] Last Admin: 06/08/24 08:32 Dose: 325 mg Folic Acid (Folic Acid 1 Mg Tab) 1 mg PO DAILY [facility] Last Admin: 06/08/24 08:32 Dose: 1 mg Furosemide (Furosemide 20 Mg Tab) 20 mg PO DAILY [facility] Last Admin: 06/08/24 08:32 Dose: 20 mg Hydromorphone HCl (Hydromorphone 1 Mg/Ml 1 Ml Syringe) 1 mg IVP Q3HR PRN PRN Reason: Pain Last Admin: 06/07/24 07:56 Dose: 1 mg Hydromorphone HCl (Hydromorphone 0.5 Mg/0.5 Ml Syringe) 0.25 mg IVP Q3HR PRN PRN Reason: Pain Scale 4 to 6 Hydromorphone HCl (Hydromorphone 0.5 Mg/0.5 Ml Syringe) 0.5 mg IVP Q3HR PRN PRN Reason: Pain Scale 7 to 10 Last Admin: 06/08/24 05:12 Dose: 0.5 mg Hydromorphone HCl (Hydromorphone 0.5 Mg/0.5 Ml Syringe) 0.125 mg IVP Q3HR PRN PRN Reason: Pain Scale 1 to 3 Hydroxyzine Pamoate (Hydroxyzine Pamoate 25 Mg Cap) 25 mg PO Q4HR PRN PRN Reason: Nausea, Anxiety, Pain Control Sodium Chloride (Saline 0.9%) 1,000 mls @ 20 mls/hr IV .Q24H [facility] Last Admin: 06/08/24 09:59 Dose: Not Given Levothyroxine Sodium (Levothyroxine 25 Mcg Tab) 25 mcg PO DAILY [facility] Last Admin: 06/08/24 08:32 Dose: 25 mcg Metoprolol Succinate (Metoprolol Succinate (Er) 50 Mg Tab.Er.24h) 50 mg PO HS [facility] Last Admin: 06/07/24 19:55 Dose: 50 mg Morphine Sulfate (Morphine Sulfate 4 Mg/Ml Syringe) 4 mg IV Q4HR PRN PRN Reason: Severe Pain (Scale 7 to 10) Naloxone HCl (Naloxone 0.4 Mg/Ml 1 Ml Vial) 0.2 mg IV Q2M PRN PRN Reason: Opioid Reversal Naloxone HCl (Naloxone 0.4 Mg/Ml 1 Ml Vial) 0.2 mg IV Q2M PRN PRN Reason: Opioid Reversal Nystatin (Nystatin 100,000 Unit/Gm Powd 15 Gm) 1 applic TOPICAL BID [facility]; Protocol Last Admin: 06/08/24 09:07 Dose: Not Given Ondansetron HCl (Ondansetron 4 Mg Tab) 4 mg PO Q6HR PRN PRN Reason: Nausea Paroxetine HCl (Paroxetine 20 Mg Tab) 40 mg PO DAILY [facility] Last Admin: 06/08/24 08:31 Dose: 40 mg Senna/Docusate Sodium (Sennosides-Docusate Sodium 1 Each Tab) 1 each PO BID PRN PRN Reason: Constipation Social history: Smoked 1 and half pack a day for about 45 years. Stopped in 2021. No alcohol. Does smoke some marijuana. Daughter living with her. Physical examination: VITAL SIGNS: 97.8, 89, 18, 157 x 80, 95% on 3 L GENERAL: Laying in bed comfortable EYES: Pupils equal. Conjunctiva sumeet l. HEENT: External appearance of nose and ears normal, oral cavity grossly normal. NECK: JVD not raised; masses not palpable. HEART: First and second heart sounds are normal; no edema. LUNGS: Respiratory rate normal; decreased breath sounds. ABDOMEN: Soft, nontender, liver spleen not palpable, no masses palpable. PSYCH: Alert and oriented x3; mood and affect anxious MUSCULOSKELETAL:No Clubbing/cyanosis;muscles-grossly intact. OA. Limited range of motion left hip INVESTIGATIONS, reviewed in the clinical context: June 08: White count 6.9 hemoglobin 8.4 platelets 284 potassium 4.2 creatinine 0.93 June 06, 2024: White count 9.4 hemoglobin 9.8 platelets 363 sodium 137 potassium 3.9 BUN 24 creatinine 1.08 Left hip x-ray personally reviewed by me: Prosthetic ball is out of the socket EKG tracing personally reviewed by me-normal sinus rhythm. Minimal ST segment depression from V3 to V6 possible inferior leads Chest x-ray film personally reviewed by me-possible chronic changes Assessment and plan: -Left hip prosthetic joint dislocation. May 03, 2024 patient had undergone left total hip arthroplasty anterior approach, by Dr. Beth Patient taken to the OR today and left hip prosthesis was put back in place. Left knee immobilizer to decrease flexion of left hip -Essential hypertension. Currently blood pressure running on the lower side. Toprol-XL 50 mg nightly. -Chronic anemia from postprocedure blood loss On ferrous sulfate -Primary osteoarthritis Pain medications as needed -GERD PPI -Hypothyroid Synthroid 25 mcg a day -Anxiety and depression Paxil. Xanax. Abilify. -COPD in a prior smoker Spiriva. DuoNeb as needed -Hyperlipidemia Zocor 20 mg nightly -Obesity BMI 34.3 Weight loss measures -Anxiety depression Paxil 40 mg a day. Abilify 15 mg a day. Xanax as needed. -Full code Patient pending disposition to rehab Thank you Dr. Beth Past Medical History Past Medical History: COPD, Fibromyalgia, GERD/Reflux, Hyperlipidemia, Hypertension, Osteoarthritis (OA), Sleep Apnea/CPAP/BIPAP, Thyroid Disorder Additional Past Medical History / Comment(s): Sleep apnea no CPAP used, IBS. Possible CHF however different doctors differ on this diagnosis. 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 History of Any Multi-Drug Resistant Organisms: None Reported Past Surgical History: Breast Surgery, Joint Replacement, Tubal Ligation Additional Past Surgical History / Comment(s): lumpectomy left breast. Hip replacement surgery 2006. D&C 2007, colonoscopy 2017. Gallbladder 2019. left hip replacement 05/06 Past Anesthesia/Blood Transfusion Reactions: Previous Problems w/ Anesthesia Additional Past Anesthesia/Blood Transfusion Reaction / Comm: "i get violent when I come out" Past Psychological History: Anxiety, Depression Smoking Status: Former smoker Past Alcohol Use History: None Reported Additional Past Alcohol Use History / Comment(s): smokes 1 1/2 PPD FOR ABOUT 45 YRS . Quit smoking cigarettes 2021. Past Drug Use History: Marijuana
--- NOTE | 2024-06-09 10:03 | P.PN ---
Subjective Progress Note Date: 06/09/24 Principal diagnosis: Status post total left hip arthroplasty. Status post hip dislocation. Status post closed reduction left hip. This is a 73-year-old female who is postop day #2 status post closed reduction of a prosthetic hip dislocation. She states that she is having some soreness to her hip and to her ribs. She reports no fever or chills. No nausea, vomiting or diarrhea. She was up with physical therapy yesterday. She states today that she would like to go home with her daughter. Objective - Vital Signs Vital signs: Vital Signs Temp 98.7 F 06/09/24 01:38 Pulse 72 06/09/24 01:38 Resp 18 06/09/24 01:38 BP 110/67 06/09/24 01:38 Pulse Ox 93 L 06/09/24 09:21 FiO2 Intake & Output 06/08/24 06/09/24 06/09/24 18:59 06:59 18:59 Intake Total 120 Output Total 300 Balance -300 120 Intake: Oral 120 Output: Urine 300 Other: # Voids 3 - Exam This is a pleasant 73-year-old female in no acute distress. She is alert and oriented x 3. She is sitting up in the chair at bedside. Exam of the left hip reveals that her incision is well-healed. She has full foot and ankle motion without difficulty or pain. Neurovascular status to the lower extremity is intact. - Labs CBC & Chem 7: 06/08/24 03:10 06/08/24 03:10 Assessment and Plan (1) Hip dislocation, left Current Visit: Yes Status: Acute Code(s): S73.005A - UNSPECIFIED DISLOCATION OF LEFT HIP, INITIAL ENCOUNTER SNOMED Code(s): 316963079 (2) Osteoarthritis of left hip Current Visit: No Status: Acute Code(s): M16.12 - UNILATERAL PRIMARY OSTEOARTHRITIS, LEFT HIP SNOMED Code(s): 740706130803691 (3) S/P total hip arthroplasty Current Visit: No Status: Acute Code(s): Z96.649 - PRESENCE OF UNSPECIFIED ARTIFICIAL HIP JOINT SNOMED Code(s): 440800064583 Plan: The clinical findings are discussed with the patient. We will continue to work with her with physical therapy. It is discussed with the patient that she may be safer going to inpatient rehab. She is concerned about her dog and would like to be discharged home with her daughter. We will see how she does with physical therapy tomorrow.
--- NOTE | 2024-06-09 12:19 | P.PN ---
Progress Note - Text Progress Note Date: 06/09/24 Chief Complaint Left periprosthetic hip displacement - History of Present Illness Very pleasant 73-year-old patient who follows with Dr. Shrestha. Chronic stable medical condition include COPD, fibromyalgia, GERD, hypertension, hyperl ipidemia, osteoarthritis, hypothyroid supposed to use oxygen at home only to but does not use it, IBS anxiety depression. May 07, 2024, left total hip anterior arthroplasty.-By Dr. Ricky Beth. On May 25 patient had a hemoglobin of 5.3. Received 3 units of blood.. Patient was having some pain discomfort in the left hip. [place] a pop in the left hip area. Prosthesis was dislocated discovered at appointment at Dr. Beth's office. Patient is accompanied by his daughter in the room. Now scheduled for surgery tomorrow morning. June 07: Saw the patient this morning. Later the patient was taken to the OR. Left prosthetic hip was reduced. Left knee immobilizer was given to decrease hip flexion. June 08: In bed. Tolerating diet. No new issues. Pending to go to rehab. Patient sometimes uses oxygen at home. Patient use incentive spirometry. Sit up in a chair. Discussed with nurse. June 09: Tolerating diet. Pain controlled. Using incentive spirometry. To sit up in a chair. Pending rehab The Active Medications Hydrocodone Bitart/Acetaminophen (Hydrocodone/Apap 5-325mg 1 Each Tab) 1 each PO Q4HR PRN PRN Reason: Pain Scale 1 to 5 Hydrocodone Bitart/Acetaminophen (Hydrocodone/Apap 5-325mg 1 Each Tab) 2 each PO Q6HR PRN PRN Reason: Pain Scale 6 to 10 Hydrocodone Bitart/Acetaminophen (Hydrocodone/Apap 10-325mg 1 Each Tab) 1 each PO Q6H PRN PRN Reason: Pain Scale 6 to 10 Last Admin: 06/09/24 07:55 Dose: 1 each Albuterol Sulfate (Albuterol Nebulized 2.5 Mg/3 Ml) 2.5 mg INHALATION RT-Q4H PRN PRN Reason: Shortness Of Breath Albuterol/Ipratropium (Ipratropium-Albuterol 3 Ml Neb) 3 ml INHALATION RT-BID PRN PRN Reason: Shortness Of Breath Alprazolam (Alprazolam 1 Mg Tab) 1 mg PO TID PRN PRN Reason: Anxiety Last Admin: 06/08/24 08:41 Dose: 1 mg Aripiprazole (Aripiprazole 15 Mg Tab) 15 mg PO DAILY [facility] Last Admin: 06/09/24 07:55 Dose: 15 mg Aspirin (Aspirin 81 Mg) 81 mg PO BID [facility] Last Admin: 06/09/24 07:55 Dose: 81 mg Atorvastatin Calcium (Atorvastatin 10 Mg Tab) 10 mg PO HS [facility] Last Admin: 06/08/24 21:07 Dose: 10 mg Cholecalciferol (Cholecalciferol 25 Mcg (1000 Iu) Tablet) 50 mcg PO DAILY [facility] Last Admin: 06/09/24 07:55 Dose: 50 mcg Enoxaparin Sodium (Enoxaparin 40 Mg/0.4 Ml Syringe) 40 mg SQ DAILY [facility] Last Admin: 06/09/24 07:55 Dose: 40 mg Famotidine (Famotidine 20 Mg Tab) 20 mg PO DAILY [facility] Last Admin: 06/09/24 07:55 Dose: 20 mg Ferrous Sulfate (Ferrous Sulfate 325 Mg Tab) 325 mg PO DAILY [facility] Last Admin: 06/09/24 07:55 Dose: 325 mg Folic Acid (Folic Acid 1 Mg Tab) 1 mg PO DAILY [facility] Last Admin: 06/09/24 07:54 Dose: 1 mg Furosemide (Furosemide 20 Mg Tab) 20 mg PO DAILY [facility] Last Admin: 06/09/24 07:55 Dose: 20 mg Hydromorphone HCl (Hydromorphone 1 Mg/Ml 1 Ml Syringe) 1 mg IVP Q3HR PRN PRN Reason: Pain Last Admin: 06/07/24 07:56 Dose: 1 mg Hydromorphone HCl (Hydromorphone 0.5 Mg/0.5 Ml Syringe) 0.25 mg IVP Q3HR PRN PRN Reason: Pain Scale 4 to 6 Hydromorphone HCl (Hydromorphone 0.5 Mg/0.5 Ml Syringe) 0.5 mg IVP Q3HR PRN PRN Reason: Pain Scale 7 to 10 Last Admin: 06/08/24 05:12 Dose: 0.5 mg Hydromorphone HCl (Hydromorphone 0.5 Mg/0.5 Ml Syringe) 0.125 mg IVP Q3HR PRN PRN Reason: Pain Scale 1 to 3 Hydroxyzine Pamoate (Hydroxyzine Pamoate 25 Mg Cap) 25 mg PO Q4HR PRN PRN Reason: Nausea, Anxiety, Pain Control Sodium Chloride (Saline 0.9%) 1,000 mls @ 20 mls/hr IV .Q24H [facility] Last Admin: 06/08/24 09:59 Dose: Not Given Levothyroxine Sodium (Levothyroxine 25 Mcg Tab) 25 mcg PO DAILY [facility] Last Admin: 06/09/24 07:54 Dose: 25 mcg Metoprolol Succinate (Metoprolol Succinate (Er) 50 Mg Tab.Er.24h) 50 mg PO HS [facility] Last Admin: 06/08/24 21:07 Dose: 50 mg Morphine Sulfate (Morphine Sulfate 4 Mg/Ml Syringe) 4 mg IV Q4HR PRN PRN Reason: Severe Pain (Scale 7 to 10) Naloxone HCl (Naloxone 0.4 Mg/Ml 1 Ml Vial) 0.2 mg IV Q2M PRN PRN Reason: Opioid Reversal Naloxone HCl (Naloxone 0.4 Mg/Ml 1 Ml Vial) 0.2 mg IV Q2M PRN PRN Reason: Opioid Reversal Nystatin (Nystatin 100,000 Unit/Gm Powd 15 Gm) 1 applic TOPICAL BID [facility]; Protocol Last Admin: 06/09/24 07:58 Dose: 1 applic Ondansetron HCl (Ondansetron 4 Mg Tab) 4 mg PO Q6HR PRN PRN Reason: Nausea Paroxetine HCl (Paroxetine 20 Mg Tab) 40 mg PO DAILY [facility] Last Admin: 06/09/24 07:54 Dose: 40 mg Senna/Docusate Sodium (Sennosides-Docusate Sodium 1 Each Tab) 1 each PO BID PRN PRN Reason: Constipation Social history: Smoked 1 and half pack a day for about 45 years. Stopped in 2021. No alcohol. Does smoke some marijuana. Daughter living with her. Physical examination: VITAL SIGNS: 98.7, 72, 18, 110 x 67, 98% on 3 L GENERAL: Laying in bed comfortable EYES: Pupils equal. Conjunctiva sumeet l. HEENT: External appearance of nose and ears normal, oral cavity grossly normal. NECK: JVD not raised; masses not palpable. HEART: First and second heart sounds are normal; no edema. LUNGS: Respiratory rate normal; decreased breath sounds. ABDOMEN: Soft, nontender, liver spleen not palpable, no masses palpable. PSYCH: Alert and oriented x3; mood and affect anxious MUSCULOSKELETAL:No Clubbing/cyanosis;muscles-grossly intact. OA. Limited range of motion left hip INVESTIGATIONS, reviewed in the clinical context: June 08: White count 6.9 hemoglobin 8.4 platelets 284 potassium 4.2 creatinine 0.93 June 06, 2024: White count 9.4 hemoglobin 9.8 platelets 363 sodium 137 potassium 3.9 BUN 24 creatinine 1.08 Left hip x-ray personally reviewed by me: Prosthetic ball is out of the socket EKG tracing personally reviewed by me-normal sinus rhythm. Minimal ST segment depression from V3 to V6 possible inferior leads Chest x-ray film personally reviewed by me-possible chronic changes Assessment and plan: -Left hip prosthetic joint dislocation. May 03, 2024 patient had undergone left total hip arthroplasty anterior approach, by Dr. Beth Patient taken to the OR today and left hip prosthesis was put back in place. Left knee immobilizer to decrease flexion of left hip -Essential hypertension. Currently blood pressure running on the lower side. Toprol-XL 50 mg nightly. -Chronic anemia from postprocedure blood loss On ferrous sulfate -Primary osteoarthritis Pain medications as needed -GERD PPI -Hypothyroid Synthroid 25 mcg a day -Anxiety and depression Paxil. Xanax. Abilify. -COPD in a prior smoker Spiriva. DuoNeb as needed -Hyperlipidemia Zocor 20 mg nightly -Obesity BMI 34.3 Weight loss measures -Anxiety depression Paxil 40 mg a day. Abilify 15 mg a day. Xanax as needed. -Full code Disc. Pending rehab. Thank you Dr. Beth Past Medical History Past Medical History: COPD, Fibromyalgia, GERD/Reflux, Hyperlipidemia, Hypertension, Osteoarthritis (OA), Sleep Apnea/CPAP/BIPAP, Thyroid Disorder Additional Past Medical History / Comment(s): Sleep apnea no CPAP used, IBS. Possible CHF however different doctors differ on this diagnosis. 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 History of Any Multi-Drug Resistant Organisms: None Reported Past Surgical History: Breast Surgery, Joint Replacement, Tubal Ligation Additional Past Surgical History / Comment(s): lumpectomy left breast. Hip replacement surgery 2006. D&C 2007, colonoscopy 2017. Gallbladder 2019. left hip replacement 05/06 Past Anesthesia/Blood Transfusion Reactions: Previous Problems w/ Anesthesia Additional Past Anesthesia/Blood Transfusion Reaction / Comm: "i get violent when I come out" Past Psychological History: Anxiety, Depression Smoking Status: Former smoker Past Alcohol Use History: None Reported Additional Past Alcohol Use History / Comment(s): smokes 1 1/2 PPD FOR ABOUT 45 YRS . Quit smoking cigarettes 2021. Past Drug Use History: Marijuana
[2024-06-10 08:53] LABS: Basophils # (A) 0.02 X 10*3/uL (0.00-0.10); Basophils % (A) 0.3 %; Eosinophils # (A) 0.36 X 10*3/uL (0.04-0.35); Eosinophils % (A) 5.1 %; HCT 26.7 % (37.2-46.3); HGB 8.1 g/dL (12.0-15.0); Lymphocytes # (A) 1.84 X 10*3/uL (0.90-5.00); Lymphocytes % (A) 25.8 %; MCH 29.6 pg (27.0-32.0); MCHC 30.3 g/dL (32.0-37.0); MCV 97.4 FL (80.0-97.0); Mean Platelet Volume 11.8 FL (9.5-12.2); Monocytes # (A) 0.81 X 10*3/uL (0.20-1.00); Monocytes % (A) 11.4 %; NRBC Per 100 WBC 0 X 10*3/uL (0.00-0.01); Neutrophils # (A) 4.07 X 10*3/uL (1.80-7.70); Neutrophils % (A) 57.1 %; Platelet Count 237 X 10*3/uL (140-440); RBC 2.74 X 10*6/uL (4.10-5.20); RDW 18.1 % (11.5-14.5); WBC 7.12 X 10*3/uL (4.50-10.00)
--- NOTE | 2024-06-10 10:46 | P.PN ---
Progress Note - Text Progress Note Date: 06/10/24 Chief Complaint Left periprosthetic hip displacement - History of Present Illness Very pleasant 73-year-old patient who follows with Dr. Shrestha. Chronic stable medical condition include COPD, fibromyalgia, GERD, hypertension, hyperl ipidemia, osteoarthritis, hypothyroid supposed to use oxygen at home only to but does not use it, IBS anxiety depression. May 07, 2024, left total hip anterior arthroplasty.-By Dr. Ricky Beth. On May 25 patient had a hemoglobin of 5.3. Received 3 units of blood.. Patient was having some pain discomfort in the left hip. [place] a pop in the left hip area. Prosthesis was dislocated discovered at appointment at Dr. Beth's office. Patient is accompanied by his daughter in the room. Now scheduled for surgery tomorrow morning. June 07: Saw the patient this morning. Later the patient was taken to the OR. Left prosthetic hip was reduced. Left knee immobilizer was given to decrease hip flexion. June 08: In bed. Tolerating diet. No new issues. Pending to go to rehab. Patient sometimes uses oxygen at home. Patient use incentive spirometry. Sit up in a chair. Discussed with nurse. June 09: Tolerating diet. Pain controlled. Using incentive spirometry. To sit up in a chair. Pending rehab June 10: No new issues. Patient is wondering if she can go home. Looking into PT OT rehab versus home. Otherwise medically stable. Active Medications Hydrocodone Bitart/Acetaminophen (Hydrocodone/Apap 5-325mg 1 Each Tab) 1 each PO Q4HR PRN PRN Reason: Pain Scale 1 to 5 Hydrocodone Bitart/Acetaminophen (Hydrocodone/Apap 5-325mg 1 Each Tab) 2 each PO Q6HR PRN PRN Reason: Pain Scale 6 to 10 Hydrocodone Bitart/Acetaminophen (Hydrocodone/Apap 10-325mg 1 Each Tab) 1 each PO Q6H PRN PRN Reason: Pain Scale 6 to 10 Last Admin: 06/09/24 22:21 Dose: 1 each Albuterol Sulfate (Albuterol Nebulized 2.5 Mg/3 Ml) 2.5 mg INHALATION RT-Q4H PRN PRN Reason: Shortness Of Breath Albuterol/Ipratropium (Ipratropium-Albuterol 3 Ml Neb) 3 ml INHALATION RT-BID PRN PRN Reason: Shortness Of Breath Alprazolam (Alprazolam 1 Mg Tab) 1 mg PO TID PRN PRN Reason: Anxiety Last Admin: 06/10/24 08:36 Dose: 1 mg Aripiprazole (Aripiprazole 15 Mg Tab) 15 mg PO DAILY [facility] Last Admin: 06/10/24 08:34 Dose: 15 mg Aspirin (Aspirin 81 Mg) 81 mg PO BID [facility] Last Admin: 06/10/24 08:34 Dose: 81 mg Atorvastatin Calcium (Atorvastatin 10 Mg Tab) 10 mg PO HS [facility] Last Admin: 06/09/24 20:12 Dose: 10 mg Cholecalciferol (Cholecalciferol 25 Mcg (1000 Iu) Tablet) 50 mcg PO DAILY [facility] Last Admin: 06/10/24 08:34 Dose: 50 mcg Enoxaparin Sodium (Enoxaparin 40 Mg/0.4 Ml Syringe) 40 mg SQ DAILY [facility] Last Admin: 06/10/24 08:33 Dose: 40 mg Famotidine (Famotidine 20 Mg Tab) 20 mg PO DAILY [facility] Last Admin: 06/10/24 08:33 Dose: 20 mg Ferrous Sulfate (Ferrous Sulfate 325 Mg Tab) 325 mg PO DAILY [facility] Last Admin: 06/10/24 08:33 Dose: 325 mg Folic Acid (Folic Acid 1 Mg Tab) 1 mg PO DAILY [facility] Last Admin: 06/10/24 08:34 Dose: 1 mg Furosemide (Furosemide 20 Mg Tab) 20 mg PO DAILY [facility] Last Admin: 06/09/24 07:55 Dose: 20 mg Hydromorphone HCl (Hydromorphone 1 Mg/Ml 1 Ml Syringe) 1 mg IVP Q3HR PRN PRN Reason: Pain Last Admin: 06/07/24 07:56 Dose: 1 mg Hydromorphone HCl (Hydromorphone 0.5 Mg/0.5 Ml Syringe) 0.25 mg IVP Q3HR PRN PRN Reason: Pain Scale 4 to 6 Hydromorphone HCl (Hydromorphone 0.5 Mg/0.5 Ml Syringe) 0.5 mg IVP Q3HR PRN PRN Reason: Pain Scale 7 to 10 Last Admin: 06/08/24 05:12 Dose: 0.5 mg Hydromorphone HCl (Hydromorphone 0.5 Mg/0.5 Ml Syringe) 0.125 mg IVP Q3HR PRN PRN Reason: Pain Scale 1 to 3 Hydroxyzine Pamoate (Hydroxyzine Pamoate 25 Mg Cap) 25 mg PO Q4HR PRN PRN Reason: Nausea, Anxiety, Pain Control Sodium Chloride (Saline 0.9%) 1,000 mls @ 20 mls/hr IV .Q24H [facility] Last Admin: 06/09/24 15:55 Dose: Not Given Levothyroxine Sodium (Levothyroxine 25 Mcg Tab) 25 mcg PO DAILY [facility] Last Admin: 06/10/24 08:34 Dose: 25 mcg Metoprolol Succinate (Metoprolol Succinate (Er) 50 Mg Tab.Er.24h) 50 mg PO HS [facility] Last Admin: 06/09/24 20:12 Dose: 50 mg Morphine Sulfate (Morphine Sulfate 4 Mg/Ml Syringe) 4 mg IV Q4HR PRN PRN Reason: Severe Pain (Scale 7 to 10) Naloxone HCl (Naloxone 0.4 Mg/Ml 1 Ml Vial) 0.2 mg IV Q2M PRN PRN Reason: Opioid Reversal Naloxone HCl (Naloxone 0.4 Mg/Ml 1 Ml Vial) 0.2 mg IV Q2M PRN PRN Reason: Opioid Reversal Nystatin (Nystatin 100,000 Unit/Gm Powd 15 Gm) 1 applic TOPICAL BID [facility]; Protocol Last Admin: 06/10/24 08:41 Dose: 1 applic Ondansetron HCl (Ondansetron 4 Mg Tab) 4 mg PO Q6HR PRN PRN Reason: Nausea Paroxetine HCl (Paroxetine 20 Mg Tab) 40 mg PO DAILY [facility] Last Admin: 06/10/24 08:33 Dose: 40 mg Senna/Docusate Sodium (Sennosides-Docusate Sodium 1 Each Tab) 1 each PO BID PRN PRN Reason: Constipation Social history: Smoked 1 and half pack a day for about 45 years. Stopped in 2021. No alcohol. Does smoke some marijuana. Daughter living with her. Physical examination: VITAL SIGNS: 97.7, 78, 18, 105 x 75, 90% on 2 L GENERAL: Laying in bed comfortable EYES: Pupils equal. Conjunctiva sumeet l. HEENT: External appearance of nose and ears normal, oral cavity grossly normal. NECK: JVD not raised; masses not palpable. HEART: First and second heart sounds are normal; no edema. LUNGS: Respiratory rate normal; decreased breath sounds. ABDOMEN: Soft, nontender, liver spleen not palpable, no masses palpable. PSYCH: Alert and oriented x3; mood and affect anxious MUSCULOSKELETAL:No Clubbing/cyanosis;muscles-grossly intact. OA. Limited range of motion left hip INVESTIGATIONS, reviewed in the clinical context: June 10: White count 7.1 hemoglobin 8.1 June 08: White count 6.9 hemoglobin 8.4 platelets 284 potassium 4.2 creatinine 0.93 June 06, 2024: White count 9.4 hemoglobin 9.8 platelets 363 sodium 137 potassium 3.9 BUN 24 creatinine 1.08 Left hip x-ray personally reviewed by me: Prosthetic ball is out of the socket EKG tracing personally reviewed by me-normal sinus rhythm. Minimal ST segment depression from V3 to V6 possible inferior leads Chest x-ray film personally reviewed by me-possible chronic changes Assessment and plan: -Left hip prosthetic joint dislocation. May 03, 2024 patient had undergone left total hip arthroplasty anterior approach, by Dr. Beth Patient taken to the OR - left hip prosthesis was put back in place. Left knee immobilizer to decrease flexion of left hip -Essential hypertension. Currently blood pressure running on the lower side. Toprol-XL 50 mg nightly. -Chronic anemia from postprocedure blood loss On ferrous sulfate 1 dose of IV Ferrlecit -Primary osteoarthritis Pain medications as needed -GERD PPI -Hypothyroid Synthroid 25 mcg a day -Anxiety and depression Paxil. Xanax. Abilify. -COPD in a prior smoker Spiriva. DuoNeb as needed -Hyperlipidemia Zocor 20 mg nightly -Obesity BMI 34.3 Weight loss measures -Anxiety depression Paxil 40 mg a day. Abilify 15 mg a day. Xanax as needed. -Full code Pending discharge/rehab. 1 dose of IV Ferrlecit. Thank you Dr. Beth Past Medical History Past Medical History: COPD, Fibromyalgia, GERD/Reflux, Hyperlipidemia, Hypertension, Osteoarthritis (OA), Sleep Apnea/CPAP/BIPAP, Thyroid Disorder Additional Past Medical History / Comment(s): Sleep apnea no CPAP used, IBS. Possible CHF however different doctors differ on this diagnosis. 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 History of Any Multi-Drug Resistant Organisms: None Reported Past Surgical History: Breast Surgery, Joint Replacement, Tubal Ligation Additional Past Surgical History / Comment(s): lumpectomy left breast. Hip r eplacement surgery 2007. D&C 2008, colonoscopy 2018. Gallbladder 2019. left hip replacement 05/06 Past Anesthesia/Blood Transfusion Reactions: Previous Problems w/ Anesthesia Additional Past Anesthesia/Blood Transfusion Reaction / Comm: "i get violent when I come out" Past Psychological History: Anxiety, Depression Smoking Status: Former smoker Past Alcohol Use History: None Reported Additional Past Alcohol Use History / Comment(s): smokes 1 1/2 PPD FOR ABOUT 45 YRS . Quit smoking cigarettes 2021. Past Drug Use History: Marijuana
--- NOTE | 2024-06-10 12:47 | P.PN ---
Subjective Patient pain is better today. Has been up several times to the bathroom. Objective - Vital Signs Vital signs: Vital Signs Temp 97.7 F 06/10/24 06:59 Pulse 78 06/10/24 08:36 Resp 18 06/10/24 08:36 BP 105/75 06/10/24 06:59 Pulse Ox 90 L 06/10/24 06:59 FiO2 Intake & Output 06/09/24 06/10/24 06/10/24 18:59 06:59 18:59 Other: Voiding Method Toilet Toilet # Voids 5 3 2 - Exam Sitting comfortably at bedside in a chair. No apparent distress. Knee immobilizer in place. Healed incision. Mild swelling throughout the thigh. Femoral nerve function appears to be intact although difficult to assess in knee immobilizer. Moves ankle and toes up and down. - Labs CBC & Chem 7: 06/10/24 05:34 06/08/24 03:10 Labs: Abnormal Lab Results - Last 24 Hours (Table) 06/10/24 Range/Units 05:34 RBC 2.74 L (4.10-5.20) X 10*6/uL Hgb 8.1 L (12.0-15.0) g/dL Hct 26.7 L (37.2-46.3) % MCV 97.4 H (80.0-97.0) FL MCHC 30.3 L (32.0-37.0) g/dL RDW 18.1 H (11.5-14.5) % Eosinophils # 0.36 H (0.04-0.35) X 10*3/uL Assessment and Plan Assessment: s/p closed reduction left prosthetic hip dislocation multiple medical problems Plan: Continue WBAT with assistance and global hip precautions. The patient is requested to go home. I would like to see how she does with PT today and what their recommendation are based on how she does.
[2024-06-10] MEDS: SODIUM FERRIC GLUCONAT-SUCROSE 125 MG in SODIUM CHLORIDE 0.9% 100 ML IVPB ONE (13:32)
[2024-06-10] MEDS: ONDANSETRON 4 MG TAB PO PRN (17:03)
[2024-06-11 13:46] VITALS: BP 135/74; PULSE 78; RESP 16; TEMP 98.1
--- NOTE | 2024-06-11 13:49 | P.DS ---
Providers Date of admission: 06/06/24 14:20 Attending physician: Ricky Beth Consults: 06/06/24 14:16 Consult Physician Routine Consulting Provider: Rodger Villagomez Consult Reason/Comments: medicine consult Do you want consulting provider notified?: Yes Primary care physician: Arron Shrestha - Discharge Diagnosis(es) (1) S/P total hip arthroplasty Current Visit: No Status: Acute Hospital Course: Patient recently underwent left direct anterior total hip arthroplasty on 05/03/2024. She was doing very well in the perioperative period with almost no pain in her left hip. On 06/06/2024 the patient fell forward while sitting down and felt pain in her hip and was unable to bear weight immediately afterwards. She presented to Dr. Beth's outpatient office for x-rays which showed a dislocation of her left hip. She was sent to the emergency department as a direct admission. On 06/07/2024 the patient underwent closed reduction of left hip. She tolerated the procedure well. She was then transferred to the floor. Patient was evaluated the next day and it was determined she was ready to start physical therapy. On 06/08/2024 and 06/11/2024 patient worked with physical therapy and was determined to be safe to discharge home with her daughter with hip precautions and knee immobilizer until 2 week outpatient follow up with Dr. Beth. Assessment: Assessment: Status post left direct anterior total hip arthroplasty on 05/03/2024. Status post hip dislocation. Status post closed reduction of left hip on 06/07/2024. Patient Condition at Discharge: Serious Plan - Discharge Summary Discharge Rx Participant: No New Discharge Prescriptions: New Aspirin 81 mg PO BID #60 tab HYDROcodone/APAP 5-325MG [[place] 5] 1 each PO Q6HR PRN #28 tab PRN Reason: Pain Famotidine [Pepcid] 20 mg PO DAILY tab Continue Simvastatin [Zocor] 20 mg PO HS Albuterol Sulfate [Albuterol Sulfate Hfa] 2 puff INHALATION RT-Q4H PRN PRN Reason: Shortness Of Breath Folic Acid 1 mg PO DAILY Cholecalciferol [Vitamin D3 (25 Mcg = 1000 Iu)] 50 mcg PO DAILY Levothyroxine Sodium [Synthroid] 25 mcg PO DAILY Mupirocin 2% Oint [Bactroban 2% Oint] 1 applic TOPICAL BID Sennosides-Docusate Sodium [Senokot-S] 1 tab PO BID PRN #60 tablet PRN Reason: Constipation Ondansetron [Zofran] 4 mg PO Q6HR PRN #30 tab PRN Reason: Nausea Tiotropium 2.5 Mcg/Puff [Spiriva Respimat 2.5 Mcg] 1 puff INHALATION RT-DAILY ARIPiprazole [Abilify] 15 mg PO DAILY Ferrous Sulfate [Iron (65 MG Elemental)] 325 mg PO DAILY Doxycycline Hyclate 100 mg PO BID PARoxetine HCL [Paxil] 40 mg PO DAILY Metoprolol Succinate [Toprol XL] 50 mg PO HS Torsemide [Demadex] 20 mg PO DAILY Nystatin 100,000 Unit/gm Powd [Mycostatin Powder] 1 applic TOPICAL BID Ipratropium-Albuterol Nebulize [Duoneb 0.5 mg-3 mg/3 ml Soln] 3 ml INHALATION RT-BID PRN PRN Reason: Shortness Of Breath ALPRAZolam [Xanax] 1 mg PO TID PRN #9 tab PRN Reason: Anxiety Discontinued oxyCODONE-APAP 5-325MG [Percocet 5-325 mg] 1 tab PO Q6H PRN PRN Reason: Pain Docusate [Colace] 100 mg PO DAILY Aspirin EC [Ecotrin Low Dose] 81 mg PO DAILY Discharge Medication List Simvastatin [Zocor] 20 mg PO HS 05/28/17 [History] Albuterol Sulfate [Albuterol Sulfate Hfa] 2 puff INHALATION RT-Q4H PRN 02/14/23 [History] Folic Acid 1 mg PO DAILY 02/14/23 [History] Metoprolol Succinate [Toprol XL] 50 mg PO HS 02/14/23 [History] PARoxetine HCL [Paxil] 40 mg PO DAILY 02/14/23 [History] Cholecalciferol [Vitamin D3 (25 Mcg = 1000 Iu)] 50 mcg PO DAILY 09/08/23 [History] Levothyroxine Sodium [Synthroid] 25 mcg PO DAILY 09/08/23 [History] Mupirocin 2% Oint [Bactroban 2% Oint] 1 applic TOPICAL BID 04/30/24 [History] Ondansetron [Zofran] 4 mg PO Q6HR PRN #30 tab 05/03/24 [Rx] Sennosides-Docusate Sodium [Senokot-S] 1 tab PO BID PRN #60 tablet 05/03/24 [Rx] ARIPiprazole [Abilify] 15 mg PO DAILY 06/06/24 [History] Doxycycline Hyclate 100 mg PO BID 06/06/24 [History] Ferrous Sulfate [Iron (65 MG Elemental)] 325 mg PO DAILY 06/06/24 [History] Ipratropium-Albuterol Nebulize [Duoneb 0.5 mg-3 mg/3 ml Soln] 3 ml INHALATION RT-BID PRN 06/06/24 [History] Nystatin 100,000 Unit/gm Powd [Mycostatin Powder] 1 applic TOPICAL BID 06/06/24 [History] Tiotropium 2.5 Mcg/Puff [Spiriva Respimat 2.5 Mcg] 1 puff INHALATION RT-DAILY 06/06/24 [History] Torsemide [Demadex] 20 mg PO DAILY 06/06/24 [History] Aspirin 81 mg PO BID #60 tab 06/07/24 [Rx] HYDROcodone/APAP 5-325MG [[place] 5] 1 each PO Q6HR PRN #28 tab 06/07/24 [Rx] ALPRAZolam [Xanax] 1 mg PO TID PRN #9 tab 06/10/24 [Rx] Famotidine [Pepcid] 20 mg PO DAILY tab 06/10/24 [Rx] Follow up Appointment(s)/Referral(s): [facility] [[facility]] - As Needed ([facility] will call you to schedule your in home nursing, physical therapy, and occupational therapy visits. ) Arron Shrestha MD [Primary Care Provider] - 1-2 days Ricky Beth MD [Medical Doctor] - 06/25/24 9:00 am Patient Instructions/Handouts: Hip Dislocation (DC) Activity/Diet/Wound Care/Special Instructions: 1. Weight-bear as tolerated on your operative extremity unless instructed otherwise. Use a walker or other assistive device to ambulate. 2. Wear knee immobilizer until follow up. 3. Limit hip flexion to 90 degrees until follow up. 4. Take your blood clot prevention medication as prescribed (aspirin, Eliquis, Xarelto, and Plavix are commonly prescribed medications for blood clot prevention) 5. While taking [place] or Percocet for pain take a stool softener (Ex: Colace) and drink lots of water. 6. Keep all follow-up appointments as scheduled. You will usually be seen in 1-2 weeks following surgery. 7. Please contact the office with any questions or concerns [phone] Discharge Disposition: HOME SELF-CARE
--- NOTE | 2024-06-11 18:09 | P.PN ---
Progress Note - Text Progress Note Date: 06/11/24 Chief Complaint Left periprosthetic hip displacement - History of Present Illness Very pleasant 73-year-old patient who follows with Dr. Shrestha. Chronic stable medical condition include COPD, fibromyalgia, GERD, hypertension, hyperl ipidemia, osteoarthritis, hypothyroid supposed to use oxygen at home only to but does not use it, IBS anxiety depression. May 07, 2024, left total hip anterior arthroplasty.-By Dr. Ricky Beth. On May 25 patient had a hemoglobin of 5.3. Received 3 units of blood.. Patient was having some pain discomfort in the left hip. [place] a pop in the left hip area. Prosthesis was dislocated discovered at appointment at Dr. Beth's office. Patient is accompanied by his daughter in the room. Now scheduled for surgery tomorrow morning. June 07: Saw the patient this morning. Later the patient was taken to the OR. Left prosthetic hip was reduced. Left knee immobilizer was given to decrease hip flexion. June 08: In bed. Tolerating diet. No new issues. Pending to go to rehab. Patient sometimes uses oxygen at home. Patient use incentive spirometry. Sit up in a chair. Discussed with nurse. June 09: Tolerating diet. Pain controlled. Using incentive spirometry. To sit up in a chair. Pending rehab June 10: No new issues. Patient is wondering if she can go home. Looking into PT OT rehab versus home. Otherwise medically stable. June 11: Sitting up in a recliner. Doing well. Pain controlled. Daughter and granddaughter at bedside. Questions answered. Social history: Smoked 1 and half pack a day for about 45 years. Stopped in 2021. No alcohol. Does smoke some marijuana. Daughter living with her. Physical examination: VITAL SIGNS: 98.1, 78, 16, 135/74, 96% on 2 L GENERAL: Up in recliner EYES: Pupils equal. Conjunctiva sumeet l. HEENT: External appearance of nose and ears normal, oral cavity grossly normal. NECK: JVD not raised; masses not palpable. HEART: First and second heart sounds are normal; no edema. LUNGS: Respiratory rate normal; decreased breath sounds. ABDOMEN: Soft, nontender, liver spleen not palpable, no masses palpable. PSYCH: Alert and oriented x3; mood and affect anxious MUSCULOSKELETAL:No Clubbing/cyanosis;muscles-grossly intact. OA. Limited range of motion left hip INVESTIGATIONS, reviewed in the clinical context: June 10: White count 7.1 hemoglobin 8.1 June 08: White count 6.9 hemoglobin 8.4 platelets 284 potassium 4.2 creatinine 0.93 June 06, 2024: White count 9.4 hemoglobin 9.8 platelets 363 sodium 137 potassium 3.9 BUN 24 creatinine 1.08 Left hip x-ray personally reviewed by me: Prosthetic ball is out of the socket EKG tracing personally reviewed by me-normal sinus rhythm. Minimal ST segment depression from V3 to V6 possible inferior leads Chest x-ray film personally reviewed by me-possible chronic changes Assessment and plan: -Left hip prosthetic joint dislocation. May 03, 2024 patient had undergone left total hip arthroplasty anterior approach, by Dr. Beth Patient taken to the OR - left hip prosthesis was put back in place. Left knee immobilizer to decrease flexion of left hip -Essential hypertension. Currently blood pressure running on the lower side. Toprol-XL 50 mg nightly. -Chronic anemia from postprocedure blood loss On ferrous sulfate 1 dose of IV Ferrlecit -Primary osteoarthritis Pain medications as needed -GERD PPI -Hypothyroid Synthroid 25 mcg a day -Anxiety and depression Paxil. Xanax. Abilify. -COPD in a prior smoker Spiriva. DuoNeb as needed -Hyperlipidemia Zocor 20 mg nightly -Obesity BMI 34.3 Weight loss measures -Anxiety depression Paxil 40 mg a day. Abilify 15 mg a day. Xanax as needed. -Full code Discussed with the patient daughter and granddaughter. Told to get a CBC check ed next week. Questions answered. Thank you Dr. Beth Past Medical History Past Medical History: COPD, Fibromyalgia, GERD/Reflux, Hyperlipidemia, Hypertension, Osteoarthritis (OA), Sleep Apnea/CPAP/BIPAP, Thyroid Disorder Additional Past Medical History / Comment(s): Sleep apnea no CPAP used, IBS. Possible CHF however different doctors differ on this diagnosis. 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 History of Any Multi-Drug Resistant Organisms: None Reported Past Surgical History: Breast Surgery, Joint Replacement, Tubal Ligation Additional Past Surgical History / Comment(s): lumpectomy left breast. Hip replacement surgery 2006. D&C 2007, colonoscopy 2017. Gallbladder 2019. left hip replacement 05/06 Past Anesthesia/Blood Transfusion Reactions: Previous Problems w/ Anesthesia Additional Past Anesthesia/Blood Transfusion Reaction / Comm: "i get violent when I come out" Past Psychological History: Anxiety, Depression Smoking Status: Former smoker Past Alcohol Use History: None Reported Additional Past Alcohol Use History / Comment(s): smokes 1 1/2 PPD FOR ABOUT 45 YRS . Quit smoking cigarettes 2021. Past Drug Use History: Marijuana
== END 2024-06-11 14:00 | disposition home or self-care (01) | DRG 561 ==
LOC: EC 13:59 → 4SSUR 14:20
PROVIDERS: ADMIT Orthopaedic Surgery; ATTEND Orthopaedic Surgery
PROC: 0SWBXJZ Revision of Synthetic Substitute in Left Hip Joint, External Approach (ICD-10-PCS; principal; 2024-06-07 07:30)
DX: T84.021A Dislocation of internal left hip prosthesis, initial encounter (principal); Y79.2 Prosthetic and other implants, materials and accessory orthopedic devices associated with adverse incidents; W19.XXXA Unspecified fall, initial encounter; M79.7 Fibromyalgia; Z68.34 Body mass index [BMI] 34.0-34.9, adult; E66.9 Obesity, unspecified; D50.0 Iron deficiency anemia secondary to blood loss (chronic); E03.9 Hypothyroidism, unspecified; E78.5 Hyperlipidemia, unspecified; Z71.3 Dietary counseling and surveillance; I10 Essential (primary) hypertension; F41.9 Anxiety disorder, unspecified; F32.A Depression, unspecified; K58.9 Irritable bowel syndrome, unspecified; M16.12 Unilateral primary osteoarthritis, left hip; J44.9 Chronic obstructive pulmonary disease, unspecified; K21.9 Gastro-esophageal reflux disease without esophagitis; Z87.891 Personal history of nicotine dependence; Z79.82 Long term (current) use of aspirin; Z79.890 Hormone replacement therapy; Z79.899 Other long term (current) drug therapy; Z82.49 Family history of ischemic heart disease and other diseases of the circulatory system; Z98.51 Tubal ligation status; Z87.19 Personal history of other diseases of the digestive system; Z88.8 Allergy status to other drugs, medicaments and biological substances
CPT/HCPCS: 36415; 71045; 73501; 80048; 85025; 85610; 85730; 86850; 86900; 86901; 93005; 94760; 96361; 96374; 99285